=== PATIENT | female | born 1940 | race African-American/Black ===

== ENCOUNTER 2016-08-09 20:18 | Observation (INO) | payer MEDICARE ==
[~2016-08-09] VITALS: Ht 160 cm; Wt 72.1 kg
[2016-08-09 21:48] LABS: BASOPHILS 0.2 % (0-2); EOSINOPHILS 0.6 % (0-7); HEMATOCRIT 33.1 % (36.0-48.0); HEMOGLOBIN 10.5 g/dL (12-16); IMMATURE GRANULOCYTES 0.2 % (0-5); LYMPHOCYTES 20.2 % (15-50); MCHC 31.7 g/dL (31.0-37.0); MCV 91.4 fL (80.0-100.0); MEAN PLATELET VOLUME 9.9 fL (7.4-10.4); MONOCYTES 7.7 % (2-11); NEUTROPHILS 71.1 % (40-80); PLATELET COUNT 162 10x3/uL (130-400); RBC 3.62 10x6/uL (4.00-5.40); WBC 6.2 10x3/uL (4.8-10.8)
[2016-08-09 22:08] LABS: APPEARANCE CLEAR (CLEAR); BILIRUBIN NEGATIVE (NEGATIVE); COLOR YELLOW (YELLOW); GLUCOSE NEGATIVE (NEGATIVE); KETONE NEGATIVE (NEGATIVE); NITRITE NEGATIVE (NEGATIVE); PROTEIN TRACE mg/dL (NEGATIVE); UROBILINOGEN NORMAL (NORMAL)
[2016-08-09 22:11] LABS: LEUKOCYTE ESTERASE NEGATIVE (NEGATIVE)
[2016-08-09 22:14] LABS: ALBUMIN 3.6 g/dL (3.4-5.0); ANION GAP 13.8 mmol/L (8-16); BILIRUBIN - TOTAL 0.16 mg/dL (0.2-1.3); CALCIUM 8.6 mg/dL (8.5-10.1); CARBON DIOXIDE 26.4 mmol/L (21.0-32.0); CREATININE - SERUM 2.8 mg/dL (0.6-1.3); POTASSIUM - SERUM 4.2 mmol/L (3.5-5.1); PROTEIN - SERUM 7.1 g/dL (6.4-8.2)
--- NOTE | 2016-08-10 02:03 | NUR ---
RECEIVED FROM ER, PT STATES WOULD LIKE TO BE LEFT ALONE FOR A LITTLE WHILE,ER SAID BLOODSUGAR WAS 85, WILL CONTINUE TO MONITOR, BED IS LOW, SRX2, CALL LIGHT IN REACH,
[2016-08-10] MEDS ORDERED: K-TAB10 MEQ PO (02:50)
[2016-08-10] MEDS ORDERED: FUROSEMIDE20 MG PO (02:51)
[2016-08-10] MEDS ORDERED: METOPROLOL TAR100 M1 PO (02:52)
[2016-08-10] MEDS ORDERED: HYDRALAZINE HCL50 MG PO (02:53)
[2016-08-10] MEDS ORDERED: PRINIVIL20 MG PO (02:54)
[2016-08-10] MEDS ORDERED: NORVASC10 MG PO (02:54)
[2016-08-10 04:00] VITALS: BP 185/67
[2016-08-10 05:17] VITALS: Ht 160 cm; Wt 72.1 kg
--- NOTE | 2016-08-10 07:00 | NUR ---
RECEIVED REPORT. ASSUMED CARE OF PATIENT. CALL LIGHT WITHIN REACH. LYING ON RIGHT LATERAL SIDE, EYES CLOSED, EASILY AROUSED. RESP EVEN AND UNLABORED. ALERT/ORIENTED. DENIES NEEDS. NO DISTRESS.
[2016-08-10 08:00] VITALS: BP 172/62
--- NOTE | 2016-08-10 08:26 | NUR ---
SITTING UP IN BED CONSUMING AM MEAL AT THIS TIME. ALERT/ORIENTED. IV FLUIDS INFUSING ORDERED.
--- NOTE | 2016-08-10 11:00 | NUR ---
FSBS 91. NO DISTRESS.
--- NOTE | 2016-08-10 11:30 | NUR ---
22 GAUGE IV PLACED TO RIGHT HAND BY KARINA NEWELL. GOOD BLOOD RETURN, EASY FLUSH. TAPED, DATED AND SECURED. IV FLUIDS INFUSING ORDERED. 18 GAUGE IV TO RIGHT AC FOUND TO HAVE INFILTRATED DRESSING LOOSE ON TOP OF IV CATH SITE. 18 GAUGE CATHETER REMOVED, CATHETER TIP INTACT. 2X2 GAUZE APPLIED AND SECURED WITH TAPE. NO DISTRESS.
[2016-08-10 12:00] VITALS: BP 184/65
[2016-08-10 13:58] LABS: BASOPHILS 0.2 % (0-2); EOSINOPHILS 1.5 % (0-7); HEMATOCRIT 29.9 % (36.0-48.0); HEMOGLOBIN 9.7 g/dL (12-16); IMMATURE GRANULOCYTES 0.2 % (0-5); LYMPHOCYTES 34.2 % (15-50); MCH 29.7 pg (26.0-34.0); MCHC 32.4 g/dL (31.0-37.0); MCV 91.4 fL (80.0-100.0); MEAN PLATELET VOLUME 10.6 fL (7.4-10.4); MONOCYTES 6.7 % (2-11); NEUTROPHILS 57.2 % (40-80); PLATELET COUNT 176 10x3/uL (130-400); RBC 3.27 10x6/uL (4.00-5.40); RDW 15.1 % (11.5-14.5); WBC 5.2 10x3/uL (4.8-10.8)
[2016-08-10 14:10] LABS: % SATURATION 28 % (15-55); IRON 59 ug/dl (35-150); TOTAL IRON BIND CAPACITY 210 ug/dl (260-445); UNSAT IRON BIND CAPACITY 151 ug/dl (150-375)
[2016-08-10 14:26] LABS: CALCIUM 8.2 mg/dL (8.5-10.1); CARBON DIOXIDE 27.6 mmol/L (21.0-32.0); CREATININE - SERUM 2.4 mg/dL (0.6-1.3); POTASSIUM - SERUM 4.6 mmol/L (3.5-5.1)
[2016-08-10 14:32] LABS: HEMOGLOBIN A1C 5.7 % (4.8-6.0)
[2016-08-10 15:08] LABS: ERYTHROCYTE SEDIMENTATION RATE 18 mm/hr (0-30)
[2016-08-10 15:35] LABS: APPEARANCE CLEAR (CLEAR); BILIRUBIN NEGATIVE (NEGATIVE); COLOR STRAW (YELLOW); GLUCOSE NEGATIVE (NEGATIVE); KETONE NEGATIVE (NEGATIVE); LEUKOCYTE ESTERASE NEGATIVE (NEGATIVE); NITRITE NEGATIVE (NEGATIVE); PROTEIN TRACE mg/dL (NEGATIVE); SPECIFIC GRAVITY 1.005 (1.005-1.020); UROBILINOGEN NORMAL (NORMAL)
[2016-08-10 15:37] LABS: PRO/CRE RATIO URINE 1.9 mg/g; PROTEIN - URINE 51.8 mg/dL (0.0-11.9)
[2016-08-10 15:42] LABS: BACTERIA FEW /hpf (NONE SEEN); EPITHELIAL CELLS OCC /hpf (0-5); HYALINE CAST RARE /lpf (NONE SEEN); RED CELLS - URINE RARE /hpf (0-5); WHITE CELLS - URINE OCC /hpf (0-5)
[2016-08-10 16:00] VITALS: BP 169/69
--- NOTE | 2016-08-10 16:00 | NUR ---
DENIES NEEDS AT THIS TIME. CALL LIGHT WITHIN REACH. SPECIMENS COLLECTED AND TAKEN TO LAB. NO DISTRESS.
--- NOTE | 2016-08-10 18:11 | NUR ---
RESTING IN BED WITH EYES OPEN. WAITING FOR DISCHARGE PAPERWORK TO BE COMPLETED AT THIS TIME. NO DISTRESS. CALL LIGHT WITHIN REACH.
--- NOTE | 2016-08-10 19:19 | NUR ---
DISCHARGE INSTRUCTIONS PROVIDED TO PATIENT AT THIS TIME. PATIENT VERBALIZED ALL INSTRUCTIONS PROVIDED. DENIES NEEDS AT THIS TIME. PATIENT STATES HER FAMILY IS ON HER WAY TO GET HER. IV TO BE D/C'D BY NOC NURSE.
--- NOTE | 2016-08-10 19:57 | NUR ---
REMOVED IV, CATHER INTACT, PT BEING DISCHARGED HOME [facility] FAMILY, REFUSED TO BE TAKEN DOWN VIA WHEELCHAIR
[2016-08-13 07:18] LABS: FOLATE (FOLIC ACID) - SERUM 10.1 ng/mL (>3.0)
== END 2016-08-10 19:58 | disposition home or self-care (01) ==
LOC: D.ER 20:18 → D.M2 23:13 → OBSVTIME 23:13 → D.M2 23:13
PROVIDERS: Internal Medicine Nephrology; Physician Assistant; ADMIT Family Medicine
DX: E16.2 Hypoglycemia, unspecified (principal); I10 Essential (primary) hypertension; N17.9 Acute kidney failure, unspecified; D64.9 Anemia, unspecified

== ENCOUNTER 2018-05-06 10:34 | Inpatient (IN) | payer MEDICARE ==
[~2018-05-06] VITALS: Ht 160 cm; Wt 66.0 kg
--- NOTE | ~2018-05-06 | EC ---
PATIENT:JESS REYES DATE OF SERVICE: 05/09/18 SEX: F MEDICAL RECORD: [id number] DATE OF : 40 LOCATION:D.M2 D.210 AGE OF PATIENT: 78 ADMISSION DATE: 05/09/18 REFERRING PHYSICIAN: INTERPRETING PHYSICIAN: KELY GREENBERG MD ECHOCARDIOGRAM REPORT ECHO CHARGES 4 ECHO COMPLETE Date: 05/10/18 CLINICAL DIAGNOSIS: EVAL FUNCTION, WEAKNESS/SOB ECHOCARDIOGRAPHIC MEASUREMENTS (adult normal given) AC root (d.<3.7cm) 3.4 cm LV Septum d (<1.2 cm> 1.5 cm Valve Excursion 1.7 cm LV Septum (systole) 1.6 cm Left Atria (s.<4.0cm> 4.4 cm LVPW d(<1.2cm) 1.4 cm RV (d.<2.3cm) 3.9 cm LVPW (sytole) 1.8 cm LV diastole(<5.6CM) 4.2 cm MV E-F(>70mm/sec) cm LV systole 2.6 cm LVOT Diameter 1.8 cm MV exc.(>10mm) 2.2 cm Est.ejection fraction (50-75%) % DOPPLER: LVIT cm/sec A 86.0 cm/sec E 86.0 cm/sec LA cm/sec RVSP 48 mmHg LVOT 104 cm/sec AOP1/2T m/s Asc. Ao 172 cm/sec RVOT 150 cm/sec RA cm/sec PA 188 cm/sec AV Gradient Peak 11.77mmHg AV Mean 7.97 mmHg AV Area 1.6 cm MV Gradient Peak 6.28 mmHg MV Mean 3.73 mmHg MV Area cm COMMENTS: Towel Sewer: [place] [employer] Elementary Educator: 1 Dr. Greenberg TAPE# PACS Pericardial Effusion Y DATE OF SERVICE: 05/10/2018 ECHOCARDIOGRAM DATE OF SERVICE: 05/10/2018 FINDINGS: 1. Left ventricular chamber size is within normal limits. Left ventricular systolic function is normal. Overall ejection fraction estimated at 65%. 2. Left atrium is enlarged at 4.4 cm. Right atrium and right ventricular ECHOCARDIOGRAM REPORT [id number] JESS REYES chamber sizes are as well mildly dilated. 3. Valvular structures have normal structure and motion. 4. Doppler interrogation reveals trace mitral regurgitation, mild tricuspid regurgitation, no other valvular insufficiency or stenosis. Pulmonary systolic pressure is estimated at 48 mmHg. 5. No evidence of pericardial effusion or left ventricular thrombus. TRANSINT:[id number] Voice Confirmation ID: [id number] DOCUMENT ID: [id number] KELY GREENBERG MD CC: [id number] DICTATION DATE: 05/11/18 0856 PORTFOLIO SPECIALIST: 05/11/18 0939 ADM IN [facility] [address] [place] [address]
[~2018-05-06 10:34] MED LIST: FUROSEMIDE20 MG PO; HYDRALAZINE HCL50 MG PO; K-TAB10 MEQ PO; METOPROLOL TAR100 M1 PO; NORVASC10 MG PO; PRINIVIL20 MG PO
[2018-05-06] MEDS ORDERED: LISINOPRIL20 MG PO (10:38)
[2018-05-06] MEDS ORDERED: CARDURA4 MG PO (10:39)
[2018-05-06 11:17] LABS: BASOPHILS 0.1 % (0-2); EOSINOPHILS 0.3 % (0-7); HEMATOCRIT 21.9 % (36.0-48.0); IMMATURE GRANULOCYTES 0.1 % (0-5); LYMPHOCYTES 17.3 % (15-50); MCH 27.9 pg (26.0-34.0); MCV 87.3 fL (80.0-100.0); MEAN PLATELET VOLUME 9.5 fL (7.4-10.4); MONOCYTES 7.1 % (2-11); NEUTROPHILS 75.1 % (40-80); PLATELET COUNT 190 10x3/uL (130-400); RBC 2.51 10x6/uL (4.00-5.40); RDW 14.7 % (11.5-14.5); WBC 6.8 10x3/uL (4.8-10.8)
--- NOTE | 2018-05-06 11:24 | NUR ---
NOTIFIED BY LAB OF CRITICAL HEMOGLOBIN OF 7.0. TREATING PROVIDER NOTIFIED.
[2018-05-06 11:27] LABS: ALBUMIN 2.7 g/dL (3.4-5.0); ALKALINE PHOSPHATASE 59 U/L (46-116); ALT (SGPT) 12 U/L (10-68); BILIRUBIN - TOTAL 0.18 mg/dL (0.2-1.3); CALC OSMOLALITY 294 mosm/kg (275-300); CALCIUM 7.8 mg/dL (8.5-10.1); CARBON DIOXIDE 23.6 mmol/L (21.0-32.0); CHLORIDE - SERUM 106 mmol/L (98-107); CREATININE - SERUM 4.6 mg/dL (0.6-1.3); GLUCOSE 114 mg/dL (74-106); POTASSIUM - SERUM 3.9 mmol/L (3.5-5.1); PROTEIN - SERUM 6.6 g/dL (6.4-8.2); SODIUM 141 mmol/L (136-145); UREA NITROGEN 49 mg/dL (7-18); eGFR NON AFRICAN AMERICAN 10 mL/min (90-120)
[2018-05-06 11:28] LABS: INR 1.21 (0.85-1.17); PROTIME 14.8 SECONDS (11.6-15.0)
[2018-05-06 11:38] LABS: CKMB 0.5 U/L (0.0-3.6); CREATINE KINASE 51 UL (21-215); MAGNESIUM - SERUM 1.9 mg/dL (1.8-2.4); TROPONIN-I < 0.017 ng/mL (0.000-0.060)
--- NOTE | 2018-05-06 11:46 | NUR ---
OCCULT BLOOD STOOL SAMPLE NEGATIVE, TREATING PROVIDER NOTIFIED.
--- NOTE | 2018-05-06 13:30 | NUR ---
NEW ADMIT FROM ER WITH COMPLAINTS OF SUDDEN ONSET WEAKNESS AND ANEMIA. HGB IS 7.0. 20G IV TO LT HAND SL.TELEMETRY PLACED SHOWING SR 78. ORIENTED PATIENT TO ROOM AND CALL LIGHT. PATIENT DENIES ANY NEEDS OR PAIN. SR UP X 2 BED IN LOW POSITION AND CALL LIGHT IN REACH.
[2018-05-06 14:16] VITALS: BP 160/55; BMI 25.9
--- NOTE | 2018-05-06 15:30 | NUR ---
ORDER TO INFUSE ONE UNIT OF PRBC'S. PRE-INFUSION VSS. INFUSION STARTED. STAYED IN ROOM WITH PATIENT FOR 20 MINUTES. VSS. PATIENT DENEIS ANY NEEDS OR PAIN. WILL CONTINUE TO MONITOR. SR UP X 2 BED IN LOW POSITION AND CALL LIGHT IN REACH.
[2018-05-06 17:12] LABS: % SATURATION 4 % (15-55); IRON 9 ug/dl (35-150); TOTAL IRON BIND CAPACITY 197 ug/dl (260-445); UNSAT IRON BIND CAPACITY 188 ug/dl (150-375)
--- NOTE | 2018-05-06 18:05 | NUR ---
INFUSION COMPLETE. VSS. PATIENT DENIES ANY NEEDS OR PAIN. WILL CONTINUE TO MONITOR. SR UP X 2 BED IN LOW POSITION AND CALL LIGHT IN REACH.
[2018-05-06 18:31] VITALS: BP 168/78
--- NOTE | 2018-05-06 19:40 | NUR ---
SECOND INFUSION BEGUN OF ONE UNIT PRBC'S. PRE-INFUSION VSS. STAYED IN ROOM WITH PATIENT FOR 20 MINUTES. VSS. PATIENT DENIES ANY NEEDS OR PAIN. WILL CONTINUE TO MONITOR. SR UP X 2 BED IN LOW POSTION AND CALL LIGHT IN REACH.
--- NOTE | 2018-05-06 20:35 | NUR ---
RESUMING PT CARE. PT IS ALERT LAYING IN BED. NO C/O VOICED AT THIS TIME. RESPIRATIONS EVEN AND UNLABORED. NO S/S OF DISTRESS. PT HAS BLOOD TRANSFUSING. PT HAS A IV IN THE LEFT HAND. PT IS ON ROOM AIR. BED IN LOW POSITION WITH CALL LIGHT IN REACH. WILL CONTINUE TO MONITOR PT AND FOLLOW PLAN OF CARE.
--- NOTE | 2018-05-06 22:00 | NUR ---
2150 BLOOD TRANSFUSION COMPLETED. PT TOLERATED INFUSION WELL. NO S/S OF DISTRESS. RESPIRATIONS EVEN AND UNLABORED. NO ALLERGIC REACTION. WILL CONTINUE TO MONITOR PT AND FOLLOW PLAN OF CARE.
[2018-05-06 22:36] VITALS: BP 152/49
[2018-05-07] VITALS: BP 156/65
--- NOTE | 2018-05-07 04:24 | NUR ---
I have reviewed this patient and I concur with the Shift Assessment completed by the Licensed Practical Nurse today this shift.
[2018-05-07 06:01] LABS: BASOPHILS 0.2 % (0-2); EOSINOPHILS 0.5 % (0-7); IMMATURE GRANULOCYTES 0.2 % (0-5); LYMPHOCYTES 23.1 % (15-50); MCH 28.2 pg (26.0-34.0); MCHC 32.7 g/dL (31.0-37.0); MCV 86.1 fL (80.0-100.0); MEAN PLATELET VOLUME 9.6 fL (7.4-10.4); MONOCYTES 9.2 % (2-11); NEUTROPHILS 66.8 % (40-80); PLATELET COUNT 192 10x3/uL (130-400); RDW 14.7 % (11.5-14.5); WBC 6.5 10x3/uL (4.8-10.8)
[2018-05-07 06:06] VITALS: BP 153/67
[2018-05-07 06:22] LABS: ANION GAP 15.3 mmol/L (8-16); CARBON DIOXIDE 24.5 mmol/L (21.0-32.0); CREATININE - SERUM 4.3 mg/dL (0.6-1.3); HEMATOCRIT 26.6 % (36.0-48.0); HEMOGLOBIN 8.7 g/dL (12-16); POTASSIUM - SERUM 3.8 mmol/L (3.5-5.1); RBC 3.09 10x6/uL (4.00-5.40)
--- NOTE | 2018-05-07 07:10 | NUR ---
REPORT RECEIVED FROM ELECTRO MECHANICAL ENGINEER. PATIENT LAYING IN BED ON BACK WITH EYES CLOSED AND BREATHING EVENLY. VSS. WILL CONTINUE WITH PLAN OF CARE. SR UP X 2 BED IN LOW POSITION AND CALL LIGHT IN REACH.
[2018-05-07 09:06] VITALS: BP 160/62
[2018-05-07 13:02] VITALS: BP 151/63
--- NOTE | 2018-05-07 14:35 | NUR ---
PATIENT SITTING UP IN BED VISITING WITH FAMILY MEMBERS. VSS. PATIENT DENIES ANY NEEDS OR PAIN. WILL CONTINUE TO MONITOR. SR UP X 2 BED IN LOW POSITION AND CALL LIGHT IN REACH.
--- NOTE | 2018-05-07 14:50 | NUR ---
PATIENT REFUSING TO WEAR SCD'S.
[2018-05-07 18:32] VITALS: BP 149/70
[2018-05-07 20:00] VITALS: BP 152/63
--- NOTE | 2018-05-07 20:30 | NUR ---
RESUMINGPT CARE. PT IS ALERT LAYING IN BED WATCHING TV. NO C/O VOICED. NO S/S OF DISTRESS NOTED. RESPIRATIONS EVEN AND UNLABORED. BED IN LOW POSITION WITH CALL LIGHT IN REACH. WILL CONTINUE TO MONITOR PT AND FOLLOW PLAN OF CARE.
[2018-05-08] VITALS: BP 163/68
--- NOTE | 2018-05-08 03:26 | NUR ---
I have reviewed this patient and I concur with the Shift Assessment completed by the Licensed Practical Nurse today this shift.
[2018-05-08 04:00] VITALS: BP 150/61
[2018-05-08 05:04] LABS: CARBON DIOXIDE 23.5 mmol/L (21.0-32.0); CREATININE - SERUM 4.5 mg/dL (0.6-1.3); POTASSIUM - SERUM 4.5 mmol/L (3.5-5.1)
[2018-05-08 05:25] LABS: BASOPHILS 0.2 % (0-2); EOSINOPHILS 0.7 % (0-7); HEMATOCRIT 27.3 % (36.0-48.0); IMMATURE GRANULOCYTES 0.2 % (0-5); LYMPHOCYTES 29.7 % (15-50); MCH 28.6 pg (26.0-34.0); MCV 86.7 fL (80.0-100.0); MEAN PLATELET VOLUME 9.9 fL (7.4-10.4); MONOCYTES 9.4 % (2-11); NEUTROPHILS 59.8 % (40-80); PLATELET COUNT 196 10x3/uL (130-400); RBC 3.15 10x6/uL (4.00-5.40); RDW 14.8 % (11.5-14.5); WBC 5.6 10x3/uL (4.8-10.8)
--- NOTE | 2018-05-08 07:10 | NUR ---
REPORT RECIEVED FROM GENERATING PLANT SUPERINTENDENT AND PATIENT CARE ASSUMED. PATIENT LAYING IN BED ON BACK WITH EYES CLOSED AND BREATHING EVENLY. VSS. WILL CONTINUE WITH PLAN OF CARE. SR UP X 2 BED IN LOW POSITION AND CALL LIGHT IN REACH.
[2018-05-08 10:15] VITALS: BP 166/65
--- NOTE | 2018-05-08 17:10 | NUR ---
PATIENT IS STABLE AND UNCHANGED. SITTING UP IN BED WATCHING TV. PATIENT DENIES ANY NEEDS OR PAIN. WILL CONTINUE TO MONITOR. SR UP X 2 BED IN LOW POSITION AND CALL LIGHT IN REACH.
[2018-05-08 17:36] VITALS: BP 159/65
[2018-05-08 18:33] LABS: THYROID STIMULATING HORMONE 0.66 uIU/mL (0.36-3.74)
--- NOTE | 2018-05-08 19:57 | NUR ---
RESUMING PT CARE. PT IS ALERT LAYING IN BED. NO C/O VOICED. RESPIRATIONS EVEN AND UNLABORED. NO S/S OF DISTRESS NOTED. BED IN LOW POSITION WITH CALL LIGHT IN REACH. WILL CONTINUE TO MONITOR PT AND FOLLOW PLAN OF CARE.
[2018-05-08 20:00] VITALS: BP 144/62
[2018-05-09] VITALS (7 sets, daily range): BP systolic 140–173; BP diastolic 64–86
--- NOTE | 2018-05-09 02:47 | NUR ---
I have reviewed this patient and I concur with the Shift Assessment completed by the Licensed Practical Nurse today this shift.
[2018-05-09 05:34] LABS: ANION GAP 15.5 mmol/L (8-16); CALCIUM 8.1 mg/dL (8.5-10.1); CARBON DIOXIDE 22.8 mmol/L (21.0-32.0); CREATININE - SERUM 4.6 mg/dL (0.6-1.3); POTASSIUM - SERUM 4.3 mmol/L (3.5-5.1)
[2018-05-09 05:43] LABS: BASOPHILS 0.2 % (0-2); EOSINOPHILS 0.3 % (0-7); HEMATOCRIT 26.8 % (36.0-48.0); HEMOGLOBIN 8.6 g/dL (12-16); IMMATURE GRANULOCYTES 0.2 % (0-5); LYMPHOCYTES 20.6 % (15-50); MCH 28.1 pg (26.0-34.0); MCHC 32.1 g/dL (31.0-37.0); MCV 87.6 fL (80.0-100.0); MEAN PLATELET VOLUME 9.9 fL (7.4-10.4); NEUTROPHILS 71.7 % (40-80); PLATELET COUNT 208 10x3/uL (130-400); RBC 3.06 10x6/uL (4.00-5.40); RDW 14.7 % (11.5-14.5); WBC 6.1 10x3/uL (4.8-10.8)
--- NOTE | 2018-05-09 06:28 | NUR ---
PT LAYING IN BED RESTING COMFORTABLY WITH EYES CLOSED. RESPIRATIONS EVEN AND UNLABORED. NO S/S OF DISTRESS. BED IN LOW POSITION WITH CALL LIGHT IN REACH. WILL CONTINUE TO MONITOR PT AND FOLLOW PLAN OF CARE.
--- NOTE | 2018-05-09 09:02 | NUR ---
RESUMING PT CARE, PT IS LAYING IN BED ALERT AND ORIENTED X3, RESPIRATIONS EVEN AND UNLABORED. CALL LIGHT IN REACH. WILL CONTINUE TO MONITOR AND FOLLOW PLAN OF CARE.
--- NOTE | 2018-05-09 10:04 | NUR ---
I have reviewed this patient and I concur with the Shift Assessment completed by the Licensed Practical Nurse today this shift.
--- NOTE | 2018-05-09 15:39 | NUR ---
URINE COLLECTED AND SENT TO THE LAB.
[2018-05-09 15:57] LABS: CREATININE - URINE 68.4 mg/dL (30-125)
--- NOTE | 2018-05-09 15:59 | NUR ---
PT IS LAYING IN BED WITH EYES CLOSED, RESPIRATIONS EVEN AND UNLABORED. CALL LIGHT IN REACH, WILL CONTINUE TO MONITOR AND FOLLOW PLAN OF CARE.
[2018-05-09 16:32] LABS: APPEARANCE HAZY (CLEAR); BILIRUBIN NEGATIVE (NEGATIVE); COLOR YELLOW (YELLOW); GLUCOSE NEGATIVE (NEGATIVE); KETONE NEGATIVE (NEGATIVE); NITRITE NEGATIVE (NEGATIVE); PROTEIN 3+ mg/dL (NEGATIVE); UROBILINOGEN NORMAL (NORMAL)
[2018-05-09 16:33] LABS: RED CELLS - URINE NONE SEEN /hpf (0-5); WHITE CELLS - URINE 0-5 /hpf (0-5)
--- NOTE | 2018-05-09 18:27 | NUR ---
24 HOUR COLLECTION OF URINE STARTED, PT VERBALIZES INSTRUCTIONS.
--- NOTE | 2018-05-09 19:20 | NUR ---
RECEIVED REPORT, WILL ASSUME CARE OF PT, SLEEPING, NO DISTRESS NOTICE AT THIS TIME, BED IS LOW, SRX 2, CALL LIGHT IN REACH, WILL CONTINUE PLAN OF CARE
[2018-05-10] VITALS: BP 158/63
--- NOTE | 2018-05-10 01:29 | NUR ---
I have reviewed this patient and I concur with the Shift Assessment completed by the Licensed Practical Nurse today this shift.
[2018-05-10 04:46] LABS: BASOPHILS 0.2 % (0-2); EOSINOPHILS 0 % (0-7); HEMATOCRIT 28.6 % (36.0-48.0); HEMOGLOBIN 9.1 g/dL (12-16); IMMATURE GRANULOCYTES 0.2 % (0-5); LYMPHOCYTES 14.3 % (15-50); MCH 28.2 pg (26.0-34.0); MCHC 31.8 g/dL (31.0-37.0); MCV 88.5 fL (80.0-100.0); MEAN PLATELET VOLUME 9.8 fL (7.4-10.4); MONOCYTES 7.5 % (2-11); NEUTROPHILS 77.8 % (40-80); PLATELET COUNT 223 10x3/uL (130-400); RBC 3.23 10x6/uL (4.00-5.40); RDW 14.6 % (11.5-14.5)
[2018-05-10 04:51] LABS: WBC 8.8 10x3/uL (4.8-10.8)
[2018-05-10 04:53] LABS: ANION GAP 16.9 mmol/L (8-16); CALCIUM 8.3 mg/dL (8.5-10.1); CARBON DIOXIDE 22.4 mmol/L (21.0-32.0); CREATININE - SERUM 4.6 mg/dL (0.6-1.3); POTASSIUM - SERUM 4.3 mmol/L (3.5-5.1)
[2018-05-10 05:08] VITALS: BP 164/70
[2018-05-10 09:04] VITALS: BP 155/64
--- NOTE | 2018-05-10 09:37 | NUR ---
I have reviewed this patient and I concur with the Shift Assessment completed by the Licensed Practical Nurse today this shift.
[2018-05-10 11:11] VITALS: BP 111/51
--- NOTE | 2018-05-10 12:22 | NUR ---
DR FIGUEROA IN TO SEE PT , NEW ORDERS FOR A PT CONSULT FOR REHAB, CALORIE COUNT, DIETARY CONSULT AND ADD NEPRO TO DIET. ORDERS NOTED.
--- NOTE | 2018-05-10 14:29 | MORECARE ---
CASE MANAGEMENT DISCHARGE SUMMARY PATIENT: JESS REYES UNIT: [id number] ADM DATE: 05/09/18 AGE: 78 : 40 SEX: F ROOM/BED: D.2105 AUTHOR: SIGIFREDO MILLER PHYSICIAN: REFERRING PHYSICIAN: ALLIE FIGUEROA MD DATE OF SERVICE: 05/10/18 Discharge Plan Patient Name: JESS REYES Facility: [facility]:[place] : 1940 Planned Disposition: Inpatient Rehab Facility Anticipated Discharge Date: Discharge Date: Expected LOS: Initial Reviewer: [email or web address] Initial Review Date: 05/06/2018 Generated: 05/10/18 3:28 pm Comments DCP- Discharge Planning Updated by [email or web address]: Mary Weber on 05/10/18 10:[address] 1130 CM WENT TO THE PATIENT'S ROOM TO DISCUSS DISCHARGE PLANNING. CM CONSULT ORDER HAD BEEN RECEIVED 05/09/18. SHE HAD THREE VISITORS AT THE BEDSIDE. SHE REQUESTED THE CM TO RETURN LATER. PLAN- REVISIT PER PATIENT'S REQUEST. Coverage Notice Reviewer: [id number] Jovany Estefania Mcnabb Notice Issued Date-Time: 05/07/2018 15:48 Notice Type: Medicare Outpatient Observation Notice Notice Delivered To: Patient Relationship to Patient: Self Logger Driving Horses Name: Delivery Method: HAND - Hand Delivered Ashley Days: Prior Verbal Notification: Recipient Understood Notice: Yes Recipient Signature: Yes Med Rec Note Co-signed by Attending: Coverage Notice Comment: Patient Name: JESS REYES Page [phone] at 1429 All edits/amendments must be made on the electronic document DICTATION DATE: 05/10/181427 BUSINESS CHANGE MANAGER: IGNACIA 05/10/18 142 RPT#: [id number] DC DATE: STATUS: ADM IN [facility] [address] [place] [address] END OF REPORT
--- NOTE | 2018-05-10 14:38 | MORECARE ---
CASE MANAGEMENT DISCHARGE SUMMARY PATIENT: JESS REYES UNIT: [id number] ADM DATE: 05/09/18 AGE: 78 : 40 SEX: F ROOM/BED: D.2105 AUTHOR: ANGELA,DOC PHYSICIAN: REFERRING PHYSICIAN: ALLIE FIGUEROA MD DATE OF SERVICE: 05/10/18 Discharge Plan Patient Name: JESS REYES Facility: [facility]:[place] : 1940 Planned Disposition: Inpatient Rehab Facility Anticipated Discharge Date: Discharge Date: Expected LOS: Initial Reviewer: [email or web address] Initial Review Date: 05/06/2018 Generated: 05/10/18 3:38 pm Comments DCP- Discharge Planning Updated by [email or web address]: Mary Weber on 05/10/18 1:[address] REVISIT FOR DISCHARGE PLANNING. VISITOR AT THE BEDSIDE. PATIENT ASK CM TO RETURN IN A FEW MINUTES. ON RETURN PATIENT STATES SHE WANTS INPATIENT REHAB. SHE HAS DISCUSSED THIS WITH MD ON HIS ROUNDS. SHE STATES SHE IS TOO WEAK TO GO HOME. SHE LIVES ALONE. FEELS SAFE IN HER HOME BUT TO WEAK TO TAKE CARE OF HERSELF OR PREPARE MEALS. SHE IS NOT RECEIVING ANY COMMUNITY OR HOME HEALTH SERVICES. SHE WOULD LIKE MEALS ON WHEELS AND A EMERGENCY CALL SYSTEM AT DISCHARGE. YAZIDI MEMEBERS AT THE DOOR. CM TO RETURN. PHYSICAL THERAPY AND OT EVAL PENDING. REHAB PRESCREENING HAS BEEN ORDERED. DCP- Discharge Planning Updated by [email or web address]: Mary Weber on 05/10/18 10:[address] 1130 CM WENT TO THE PATIENT'S ROOM TO DISCUSS DISCHARGE PLANNING. CM CONSULT ORDER HAD BEEN RECEIVED 05/09/18. SHE HAD THREE VISITORS AT THE BEDSIDE. SHE REQUESTED THE CM TO RETURN LATER. PLAN- REVISIT PER PATIENT'S REQUEST. Coverage Notice Reviewer: [id number] Jovany Estefania [place] Notice Issued Date-Time: 05/07/2018 15:48 Notice Type: Medicare Outpatient Observation Notice Notice Delivered To: Patient Relationship to Patient: Self Track Welder Name: Delivery Method: HAND - Hand Delivered Ashley Days: Prior Verbal Notification: Recipient Understood Notice: Yes Recipient Signature: Yes Med Rec Note Co-signed by Attending: Coverage Notice Comment: Last DP export: 05/10/18 1:29 p Patient Name: JESS REYES Page [phone] at 1438 All edits/amendments must be made on the electronic document DICTATION DATE: 05/10/181437 CHART SNATCHER: IGNACIA 05/10/181437 RPT#: [id number] DC DATE: STATUS: ADM IN [facility] [address] [place] [address] END OF REPORT
--- NOTE | 2018-05-10 14:47 | NUR ---
rehab prescreen: this pt was ready to discharge and family feels he is too weak and not ready to return home. this pt has [employer] insurance and will required prior authorzation before able to accept. pt has walked 250ft with 25% assist with therapy yesterday, will fax in for authorzation and wit for their approval. thank you for this eval. reny shell lpn
[2018-05-10 16:42] VITALS: BP 182/69
--- NOTE | 2018-05-10 18:13 | NUR ---
IV INFILTRATED, REMOVED IV AND STARTED NEW ONE TO LEFT FOREARM.
--- NOTE | 2018-05-10 19:16 | NUR ---
RECEIVED REPORT, WILL ASSUME CARE OF PT, SLEEPING, NO DISTRESS NOTICED AT THIS TIME, BED IS LOW, SRX2, CALL LIGHT IN REACH, WILL CONTINUE PLAN OF CARE
[2018-05-10 20:04] VITALS: BP 141/57
--- NOTE | 2018-05-10 23:35 | NUR ---
SLEEPING, NO DISTRESS NOTICE, CALL LIGHT IN REACH, WILL CONTINUE PLAN OF CARE
[2018-05-11] VITALS (7 sets, daily range): BP systolic 122–177; BP diastolic 46–66; BMI 25.8
--- NOTE | 2018-05-11 03:59 | NUR ---
I have reviewed this patient and I concur with the Shift Assessment completed by the Licensed Practical Nurse today this shift.
[2018-05-11 05:54] LABS: BASOPHILS 0.1 % (0-2); EOSINOPHILS 0.2 % (0-7); HEMATOCRIT 27.9 % (36.0-48.0); HEMOGLOBIN 8.8 g/dL (12-16); IMMATURE GRANULOCYTES 0.2 % (0-5); LYMPHOCYTES 10.9 % (15-50); MCH 27.8 pg (26.0-34.0); MCHC 31.5 g/dL (31.0-37.0); MEAN PLATELET VOLUME 9.9 fL (7.4-10.4); MONOCYTES 9.7 % (2-11); NEUTROPHILS 78.9 % (40-80); PLATELET COUNT 232 10x3/uL (130-400); RBC 3.17 10x6/uL (4.00-5.40); RDW 14.5 % (11.5-14.5); WBC 10.6 10x3/uL (4.8-10.8)
[2018-05-11 06:19] LABS: CALCIUM 8.2 mg/dL (8.5-10.1); CARBON DIOXIDE 21.9 mmol/L (21.0-32.0); CREATININE - SERUM 4.8 mg/dL (0.6-1.3); POTASSIUM - SERUM 3.9 mmol/L (3.5-5.1)
--- NOTE | 2018-05-11 11:23 | NUR ---
Rehab Note- the patient was signed off per PT on 05/09/18, have reordered PT & OT for Pre Auth process as the patient has [employer] insurance and will require a PreAuth prior to an acute inpatient rehab stay. Will continue to follow at this time. Thank you for this referral! Zonia Murillo RN CLinical Liaison, [facility] Rehab
--- NOTE | 2018-05-11 15:10 | NUR ---
Nutrition education: visited with pt and pts sister re: low sodium renal diet Reviewed diet guidelines; however, RDN asked pt to concentrate on just eating as much as she could to increase her strength. RDN will continue to educate pt on diet during hospital stay. Following.
--- NOTE | 2018-05-11 15:32 | NUR ---
Rehab Note- The patient did well with PT, ambulating 250ft & suggests the patient go home with home health. Spoke with SENDY Novak while in patient's room. The patient is too high level for acute inpatient rehab at this time. Thank you for this referral! Zonia Murillo RN CLinical Liaison, [facility] Rehab
--- NOTE | 2018-05-11 16:40 | MORECARE ---
CASE MANAGEMENT DISCHARGE SUMMARY PATIENT: JESS REYES UNIT: [id number] ADM DATE: 05/09/18 AGE: 78 : 40 SEX: F ROOM/BED: D.6776 AUTHOR: ANGELA,DOC PHYSICIAN: REFERRING PHYSICIAN: ALLIE FIGUEROA MD DATE OF SERVICE: 05/11/18 Discharge Plan Patient Name: JESS REYES Facility: [facility]:[place] : 1940 Planned Disposition: Inpatient Rehab Facility Anticipated Discharge Date: Discharge Date: Expected LOS: Initial Reviewer: [email or web address] Initial Review Date: 05/06/2018 Generated: 05/11/18 5:40 pm DCP- Discharge Planning Updated by [email or web address]: Mary Weber on 05/10/18 1:[address] REVISIT FOR DISCHARGE PLANNING. VISITOR AT THE BEDSIDE. PATIENT ASK CM TO RETURN IN A FEW MINUTES. ON RETURN PATIENT STATES SHE WANTS INPATIENT REHAB. SHE HAS DISCUSSED THIS WITH MD ON HIS ROUNDS. SHE STATES SHE IS TOO WEAK TO GO HOME. SHE LIVES ALONE. FEELS SAFE IN HER HOME BUT TO WEAK TO TAKE CARE OF HERSELF OR PREPARE MEALS. SHE IS NOT RECEIVING ANY COMMUNITY OR HOME HEALTH SERVICES. SHE WOULD LIKE MEALS ON WHEELS AND A EMERGENCY CALL SYSTEM AT DISCHARGE. PENTECOSTAL MEMEBERS AT THE DOOR. CM TO RETURN. PHYSICAL THERAPY AND OT EVAL PENDING. REHAB PRESCREENING HAS BEEN ORDERED. DCP- Discharge Planning Updated by [email or web address]: Mary Weber on 05/10/18 10:[address] 1130 CM WENT TO THE PATIENT'S ROOM TO DISCUSS DISCHARGE PLANNING. CM CONSULT ORDER HAD BEEN RECEIVED 05/09/18. SHE HAD THREE VISITORS AT THE BEDSIDE. SHE REQUESTED THE CM TO RETURN LATER. PLAN- REVISIT PER PATIENT'S REQUEST. External Providers External Provider: [facility] Next Contact Date: 05/12/2018 Service Request Date: Service Type: Resolution: Reviewer: Comments: Coverage Notice Reviewer: [email or web address] Jovany Estefania Moreau Notice Issued Date-Time: 05/07/2018 15:48 Notice Type: Medicare Outpatient Observation Notice Notice Delivered To: Patient Relationship to Patient: Self Vmware Architect Name: Delivery Method: HAND - Hand Delivered Ashley Days: Prior Verbal Notification: Recipient Understood Notice: Yes Recipient Signature: Yes Med Rec Note Co-signed by Attending: Coverage Notice Comment: Last DP export: 05/10/18 1:38 p Patient Name: JESS REYES Page [phone] at 1640 All edits/amendments must be made on the electronic document DICTATION DATE: 05/11/18 [facility] PENCILLER: IGNACIA 05/11/18 [facility] RPT#: [id number] DC DATE: STATUS: ADM IN [facility] [address] [place] [address] END OF REPORT
--- NOTE | 2018-05-11 17:04 | MORECARE ---
CASE MANAGEMENT DISCHARGE SUMMARY PATIENT: JESS REYES UNIT: [id number] ADM DATE: 05/09/18 AGE: 78 : 40 SEX: F ROOM/BED: D.2105 AUTHOR: ANGELA,DOC PHYSICIAN: REFERRING PHYSICIAN: ALLIE FIGUERAO MD DATE OF SERVICE: 05/11/18 Discharge Plan Patient Name: JESS REYES Facility: [facility]:[place] : 1940 Planned Disposition: Home with Home Health Anticipated Discharge Date: 05/12/18 Discharge Date: Expected LOS: 3 Initial Reviewer: [email or web address] Initial Review Date: 05/06/2018 Generated: 05/11/18 6:03 pm DCP- Discharge Planning Updated by [id number]: Mary Weber on 05/10/18 1:[address] REVISIT FOR DISCHARGE PLANNING. VISITOR AT THE BEDSIDE. PATIENT ASK CM TO RETURN IN A FEW MINUTES. ON RETURN PATIENT STATES SHE WANTS INPATIENT REHAB. SHE HAS DISCUSSED THIS WITH MD ON HIS ROUNDS. SHE STATES SHE IS TOO WEAK TO GO HOME. SHE LIVES ALONE. FEELS SAFE IN HER HOME BUT TO WEAK TO TAKE CARE OF HERSELF OR PREPARE MEALS. SHE IS NOT RECEIVING ANY COMMUNITY OR HOME HEALTH SERVICES. SHE WOULD LIKE MEALS ON WHEELS AND A EMERGENCY CALL SYSTEM AT DISCHARGE. BUDDHISM MEMEBERS AT THE DOOR. CM TO RETURN. PHYSICAL THERAPY AND OT EVAL PENDING. REHAB PRESCREENING HAS BEEN ORDERED. DCP- Discharge Planning Updated by [email or web address]: Mary Weber on 05/10/18 10:[address] 1130 CM WENT TO THE PATIENT'S ROOM TO DISCUSS DISCHARGE PLANNING. CM CONSULT ORDER HAD BEEN RECEIVED 05/09/18. SHE HAD THREE VISITORS AT THE BEDSIDE. SHE REQUESTED THE CM TO RETURN LATER. PLAN- REVISIT PER PATIENT'S REQUEST. Coverage Notice Reviewer: [email or web address] Jovany Mac Minong Notice Issued Date-Time: 05/07/2018 15:48 Notice Type: Medicare Outpatient Observation Notice Notice Delivered To: Patient Relationship to Patient: Self Radioactivity Technician Name: Delivery Method: HAND - Hand Delivered Ashley Days: Prior Verbal Notification: Recipient Understood Notice: Yes Recipient Signature: Yes Med Rec Note Co-signed by Attending: Coverage Notice Comment: Reviewer: [email or web address] Quevedo Notice Issued Date-Time: 05/11/2018 15:40 Notice Type: IM Discharge Notice Notice Delivered To: Patient Relationship to Patient: Radioactivity Technician Name: Delivery Method: HAND - Hand Delivered Ashley Days: Prior Verbal Notification: Recipient Understood Notice: Yes Recipient Signature: Yes Med Rec Note Co-signed by Attending: Coverage Notice Comment: Reviewer: [email or web address] Quevedo Notice Issued Date-Time: 05/11/2018 15:40 Notice Type: Patient Choice Letter Notice Delivered To: Patient Relationship to Patient: Radioactivity Technician Name: Delivery Method: HAND - Hand Delivered Ashley Days: Prior Verbal Notification: Recipient Understood Notice: Yes Recipient Signature: Yes Med Rec Note Co-signed by Attending: Coverage Notice Comment: [facility] Last DP export: 05/11/18 3:40 pm Patient Name: JESS REYES Page [id number] at 1704 All edits/amendments must be made on the electronic document DICTATION DATE: 05/11/181702 ASSEMBLER LAY UPS: IGNACIA 05/11/181702 RPT#: [id number] DC DATE: STATUS: ADM IN [facility] [address] [place] [address] END OF REPORT
[2018-05-11 17:09] LABS: SPE - A/G RATIO 0.9 (0.7-1.7); SPE - ALBUMIN 2.7 g/dL (2.9-4.4); SPE - ALPHA-1 GLOBULIN 0.4 g/dL (0.0-0.4); SPE - ALPHA-2 GLOBULIN 0.9 g/dL (0.4-1.0); SPE - BETA GLOBULIN 0.8 g/dL (0.7-1.3); SPE - GAMMA GLOBULIN 0.9 g/dL (0.4-1.8); SPE - M-SPIKE 0.1 g/dL (Not Observed); SPE - TOTAL PROTEIN 5.6 g/dL (6.0-8.5)
--- NOTE | 2018-05-11 17:11 | MORECARE ---
CASE MANAGEMENT DISCHARGE SUMMARY PATIENT: JESS REYES UNIT: [id number] ADM DATE: 05/09/18 AGE: 78 : 40 SEX: F ROOM/BED: D.2106 AUTHOR: ANGELA,DOC PHYSICIAN: REFERRING PHYSICIAN: ALLIE FIGUEROA MD DATE OF SERVICE: 05/11/18 Discharge Plan Patient Name: JESS REYES Facility: [facility]:[place] : 1940 Planned Disposition: Home with Home Health Anticipated Discharge Date: 05/12/18 Discharge Date: Expected LOS: 3 Initial Reviewer: [id number] Initial Review Date: 05/06/2018 Generated: 05/11/18 6:10 pm Comments DCP- Discharge Planning Updated by [id number]: Abhijit Quevedo on 05/11/18 4:[address] Patient Name: JESS REYES Encounter No: [id number] : 1940 Primary Insurance: [employer] CHOICE PPO MCR ADVANT Anticipated DC Date: 05-12-2018 Planned Disposition: Home with Home Health External Planned Provider: [facility] DCP follow-up note: CM SPOKE TO PT IN ROOM TO DISCUSS DISCHARGE PLANNING AND NEEDS. CM STILL WAITING ON INSURANCE DETERMINATION FOR INPATIENT REHAB, STILL NO OCCUPATIONAL THERAPY EVAULATION. CM DISCUSSED A SECOND OPTION WITH PT IN EVENT INPATIENT REHAB IS DECLINED BY THE FACILITY OR INSURANCE COMPANY. CM DISCUSSED AVAILABILITY OF [facility] AND HOME HEALTH. PT STATES THAT IF INPATIENT DOES NOT ACCEPT, PT WILL BE GOING HOME AND WILL ACCEPT HOME HEALTH. CM PROVIDED LIST OF HOME HEALTH PROVIDERS, PT CALLED HER FRIEND TO ASSIST WITH CHOOSING HOME HEALTH AGENCY, PT'S FRIEND DIRECTED [facility] TO [facility] [address]. CM SPOKE TO BETHEL OF [facility] [address], WHO INFORMED PT THAT MOST OF THEIR CLIENTS USE [facility] BUT THEY ARE NOT RECOMMENDING ANY SPECIFIC AGENCY. PT REPORTS UNDERSTANDING. BETHEL OFFERED TO HAVE [facility] ENERGY CONSERVATION REPRESENTATIVE MEET WITH PT IN THE HOME AFTER DISCHARGE TO ASSESS FOR HOME CARE NEEDS AND POSSIBLE MEDICAID SCREENING. PT ACCEPTED OFFER. CM PROVIDED PT'S NAME AND PHONE NUMBER TO BETHEL AT PT'S REQUEST. PT SIGNED CHOICE FOR [facility]. PT DENIES FURHTER NEEDS. CM CALLED [facility] [phone], SPOKE TO [facility]AND[facility] WHO WILL ACCEPT PT AND CAN ADMIT FOR HOME HEALTH ON FRIDAY. CM FAXED HOME HEALTH REFERRAL TO [facility] AT [phone]. TO COMPLETE HOME HEALTH ARRANGEMENTS WITH [facility] AND IF PHYSICIAN AGREES, CM WILL NEED HOME HEALTH ORDER FOR OBSERVATION AND ASSESSMENT WELL PHYSICAL THERAPY. CM TO FAX DISCHARGE INFORMATION TO [facility] WITH ORDER AT [phone]. [facility] [address], , TO CONTACT PT AND PERFORM HOME ASSESSMENT FOR POSSIBLE SERVICES AFTER PT GETS HOME. Abhijit Quevedo, CASE MANAGEMENT DCP- Discharge Planning Updated by [id number]: Mary Weber on 05/10/18 1:[address] REVISIT FOR DISCHARGE PLANNING. VISITOR AT THE BEDSIDE. PATIENT ASK CM TO RETURN IN A FEW MINUTES. ON RETURN PATIENT STATES SHE WANTS INPATIENT REHAB. SHE HAS DISCUSSED THIS WITH MD ON HIS ROUNDS. SHE STATES SHE IS TOO WEAK TO GO HOME. SHE LIVES ALONE. FEELS SAFE IN HER HOME BUT TO WEAK TO TAKE CARE OF HERSELF OR PREPARE MEALS. SHE IS NOT RECEIVING ANY COMMUNITY OR HOME HEALTH SERVICES. SHE WOULD LIKE MEALS ON WHEELS AND A EMERGENCY CALL SYSTEM AT DISCHARGE. [employer]IST MEMEBERS AT THE DOOR. CM TO RETURN. PHYSICAL THERAPY AND OT EVAL PENDING. REHAB PRESCREENING HAS BEEN ORDERED. DCP- Discharge Planning Updated by [id number]: Mary Weber on 05/10/18 10:[address] 1130 CM WENT TO THE PATIENT'S ROOM TO DISCUSS DISCHARGE PLANNING. CM CONSULT ORDER HAD BEEN RECEIVED 05/09/18. SHE HAD THREE VISITORS AT THE BEDSIDE. SHE REQUESTED THE CM TO RETURN LATER. PLAN- REVISIT PER PATIENT'S REQUEST. Coverage Notice Reviewer: [id number] - Estefaniajohn Moreau Notice Issued Date-Time: 05/07/2018 15:48 Notice Type: Medicare Outpatient Observation Notice Notice Delivered To: Patient Relationship to Patient: Self Manager Dairy Name: Delivery Method: HAND - Hand Delivered Ashley Days: Prior Verbal Notification: Recipient Understood Notice: Yes Recipient Signature: Yes Med Rec Note Co-signed by Attending: Coverage Notice Comment: Reviewer: [id number] - Abhijit Quevedo Notice Issued Date-Time: 05/11/2018 15:40 Notice Type: Patient Choice Letter Notice Delivered To: Patient Relationship to Patient: Manager Dairy Name: Delivery Method: HAND - Hand Delivered Ashley Days: Prior Verbal Notification: Recipient Understood Notice: Yes Recipient Signature: Yes Med Rec Note Co-signed by Attending: Coverage Notice Comment: [facility] Reviewer: [id number] - Abhijit Quevedo Notice Issued Date-Time: 05/11/2018 15:40 Notice Type: IM Discharge Notice Notice Delivered To: Patient Relationship to Patient: Manager Dairy Name: Delivery Method: HAND - Hand Delivered Ashley Days: Prior Verbal Notification: Recipient Understood Notice: Yes Recipient Signature: Yes Med Rec Note Co-signed by Attending: Coverage Notice Comment: Last DP export: 05/11/18 4:04 pm Patient Name: JESS REYES Page [phone] at 1711 All edits/amendments must be made on the electronic document DICTATION DATE: 05/11/181709 TECHNICAL OPERATIONS VICE PRESIDENT: IGNACIA 05/11/181709 RPT#: [id number] DC DATE: STATUS: ADM IN [facility] [address] [place] [address] END OF REPORT
[2018-05-11 17:18] LABS: APPEARANCE HAZY (CLEAR); BILIRUBIN NEGATIVE (NEGATIVE); COLOR YELLOW (YELLOW); GLUCOSE NEGATIVE (NEGATIVE); KETONE NEGATIVE (NEGATIVE); NITRITE NEGATIVE (NEGATIVE); PROTEIN 1+ mg/dL (NEGATIVE); UROBILINOGEN NORMAL (NORMAL)
--- NOTE | 2018-05-11 17:19 | NUR ---
DIRECTOR OF MATH NOTIFIED ME THAT PT TEMP IS 99.9. REASSES TEMP. TEMP CURRETNLY 99.6. NO MEDS GIVEN ATB THIS TIME. PLACED COOL TOWEL ON PT FOREHEAD. FAMILY AT BEDSIDE. WILL CTM.
[2018-05-11 17:21] LABS: BACTERIA MANY /hpf (NONE SEEN); EPITHELIAL CELLS 0-5 /hpf (0-5); RED CELLS - URINE OCC /hpf (0-5); WHITE CELLS - URINE >50 /hpf (0-5)
--- NOTE | 2018-05-11 19:12 | NUR ---
URINE SAMPLE COLLECTED FROM PT PER PROVIDERS ORDER. PT CURRENTLY RESTING IN BED. FAMILY AT BEDSIDE. DEMETRIO TAVARES.
--- NOTE | 2018-05-11 19:30 | NUR ---
RECEIVED REPORT, WILL ASSUME CARE OF PT, DENIES ANY NEEDS AT THIS TIME, BED IS LOW, SRX2 CALL LIGHT IN REACH, WILL CONTINUE PLAN OF CARE
[2018-05-12 05:05] VITALS: BP 136/52
[2018-05-12 06:05] LABS: BASOPHILS 0.1 % (0-2); EOSINOPHILS 0.2 % (0-7); HEMATOCRIT 25.2 % (36.0-48.0); HEMOGLOBIN 8.2 g/dL (12-16); IMMATURE GRANULOCYTES 0.2 % (0-5); LYMPHOCYTES 16.2 % (15-50); MCH 28.4 pg (26.0-34.0); MCHC 32.5 g/dL (31.0-37.0); MCV 87.2 fL (80.0-100.0); MEAN PLATELET VOLUME 9.8 fL (7.4-10.4); MONOCYTES 8.7 % (2-11); NEUTROPHILS 74.6 % (40-80); PLATELET COUNT 250 10x3/uL (130-400); RBC 2.89 10x6/uL (4.00-5.40); RDW 14.8 % (11.5-14.5); WBC 9.7 10x3/uL (4.8-10.8)
[2018-05-12 06:19] LABS: ANION GAP 15.9 mmol/L (8-16); CALCIUM 8.2 mg/dL (8.5-10.1); CARBON DIOXIDE 22.2 mmol/L (21.0-32.0); CREATININE - SERUM 4.8 mg/dL (0.6-1.3); POTASSIUM - SERUM 4.1 mmol/L (3.5-5.1)
--- NOTE | 2018-05-12 07:00 | NUR ---
RECEIVED REPORT. ASSUMED CARE OF PATIENT. CALL LIGHT WITHIN REACH. RESTING WITH EYES CLOSED. EASILY AROUSED. BATTERIES CHANGED IN ARSON AND BOMB INVESTIGATOR AT THIS TIME. TELEMETRY PATENT, SR WITH OCCASIONAL PVC, RATE 92. PATIENT DENIES NEEDS AT THIS TIME. STATES SHE IS SLEEPY. NO DISTRESS.
[2018-05-12 09:17] VITALS: BP 130/50
--- NOTE | 2018-05-12 09:22 | NUR ---
SPEAKING WITH PATIENT ABOUT HER PLAN OF CARE AND BEING DISCHARGED HOME, TRYING TO ANSWER QUESTIONS FOR PATIENT. PATIENT KEEPS REPEATING HERSELF STATING THAT THE DOCTORS ARE NOT GIVING HER A PLAN, I REINFORCED WE DO HAVE A PLAN FOR HER AND THIS SPECIAL EDUCATION INSTRUCTOR JUST EXPLAINED THE PLAN. DISCHARGE PLAN AGAIN DISCUSSED WITH PATIENT.PATIENT IS IRRITATED AND WANTS TO GO HOME.
[2018-05-12 10:18] VITALS: Ht 160 cm; Wt 66.0 kg
--- NOTE | 2018-05-12 10:59 | NUR ---
CONSULT FOR LEVAQUIN DOSING PT IS AN ELDERLY WOMAN WITH A SCR OF 4.8 AND A CRCL <10 WILL START HER ON LEVAQUIN 250MG PO Q48H, FOR 10 DAYS.
--- NOTE | 2018-05-12 11:17 | NUR ---
RESTING WELL. EASILY AROUSED. DISCUSSED WITH PATIENT NEW INJECTIONS THAT WILL START TOMORROW AND WHY WE ARE STARTING ORAL LEVAQUIN. VERBALIZED UNDERSTANDING. NO DISTRESS. CALL LIGHT WITHIN REACH. PATIENT SLEEPY.
--- NOTE | 2018-05-12 12:24 | MORECARE ---
CASE MANAGEMENT DISCHARGE SUMMARY PATIENT: JESS REYES UNIT: [id number] ADM DATE: 05/09/18 AGE: 78 : 40 SEX: F ROOM/BED: D.2107 AUTHOR: ANGELA,DOC PHYSICIAN: REFERRING PHYSICIAN: ALLIE FIGUEROA MD DATE OF SERVICE: 05/12/18 Discharge Plan Patient Name: JESS REYES Facility: [facility]:[place] : 1940 Planned Disposition: Home with Home Health Anticipated Discharge Date: 05/12/18 Discharge Date: Expected LOS: 3 Initial Reviewer: [id number] Initial Review Date: 05/06/2018 Generated: 05/12/18 1:24 pm Comments DCP- Discharge Planning Updated by [email or web address]: Abhijit Quevedo on 05/11/18 4:[address] Patient Name: JESS REYES Encounter No: [id number] : 1940 Primary Insurance: [employer] CHOICE PPO MCR ADVANT Anticipated DC Date: 05-12-2018 Planned Disposition: Home with Home Health External Planned Provider: [facility] DCP follow-up note: CM SPOKE TO PT IN ROOM TO DISCUSS DISCHARGE PLANNING AND NEEDS. CM STILL WAITING ON INSURANCE DETERMINATION FOR INPATIENT REHAB, STILL NO OCCUPATIONAL THERAPY EVAULATION. CM DISCUSSED A SECOND OPTION WITH PT IN EVENT INPATIENT REHAB IS DECLINED BY THE FACILITY OR INSURANCE COMPANY. CM DISCUSSED AVAILABILITY OF CUSTODIAL REHAB AND HOME HEALTH. PT STATES THAT IF INPATIENT DOES NOT ACCEPT, PT WILL BE GOING HOME AND WILL ACCEPT HOME HEALTH. CM PROVIDED LIST OF HOME HEALTH PROVIDERS, PT CALLED HER FRIEND TO ASSIST WITH CHOOSING HOME HEALTH AGENCY, PT'S FRIEND DIRECTED PT TO [facility] [address]. CM SPOKE TO BETHEL OF [facility] [address], WHO INFORMED PT THAT MOST OF THEIR CLIENTS USE [facility] BUT THEY ARE NOT RECOMMENDING ANY SPECIFIC AGENCY. PT REPORTS UNDERSTANDING. BETHEL OFFERED TO HAVE AAA FUSE MAKER MEET WITH PT IN THE HOME AFTER DISCHARGE TO ASSESS FOR HOME CARE NEEDS AND POSSIBLE MEDICAID SCREENING. PT ACCEPTED OFFER. CM PROVIDED PT'S NAME AND PHONE NUMBER TO BETHEL AT PT'S REQUEST. PT SIGNED CHOICE FOR [facility]. PT DENIES FURHTER NEEDS. CM CALLED [facility] [phone], SPOKE TO [facility] WHO WILL ACCEPT PT AND CAN ADMIT FOR HOME HEALTH ON FRIDAY. CM FAXED HOME HEALTH REFERRAL TO [facility] AT [phone]. TO COMPLETE HOME HEALTH ARRANGEMENTS WITH [facility] AND IF PHYSICIAN AGREES, CM WILL NEED HOME HEALTH ORDER FOR OBSERVATION AND ASSESSMENT WELL PHYSICAL THERAPY. CM TO FAX DISCHARGE INFORMATION TO [facility] WITH ORDER AT [phone]. [facility] [address], , TO CONTACT PT AND PERFORM HOME ASSESSMENT FOR POSSIBLE SERVICES AFTER PT GETS HOME. Abhijit Quevedo, CASE MANAGEMENT DCP- Discharge Planning Updated by [id number]: Mary Weber on 05/10/18 1:[address] REVISIT FOR DISCHARGE PLANNING. VISITOR AT THE BEDSIDE. PATIENT ASK CM TO RETURN IN A FEW MINUTES. ON RETURN PATIENT STATES SHE WANTS INPATIENT REHAB. SHE HAS DISCUSSED THIS WITH MD ON HIS ROUNDS. SHE STATES SHE IS TOO WEAK TO GO HOME. SHE LIVES ALONE. FEELS SAFE IN HER HOME BUT TO WEAK TO TAKE CARE OF HERSELF OR PREPARE MEALS. SHE IS NOT RECEIVING ANY COMMUNITY OR HOME HEALTH SERVICES. SHE WOULD LIKE MEALS ON WHEELS AND A EMERGENCY CALL SYSTEM AT DISCHARGE. CONFUCIANIST MEMEBERS AT THE DOOR. CM TO RETURN. PHYSICAL THERAPY AND OT EVAL PENDING. REHAB PRESCREENING HAS BEEN ORDERED. DCP- Discharge Planning Updated by [id number]: Mary Weber on 05/10/18 10:[address] 1130 CM WENT TO THE PATIENT'S ROOM TO DISCUSS DISCHARGE PLANNING. CM CONSULT ORDER HAD BEEN RECEIVED 05/09/18. SHE HAD THREE VISITORS AT THE BEDSIDE. SHE REQUESTED THE CM TO RETURN LATER. PLAN- REVISIT PER PATIENT'S REQUEST. Coverage Notice Reviewer: [id number] - Estefania Fremont Notice Issued Date-Time: 05/07/2018 15:48 Notice Type: Medicare Outpatient Observation Notice Notice Delivered To: Patient Relationship to Patient: Self Paint Technician Name: Delivery Method: HAND - Hand Delivered Ashley Days: Prior Verbal Notification: Recipient Understood Notice: Yes Recipient Signature: Yes Med Rec Note Co-signed by Attending: Coverage Notice Comment: Reviewer: [id number] - Abhijit Quevedo Notice Issued Date-Time: 05/11/2018 15:40 Notice Type: IM Discharge Notice Notice Delivered To: Patient Relationship to Patient: Paint Technician Name: Delivery Method: HAND - Hand Delivered Ashley Days: Prior Verbal Notification: Recipient Understood Notice: Yes Recipient Signature: Yes Med Rec Note Co-signed by Attending: Coverage Notice Comment: Reviewer: [id number] - Abhijit Quevedo Notice Issued Date-Time: 05/11/2018 15:40 Notice Type: Patient Choice Letter Notice Delivered To: Patient Relationship to Patient: Paint Technician Name: Delivery Method: HAND - Hand Delivered Ashley Days: Prior Verbal Notification: Recipient Understood Notice: Yes Recipient Signature: Yes Med Rec Note Co-signed by Attending: Coverage Notice Comment: [facility] Last DP export: 05/11/18 4:10 pm Patient Name: JESS REYES Page [phone] at 1224 All edits/amendments must be made on the electronic document DICTATION DATE: 05/12/18 1223 MEAT STUFFER: IGNACIA 05/12/18 1223 RPT#: [id number] DC DATE: STATUS: ADM IN [facility] [address] [place] [address] END OF REPORT
[2018-05-12 12:27] VITALS: BP 132/50
--- NOTE | 2018-05-12 12:48 | MORECARE ---
CASE MANAGEMENT DISCHARGE SUMMARY PATIENT: JESS REYES UNIT: [id number] ADM DATE: 05/09/18 AGE: 78 : 40 SEX: F ROOM/BED: D.210 AUTHOR: ANGELA,DOC PHYSICIAN: REFERRING PHYSICIAN: ALLIE FIGUEROA MD DATE OF SERVICE: 05/12/18 Discharge Plan Patient Name: JESS REYES Facility: [facility]:[place] : 1940 Planned Disposition: Home with Home Health Anticipated Discharge Date: 05/12/18 Discharge Date: Expected LOS: 3 Initial Reviewer: [id number] Initial Review Date: 05/06/2018 Generated: 05/12/18 1:47 pm Comments DCP- Discharge Planning Updated by [id number]: Abhijit Quevedo on 05/12/18 11:[address] Patient Name: JESS REYES Encounter No: [id number] : 1940 Primary Insurance: [employer] CHOICE PPO MCR ADVANT Anticipated DC Date: 05-12-2018 Planned Disposition: Home with Home Health External Planned Provider: [facility] DCP follow-up note: CM RECEIVED HOME HEALTH ORDER, MET WITH PT IN ROOM WHO REPORTS PLAN TO GO HOME ALONE AND WITH HOME HEALTH. PT'S PRIMARY CARE DOCTOR IS DR. DOMINGO AT [facility]. CM CALLED RANDAL AT [facility], , INFORMED OF PLANNED DISCHARGE HOME TODAY. PT ON SCHEDULE FOR HOME HEALTH ADMIT ON 05-14-18. CM FAXED REFERRAL UPDATE WITH ORDER TO [facility], . FOR DISCHARGE HOME, FAX DISCHARGE INFORMATION TO [facility] AT [phone]. NOTIFY [facility] AT [phone]. Abhijit Quevedo, CASE MANAGEMENT DCP- Discharge Planning Updated by [id number]: Abhijit Quevedo on 05/11/18 4:[address] Patient Name: JESS REYES Encounter No: [id number] : 1940 Primary Insurance: [employer] CHOICE PPO MCR ADVANT Anticipated DC Date: 05-12-2018 Planned Disposition: Home with Home Health External Planned Provider: [facility] DCP follow-up note: CM SPOKE TO PT IN ROOM TO DISCUSS DISCHARGE PLANNING AND NEEDS. CM STILL WAITING ON INSURANCE DETERMINATION FOR INPATIENT REHAB, STILL NO OCCUPATIONAL THERAPY EVAULATION. CM DISCUSSED A SECOND OPTION WITH PT IN EVENT INPATIENT REHAB IS DECLINED BY THE FACILITY OR INSURANCE COMPANY. CM DISCUSSED AVAILABILITY OF LONG TERM REHAB AND HOME HEALTH. PT STATES THAT IF INPATIENT DOES NOT ACCEPT, PT WILL BE GOING HOME AND WILL ACCEPT HOME HEALTH. CM PROVIDED LIST OF HOME HEALTH PROVIDERS, PT CALLED HER FRIEND TO ASSIST WITH CHOOSING HOME HEALTH AGENCY, PT'S FRIEND DIRECTED PT TO [facility] ON [address]. CM SPOKE TO BETHEL OF [facility] [address] [facility], WHO INFORMED PT THAT MOST OF THEIR CLIENTS USE [facility] BUT THEY ARE NOT RECOMMENDING ANY SPECIFIC AGENCY. PT REPORTS UNDERSTANDING. BETHEL OFFERED TO HAVE AAA GRAVITY PROSPECTING OPERATOR HELPER MEET WITH PT IN THE HOME AFTER DISCHARGE TO ASSESS FOR HOME CARE NEEDS AND POSSIBLE MEDICAID SCREENING. PT ACCEPTED OFFER. CM PROVIDED PT'S NAME AND PHONE NUMBER TO BETHEL AT PT'S REQUEST. PT SIGNED CHOICE FOR [facility]. PT DENIES FURHTER NEEDS. CM CALLED [facility] [phone], SPOKE TO [facility] WHO WILL ACCEPT PT AND CAN ADMIT FOR HOME HEALTH ON FRIDAY. CM FAXED HOME HEALTH REFERRAL TO [facility] AT [phone]. TO COMPLETE HOME HEALTH ARRANGEMENTS WITH [facility] AND IF PHYSICIAN AGREES, CM WILL NEED HOME HEALTH ORDER FOR OBSERVATION AND ASSESSMENT WELL PHYSICAL THERAPY. CM TO FAX DISCHARGE INFORMATION TO [facility] WITH ORDER AT [phone]. [facility], , TO CONTACT PT AND PERFORM HOME ASSESSMENT FOR POSSIBLE SERVICES AFTER PT GETS HOME. Abhijit Quevedo, CASE MANAGEMENT DCP- Discharge Planning Updated by [id number]: Mary Weber on 05/10/18 1:[address] REVISIT FOR DISCHARGE PLANNING. VISITOR AT THE BEDSIDE. PATIENT ASK CM TO RETURN IN A FEW MINUTES. ON RETURN PATIENT STATES SHE WANTS INPATIENT REHAB. SHE HAS DISCUSSED THIS WITH MD ON HIS ROUNDS. SHE STATES SHE IS TOO WEAK TO GO HOME. SHE LIVES ALONE. FEELS SAFE IN HER HOME BUT TO WEAK TO TAKE CARE OF HERSELF OR PREPARE MEALS. SHE IS NOT RECEIVING ANY COMMUNITY OR HOME HEALTH SERVICES. SHE WOULD LIKE MEALS ON WHEELS AND A EMERGENCY CALL SYSTEM AT DISCHARGE. EPISCOPAL MEMEBERS AT THE DOOR. CM TO RETURN. PHYSICAL THERAPY AND OT EVAL PENDING. REHAB PRESCREENING HAS BEEN ORDERED. DCP- Discharge Planning Updated by [id number]: Mary Weber on 05/10/18 10:[address] 1130 CM WENT TO THE PATIENT'S ROOM TO DISCUSS DISCHARGE PLANNING. CM CONSULT ORDER HAD BEEN RECEIVED 05/09/18. SHE HAD THREE VISITORS AT THE BEDSIDE. SHE REQUESTED THE CM TO RETURN LATER. PLAN- REVISIT PER PATIENT'S REQUEST. Coverage Notice Reviewer: [id number] Jovany Moreau Notice Issued Date-Time: 05/07/2018 15:48 Notice Type: Medicare Outpatient Observation Notice Notice Delivered To: Patient Relationship to Patient: Self [facility] Name: Delivery Method: HAND - Hand Delivered Ashley Days: Prior Verbal Notification: Recipient Understood Notice: Yes Recipient Signature: Yes Med Rec Note Co-signed by Attending: Coverage Notice Comment: Reviewer: [id number] Quevedo Notice Issued Date-Time: 05/11/2018 15:40 Notice Type: Patient Choice Letter Notice Delivered To: Patient Relationship to Patient: [facility] Name: Delivery Method: HAND - Hand Delivered Ashley Days: Prior Verbal Notification: Recipient Understood Notice: Yes Recipient Signature: Yes Med Rec Note Co-signed by Attending: Coverage Notice Comment: [facility] Reviewer: [id number] Jovany Quevedo Notice Issued Date-Time: 05/11/2018 15:40 Notice Type: IM Discharge Notice Notice Delivered To: Patient Relationship to Patient: [facility] Name: Delivery Method: HAND - Hand Delivered Ashley Days: Prior Verbal Notification: Recipient Understood Notice: Yes Recipient Signature: Yes Med Rec Note Co-signed by Attending: Coverage Notice Comment: Last DP export: 05/12/18 11:24 am Patient Name: JESS REYES Page [phone] at 1248 All edits/amendments must be made on the electronic document DICTATION DATE: 05/12/181246 DRY PAN FEEDER: IGNACIA 05/12/181246 RPT#: [id number] DC DATE: STATUS: ADM IN [facility] [address] [place] [address] END OF REPORT
--- NOTE | 2018-05-12 13:57 | NUR ---
PER GRANDDAUGHTER UMBERTO'S REQUEST, FORESTER AIDE GIVEN TO PATIENT TO KEEP HER CELL PHONE IN, TIED AROUND HER NECK SO SHE WILL ALWAYS HAVE HER CELL PHONE WITH HER UNTIL SHE CAN GET THE PATIENT LIFEALERT SET UP AT HOME.
--- NOTE | 2018-05-12 15:36 | NUR ---
PATIENT OOB AMBULATING IN ROOM. PATIENT TAKING A SPONGE BATH. PATIENT NOTED TO AMBULATE WITHOUT ASSISTANCE. NO DISTRESS. OFF TELEMETRY AT THIS TIME.
--- NOTE | 2018-05-12 18:15 | NUR ---
PATIENT IN SHOWER AT THIS TIME WITH ASSISTANCE FROM TECH. NO DISTRESS. COMPLETE LINEN CHANGE PROVIDED TO BED.
--- NOTE | 2018-05-12 19:46 | NUR ---
PATIENT SITTING IN CHAIR BESIDE BED. PATIENT IS ALERT. NO DISTRESS NOTED. PATIENT DENIES NEEDS.
[2018-05-12 20:00] VITALS: BP 103/75
--- NOTE | 2018-05-12 23:00 | NUR ---
PATIENT SITTING IN CHAIR, EYES CLOSED, CHEST RISING AND FALLING. NO DISTRESS NOTED AT THIS TIME.
[2018-05-13] VITALS: BP 118/60
--- NOTE | 2018-05-13 00:56 | NUR ---
PATIENT LAYING IN BED, NO COMPLAINTS AT THIS TIME. NO DISTRESS NOTED.
--- NOTE | 2018-05-13 02:24 | NUR ---
I have reviewed this patient and I concur with the Shift Assessment completed by the Licensed Practical Nurse today this shift. SR 73
--- NOTE | 2018-05-13 02:31 | NUR ---
PATIENT LAYING IN BED, EYES CLOSED, CHEST RISING AND FALLING. NO DISTRESS NOTED.
[2018-05-13 04:00] VITALS: BP 144/67
[2018-05-13 05:42] LABS: BASOPHILS 0.1 % (0-2); EOSINOPHILS 0.2 % (0-7); HEMATOCRIT 24.1 % (36.0-48.0); HEMOGLOBIN 7.9 g/dL (12-16); IMMATURE GRANULOCYTES 0.5 % (0-5); LYMPHOCYTES 16.3 % (15-50); MCH 28.3 pg (26.0-34.0); MCHC 32.8 g/dL (31.0-37.0); MCV 86.4 fL (80.0-100.0); MEAN PLATELET VOLUME 9.5 fL (7.4-10.4); MONOCYTES 9.2 % (2-11); NEUTROPHILS 73.7 % (40-80); PLATELET COUNT 257 10x3/uL (130-400); RBC 2.79 10x6/uL (4.00-5.40); RDW 14.6 % (11.5-14.5); WBC 8.3 10x3/uL (4.8-10.8)
[2018-05-13 06:02] LABS: ANION GAP 15.7 mmol/L (8-16); CALCIUM 8.1 mg/dL (8.5-10.1); CARBON DIOXIDE 22.2 mmol/L (21.0-32.0); CREATININE - SERUM 4.9 mg/dL (0.6-1.3); POTASSIUM - SERUM 3.9 mmol/L (3.5-5.1)
--- NOTE | 2018-05-13 08:23 | NUR ---
PT STATES SHE IS ALLERGIC TO MILK AND KEEPS TELLING HER NURSES HOWEVER NO ALLERGY HAS BEEN PLACED FOR IT AND I WASNT TOLD IN REPORT. WILL PLACE ALLERGY AND CALL DIETARY NOW.
[2018-05-13] MEDS ORDERED: LEVOFLOXACIN500 MG PO (12:14)
[2018-05-13 13:01] VITALS: BP 132/58
--- NOTE | 2018-05-13 13:25 | NUR ---
PT IS TO RECIEVE 1 UNIT OF BLOOD PRIOR TO DISCHARGE. BLOOD IS NOW READY AND PICKED UP. DOUBLE WITNESSED AND VERIFIED. VSS AND BEING MONITER PER POLICY. WILL REMAIN AT BEDSIDE FOR FIRST 15MINS OF TRANSFUSION TO MONITER FOR ANY REACTION. CURRENTLY INFUSING VIA L.FA PIV WITH NO S/S OF IRRITATION OR ISSUES NOTED. PT RESTING QUIETLY IN BED. DENIES ANY CURRENT PAIN OR NEEDS AT THIS TIME. WILL CTM.
[2018-05-13 13:26] VITALS: BP 125/61
--- NOTE | 2018-05-13 13:58 | NUR ---
NO REACTION OR ISSUES NOTED AFTER FIRST 15MINS OF TRANSFUSION. PT RESTING QUIETLY IN BED VISITING WITH FAMILY AT BEDSIDE. VSS. WILL CTM.
--- NOTE | 2018-05-13 15:10 | NUR ---
BLOOD STILL INFUSING AND NO ISSUES NOTED. VSS. PT DENIES ANY CURRENT PAIN OR NEEDS AT THIS TIME. PT SITTING UP IN BED TALKING ON THE PHONE. WILL CTM.
[2018-05-13 15:14] LABS: UPE RAND - ALBUMIN 54.3 % (()); UPE RAND - ALPHA 1 GLOBULIN 8.2 % (()); UPE RAND - ALPHA 2 GLOBULIN 11.1 % (()); UPE RAND - BETA GLOBULIN 12.5 % (())
--- NOTE | 2018-05-13 15:40 | NUR ---
PTS BLOOD NOW COMPLETED FROM TRANSFUSING AND PIV ALSO INFILTRATED. D/C L.FA PIV WITH CATHETER TIP FULLY INTACT. PT VISITING WITH A FRIEND AT BEDSIDE AND DENIES ANY CURRENT PAIN OR NEEDS. POST VITAL SIGNS STABLE. WILL GO OVER DISCHARGE TEACHING AND CPOC.
--- NOTE | 2018-05-13 17:49 | NUR ---
PT FINALLY READY FOR ME TO GO OVER DISCHARGE PLANNING. DISCHARGE TEACHING PROVIDED AND PAPERS SIGNED. PT VERBALIZED UNDERSTANDING AND ALL QUESTIONS ANSWERED. PT HAS VISITOR AT BEDSIDE ASSISTING HER WITH COLLECTING HER BELONGINGS AND GETTING DRESSED. D/C TELEMETRY AND RETURNED TO [facility] [place]. NO FURTHER NEEDS. WILL ESCORT PT DOWN WHEN SHE IS COMPLETELY READY.
--- NOTE | 2018-05-13 19:53 | NUR ---
PTS FRIEND HERE TO PICK HER UP. ALL BELONGINGS COLLECTED. ESCORTED PT OUT VIA W/C. NO FURTHER NEEDS.
--- NOTE | 2018-05-14 17:59 | MORECARE ---
CASE MANAGEMENT DISCHARGE SUMMARY PATIENT: JESS REYES UNIT: [id number] ADM DATE: 05/09/18 AGE: 78 : 40 SEX: F ROOM/BED: D.210 AUTHOR: ANGELA,DOC PHYSICIAN: REFERRING PHYSICIAN: ALLIE FIGUEROA MD DATE OF SERVICE: 05/14/18 Discharge Plan Patient Name: JESS REYES Facility: [facility]:[place] : 1940 Planned Disposition: Home with Home Health Anticipated Discharge Date: 05/12/18 Discharge Date: 05/13/2018 Expected LOS: 3 Initial Reviewer: [email or web address] Initial Review Date: 05/06/2018 Generated: 05/14/18 6:58 pm DCP- Discharge Planning Updated by [id number]: Abhijit Quevedo on 05/12/18 11:[address] Patient Name: JESS REYES Encounter No: [id number] : 1940 Primary Insurance: [employer] PPO MCR ADVANT Anticipated DC Date: 05-12-2018 Planned Disposition: Home with Home Health External Planned Provider: [facility] DCP follow-up note: CM RECEIVED HOME HEALTH ORDER, MET WITH PT IN ROOM WHO REPORTS PLAN TO GO HOME ALONE AND WITH HOME HEALTH. PT'S PRIMARY CARE DOCTOR IS DR. DOMINGO AT [facility]. CM CALLED RANDAL AT [facility], , INFORMED OF PLANNED DISCHARGE HOME TODAY. PT ON SCHEDULE FOR HOME HEALTH ADMIT ON 05-14-18. CM FAXED REFERRAL UPDATE WITH ORDER TO [facility], . FOR DISCHARGE HOME, FAX DISCHARGE INFORMATION TO [facility] AT [phone]. NOTIFY [facility] AT [phone]. Abhijit Quevedo, CASE SHAHIDA DCP- Discharge Planning Updated by [id number]: Abhijit Quevedo on 05/11/18 4:[address] Patient Name: JESS REYES Encounter No: [id number] : 1940 Primary Insurance: [employer] CHOICE PPO MCR ADVANT Anticipated DC Date: 05-12-2018 Planned Disposition: Home with Home Health External Planned Provider: [facility] DCP follow-up note: CM SPOKE TO PT IN ROOM TO DISCUSS DISCHARGE PLANNING AND NEEDS. CM STILL WAITING ON INSURANCE DETERMINATION FOR INPATIENT REHAB, STILL NO OCCUPATIONAL THERAPY EVAULATION. CM DISCUSSED A SECOND OPTION WITH PT IN EVENT INPATIENT REHAB IS DECLINED BY THE FACILITY OR INSURANCE COMPANY. CM DISCUSSED AVAILABILITY OF DETENTION REHAB AND HOME HEALTH. PT STATES THAT IF INPATIENT DOES NOT ACCEPT, PT WILL BE GOING HOME AND WILL ACCEPT HOME HEALTH. CM PROVIDED LIST OF HOME HEALTH PROVIDERS, PT CALLED HER FRIEND TO ASSIST WITH CHOOSING HOME HEALTH AGENCY, PT'S FRIEND DIRECTED PT TO [facility] [address]. CM SPOKE TO BETHEL OF [facility], WHO INFORMED PT THAT MOST OF THEIR CLIENTS USE [facility] BUT THEY ARE NOT RECOMMENDING ANY SPECIFIC AGENCY. PT REPORTS UNDERSTANDING. BETHEL OFFERED TO HAVE AAA INTERMEDIATE PROJECT MANAGER MEET WITH PT IN THE HOME AFTER DISCHARGE TO ASSESS FOR HOME CARE NEEDS AND POSSIBLE MEDICAID SCREENING. PT ACCEPTED OFFER. CM PROVIDED PT'S NAME AND PHONE NUMBER TO BETHEL AT PT'S REQUEST. PT SIGNED CHOICE FOR [facility]. PT DENIES FURHTER NEEDS. CM CALLED [facility] [phone], SPOKE TO RANDAL WHO WILL ACCEPT PT AND CAN ADMIT FOR HOME HEALTH ON FRIDAY. CM FAXED HOME HEALTH REFERRAL TO [facility] AT [phone]. TO COMPLETE HOME HEALTH ARRANGEMENTS WITH [facility] AND IF PHYSICIAN AGREES, CM WILL NEED HOME HEALTH ORDER FOR OBSERVATION AND ASSESSMENT WELL PHYSICAL THERAPY. CM TO FAX DISCHARGE INFORMATION TO [facility] WITH ORDER AT [phone]. [facility], , TO CONTACT PT AND PERFORM HOME ASSESSMENT FOR POSSIBLE SERVICES AFTER PT GETS HOME. Abhijit Quevedo, CASE MANAGEMENT DCP- Discharge Planning Updated by [id number]: Mary Weber on 05/10/18 1:[address] REVISIT FOR DISCHARGE PLANNING. VISITOR AT THE BEDSIDE. PATIENT ASK CM TO RETURN IN A FEW MINUTES. ON RETURN PATIENT STATES SHE WANTS INPATIENT REHAB. SHE HAS DISCUSSED THIS WITH MD ON HIS ROUNDS. SHE STATES SHE IS TOO WEAK TO GO HOME. SHE LIVES ALONE. FEELS SAFE IN HER HOME BUT TO WEAK TO TAKE CARE OF HERSELF OR PREPARE MEALS. SHE IS NOT RECEIVING ANY COMMUNITY OR HOME HEALTH SERVICES. SHE WOULD LIKE MEALS ON WHEELS AND A EMERGENCY CALL SYSTEM AT DISCHARGE. [employer] AT THE DOOR. CM TO RETURN. PHYSICAL THERAPY AND OT EVAL PENDING. REHAB PRESCREENING HAS BEEN ORDERED. DCP- Discharge Planning Updated by [id number]: Mary Weber on 05/10/18 10:[address] 1130 CM WENT TO THE PATIENT'S ROOM TO DISCUSS DISCHARGE PLANNING. CM CONSULT ORDER HAD BEEN RECEIVED 05/09/18. SHE HAD THREE VISITORS AT THE BEDSIDE. SHE REQUESTED THE CM TO RETURN LATER. PLAN- REVISIT PER PATIENT'S REQUEST. Coverage Notice Reviewer: [email or web address] Jovany Moreau Notice Issued Date-Time: 05/07/2018 15:48 Notice Type: Medicare Outpatient Observation Notice Notice Delivered To: Patient Relationship to Patient: Self Heel Scourer Name: Delivery Method: HAND - Hand Delivered Ashley Days: Prior Verbal Notification: Recipient Understood Notice: Yes Recipient Signature: Yes Med Rec Note Co-signed by Attending: Coverage Notice Comment: Reviewer: [email or web address] Quevedo Notice Issued Date-Time: 05/11/2018 15:40 Notice Type: IM Discharge Notice Notice Delivered To: Patient Relationship to Patient: Heel Scourer Name: Delivery Method: HAND - Hand Delivered Ashley Days: Prior Verbal Notification: Recipient Understood Notice: Yes Recipient Signature: Yes Med Rec Note Co-signed by Attending: Coverage Notice Comment: Reviewer: [id number] Quevedo Notice Issued Date-Time: 05/11/2018 15:40 Notice Type: Patient Choice Letter Notice Delivered To: Patient Relationship to Patient: Heel Scourer Name: Delivery Method: HAND - Hand Delivered Ashley Days: Prior Verbal Notification: Recipient Understood Notice: Yes Recipient Signature: Yes Med Rec Note Co-signed by Attending: Coverage Notice Comment: [facility] Last DP export: 05/12/18 11:47 am Patient Name: JESS REYES Page [id number] at 1759 All edits/amendments must be made on the electronic document DICTATION DATE: 05/14/181757 ACCURACY EXPERT: IGNACIA 05/14/181757 RPT#: [id number] DC DATE:05/13/18 STATUS: DIS IN [facility] [address] [place] [address] END OF REPORT
== END 2018-05-13 19:56 | disposition home health service (06) | DRG 683 ==
LOC: D.ER 10:34 → EDBD 10:34 → D.ER 12:21 → OBSVTIME 12:26 → D.M2 12:26
PROVIDERS: Emergency Medicine; Family Medicine; Internal Medicine Nephrology; ADMIT Internal Medicine Nephrology; ATTEND Internal Medicine Nephrology
DX: I12.9 Hypertensive chronic kidney disease with stage 1 through stage 4 chronic kidney disease, or unspecified chronic kidney disease (principal); N18.4 Chronic kidney disease, stage 4 (severe); N17.9 Acute kidney failure, unspecified; N25.81 Secondary hyperparathyroidism of renal origin; D50.9 Iron deficiency anemia, unspecified

== ENCOUNTER 2019-08-13 08:54 | Inpatient (IN) | payer MEDICARE ==
[~2019-08-13] VITALS: Ht 160 cm; Wt 60.6 kg
--- NOTE | ~2019-08-13 | HEMODYNAMI ---
PATIENT:JESS REYES MEDICAL RECORD: [id number] : 40 LOCATION:[facility] D.2110 ADMISSION DATE: 08/13/19 Generatedon:08/18/20199:46 Patient name: JESS REYES Patient #: [id number] SSN: : 1940 Date of study: 08/17/2019 Page: Of Hemodynamic Procedure Report Patient Data Patient Demographics Procedure consent was obtained First Name: JESS Gender: Female Last Name: ERIC : 1940 Patient #: [id number] Age: 79 year(s) Race: Black Additional ID: [id number] Contact details Address: [address] [place] [address] State: [place] City: [place] Zip code: [address] Past Medical History History of disease Date Diagnosis Comments 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 Allergies Allergen Reaction Date Comments Reported Iodine 08/17/2019 Other allergy 08/17/2019 MILK Admission Admission Data Admission Date: 08/13/2019 Admission Time: 11:45 Room #: D.2110 Insurance Payor: Medicare Height (in.): 62.99 BSA: 1.7 (m2) Height (cm.): 160 BMI: 26.17 (kg/m2) Weight (lbs.): 147.71 Weight (kg.): 67 Medications upon Admission Medications Dosage Times Administered Last Remarks per Delivery Day Date and Time Beta Gwendolyn (any) JAMES Inhibitor (any) Lab Results Lab Result Date: 08/17/2019 Lab Result Time: 0:00 Biochemistry Name Units Result Min Max Creatinine mg/dl 5.7 --(----)-* 0.6 1.3 eGFR ml/min 9 *-(----)-- 90 120 AM eGFR ml/min 7.175877 *-(----)-- 90 120 NONAFRICAN CBC Name Units Result Min Max Hematocrit % 28.9 *-(----)-- 42 54 Hemoglobin g/dl 9.2 *-(----)-- 13.5 17.5 Procedure Procedure Types Cath Procedure Diagnostic Procedure [facility] w/Coronaries Sedation Charges Moderate Sedation up to 45 minutes PCI Procedure Coronary Stent Coronary Stent Initial Coronary Stent Initial x2 Hemochron ACT Test Procedure Description Procedure Date Procedure Date: 08/17/2019 Procedure Start Time: 15:54 Procedure End Time: 16:47 Procedure Staff Name Function Jeannette Velez RN Nurse Jarek Baez MD Performing Physician Emperatriz Kelly RT Scrub Veronica Salcedo RN Nurse Laron Paniagua RT Monitor Procedure Data Cath Procedure Fluoroscopy Diagnostic fluoroscopy Total fluoroscopy Time: time: 11.3 min 11.3 min Diagnostic fluoroscopy Total fluoroscopy dose: dose: 1574 mGy 1574 mGy Contrast Material Contrast Material Type Amount (ml) Isovue 370 197 Entry Location Entry Primary Successful Side Size Upsize Upsize Entry Closure Succes sful Closure Location (Fr) 1 (Fr) 2 (Fr) Remarks Device Remarks Femoral Right 5 Fr 6 Fr 6 Fr Exoseal artery Short Long Estimated blood loss: 10 ml Diagnostic catheters Device Type Used For End Catheter Placement MULTIPACK JL 4.0 5Fr Procedure catheter MULTIPACK 3DRC 5Fr Procedure catheter MULTIPACK Pigtail 5 Fr Procedure catheter Procedure Complications No complications Procedure Medications Medication Administration Route Dosage 0.9% NaCl I.V. Oxygen etCO2 Nasal cannula 2 l/min Lidocaine 2% added to field 20 Heparin Flush Bag added to field 2 bags (1000units/500ml NS) Versed I.V. 1 mg Fentanyl I.V. 50 mcg Heparin Bolus I.V. 4000 units Versed I.V. 1 mg Fentanyl I.V. 50 mcg Integrilin (Bolus I.V. 6.2 ml 2mg/ml) Heparin Bolus I.V. 2000 units Plavix P.O. 600 mg Hemodynamics Rest BSA: 1.7 (m2) HGB: 9.2 (g/dl) O2 Consumption: Estimated: 156.69 (ml/min) O2 Cons umption indexed: Estimated:92.17 (ml/min/m) Heart Rate: 75 (bpm) Pressure Samples Time Site Value (mmHg) Purpose Heart Use Rate(bpm) 16:01 LV 86/-2,4 Snapshot 75 Snapshots Pre Cath Intra NCS Post Cath Vital Signs Time Heart Resp SPO2 etCO2 NIBP (mmHg) Rhythm Pain Sedation Rate (ipm) (%) (mmHg) Status Level (bpm) 15:44:20 77 19 97 38 155/68(120) NSR 0 (11) 10(A) , No pain 15:48:44 75 11 97 40.4 157/73(128) NSR 0 (11) 10(A) , No pain 15:53:06 69 15 99 38.9 158/77(133) NSR 0 (11) 10(A) , No pain 15:57:30 75 15 96 41.1 141/71(111) NSR 0 (11) 10(A) , No pain 16:01:48 75 14 96 44.8 145/64(108) NSR 0 (11) 10(A) , No pain 16:06:11 76 13 98 43.3 146/65(102) NSR 0 (11) 9(A) , No pain 16:10:31 74 12 99 6.7 150/68(117) NSR 0 (11) 9(A) , No pain 16:14:47 76 11 98 46.4 123/65(101) NSR 0 (11) 9(A) , No pain 16:19:01 74 12 98 32.2 141/64(109) NSR 0 (11) 9(A) , No pain 16:23:23 77 13 99 38.9 141/62(107) NSR 0 (11) 9(A) , No pain 16:27:39 76 12 100 23.1 138/67(105) NSR 0 (11) 9(A) , No pain 16:31:57 75 12 100 14.2 145/68(112) NSR 0 (11) 9(A) , No pain 16:36:17 71 13 100 42.6 140/67(115) NSR 0 (11) 9(A) , No pain 16:40:39 77 13 100 44.1 149/64(105) NSR 0 (11) 9(A) , No pain 16:44:59 72 13 100 41.1 140/66(115) NSR 0 (11) 10(A) , No pain 16:49:17 75 15 100 24.6 138/69(104) NSR 0 (11) 10(A) , No pain 16:53:31 84 6 99 38.9 144/72(101) NSR 0 (11) 10(A) , No pain Medications Time Medication Route Dose Verified Delivered Reason Notes Effectiveness by by 15:45:48 0.9% NaCl I.V. kvo Jarek Machado used for ml/hr St Jabier Velez RN procedure 15:45:56 Oxygen etCO2 2 Jarek Veronica used for Nasal l/min Ngozi Matias procedure cannula MD GRIGGS 15:46:01 Lidocaine 2% added 20ml Jarek Tilley for local to vial [facility] anesthetic field MD JONES 15:46:07 Heparin Flush added 2 Jarek Jarek used for Bag to bags [facility] procedure (1000units/500ml field MD JONES NS) 15:54:49 Versed I.V. 1 mg Jarek Machado for sedation St Jabier Velez RN, MD 15:54:54 Fentanyl I.V. 50 Jarek Jeanie for sedation mcg St Jabier Velez RN, MD 16:00:16 Versed I.V. 1 mg Jarek Machado for sedation St Jabier Velez RN, MD 16:00:19 Fentanyl I.V. 50 Jarek Machado for sedation mcg St Jabier Velez RN, MD 16:04:11 Heparin Bolus I.V. 4000 Jarek Machado for verif ied units St Jabier Velez RN anticoagulation with dr MD wells 16:09:33 Integrilin I.V. 6.2 Jarek Machado for waste d (Bolus 2mg/ml) ml St Jabier Velez RN antiplatelet 3.8 ml MD therapy of vial 16:36:55 Heparin Bolus I.V. 2000 Jarek Machado for verif ied units St Jabier Velez RN anticoagulation with dr MD wells 16:48:31 Plavix P.O. 600 Jarek Machado for mg St Jabier Velez RN antiplatelet therapy Procedure Log Time Note 15::37 Informed consent obtained and on chart 15:28:20 Patient allergic to Iodine 15:28:33 Patient allergic to Other allergyMILK 15:28:43 Patient Height : 62.99 inches 15:28:48 Patient Weight : 147.71 lbs 15:29:38 Insurance Payor : Medicare 15:30:36 Lab Result : Hemoglobin 9.2 g/dl 15:30:36 Lab Result : Hematocrit 28.9 % 15:30:36 Lab Result : eGFR NONAFRICAN 7.290677 ml/min 15:30:36 Lab Result : Creatinine 5.7 mg/dl 15:30:36 Lab Result : eGFR AM 9 ml/min 15:30:41 Diagnostic Cath Status : Urgent 15:31:13 Laron Paniagua RT(R) sent for patient. Start room use. 15:31:17 Time tracking: Regular hours (M-F 7:00 - 5:00) 15:31:21 Plan of Care:Hemodynamics will remain stable., Cardiac rhythm will evelina in stable., Comfort level will be maintained., Respiratory function will remain adequate., Patient/ family verbilizes understanding of procedure., Procedure tolerated without complication., Recovers from procedure without complications.. 15:31:26 Full Disclosure recording started 15:31:32 H&P Date Dictated: 08/17/2019 Within 30 days and on chart.. 15:31:37 Is the patient allergic to Iodine/contrast media? Yes. 15:31:38 Was the patient premedicated? Yes 15:35:01 Is patient on blood thinner?No 15:35:04 Patient diabetic? No. 15:35:24 Patient received from Med II to [facility] 2 Alert and oriented. Tansferred to table in Supine position. 15:35:27 Correct patient and procedure confirmed by team. 15:35:27 Warm blankets applied, and hyacinth hugger turned on for patient comfort. 15:35:28 ECG and BP/O2 sat monitors applied to patient. 15:35:31 Pre-op teaching completed and patient verbalized understanding. 15:35:31 Pre-procedure instructions explained to patient. 15:35:36 Family in waiting room. 15:35:37 Patient NPO since Midnight. 15:35:41 If diabetic: On Metformin? N/A 15:35:52 ACC The patient was administered the following blood thiners within the last 24 hours: None 15:36:07 Risk of Mortality: 3.3 15:36:09 Risk of blood transfusion: 18.8 15:36:12 Risk of TALHA: 16.7 15:36:18 Stress Test: no; N/A ? 15:36:20 Lab results completed and on chart. 15:36:40 ACC Patient presents with Non-STEMI CCS Anginal Class 1--Ordinary p hysical activity does not cause angina, angina occurs with strenuos, rapid, or prolonged activity.. 15:36:44 ACCPatient has been prescribed/administered the following anti-sonali nal medication within the last 2 weeks: None 15:41:29 Snore? Unknown 15:41:31 Sleep apnea? No 15:41:36 Dentures? No ? 15:41:39 Patient pain scale 0/10 .. 15:41:45 IV patent on arrival in left forearm with 0.9% NaCl at KVO. 15:41:51 Right groin area was prepped with chlora-prep and draped in sterile fas hion 15:41:52 Sharps counted by scrub and verified by R.N. 15:41:54 Physician paged 15:42:28 Use device set Femoral Dx 15:42:30 ACIST Syringe (75033) opened to sterile field. 15:42:31 Medline Cath Pack ([id number]) opened to sterile field. 15:42:31 Bag Decanter (2002S) opened to sterile field. 15:42:33 ACIST Manifold (86851) opened to sterile field. 15:42:33 ACIST Hand Control (53976) opened to sterile field. 15:42:34 DIAGNOSTIC Multipack 5Fr catheter set (GN7471) opened to sterile field. 15:42:36 SHEATH 5FR Hyden (CLQ134) opened to sterile field. 15:42:37 EMERALD Guide Wire (116-187) opened to sterile field. 15:43:10 Vital chart was started 15:45:48 0.9% NaCl kvo ml/hr I.V. was administered by Jeannette Velez RN; used for procedure; Verbal order read back and verified. 15:45:56 Oxygen 2 l/min etCO2 Nasal cannula was administered by Veronica Salcedo RN ; used for procedure; Verbal order read back and verified. 15:46:01 Lidocaine 2% 20ml vial added to field was administered by Jarek Maxwell MD; for local anesthetic; Verbal order read back and verified. 15:46:07 Heparin Flush Bag (1000units/500ml NS) 2 bags added to field was admini stered by Jarek Baez MD; used for procedure; Verbal order read back and verified. 15:52:38 --------ALL STOP TIME OUT------ 15:52:39 Final Timeout: patient, procedure, and site verified with staff and mayte cisse. All members of the team are in agreement. 15:52:45 Right groin site verified by team. 15:52:48 Fire Safety Assessment: A--An alcohol-based skin anteseptic being used preoperatively., C--Open oxygen or nitrous oxide is being used., D--An ESU, laser, or fiber-optic light is being used. 15:52:55 Physical assessment completed. ASA score P 2 - A patient with mild syst emic disease as per Jarek Baez MD. 15:53:00 5) <15 or on dialysis Very severe, or end stage kidney failure. 15:53:03 Maximum allowable contrast dose (3.7 X eGFR X 0.75)25 ml. 15:53:08 Sedation plan: IV Moderate Sedation Medication:Versed, Fentanyl 15:53:12 Procedure started. 15:54:49 Versed 1 mg I.V. was administered by Jeannette Velez RN; for sedation; Verb al order read back and verified. 15:54:50 Local anesthetic to right femoral artery with Lidocaine 2% by Jarek Eugene MD.INITIAL ACCESS ONLY 15:54:54 Fentanyl 50 mcg I.V. was administered by Jeannette Velez RN; for sedation; Verbal order read back and verified. 15:55:04 A 5 Fr sheath was inserted into the Right Femoral artery 15:55:38 A MULTIPACK JL 4.0 5Fr catheter was advanced over the wire and used for Procedure. 15:56:47 LCA angiography performed. 15:56:50 Injector settings: Ml/sec: 3, Volume: 6, 15:57:50 Catheter removed. 15:57:56 A MULTIPACK 3DRC 5Fr catheter was advanced over the wire and used for Procedure. 15:58:31 RCA angiography performed. 15:58:35 Injector settings: Ml/sec: 3, Volume: 6, 16:00:04 ACCDominant side:Right 16:00:11 Catheter removed. 16:00:16 Versed 1 mg I.V. was administered by Jeannette Velez RN; for sedation; Verb al order read back and verified. 16:00:19 Fentanyl 50 mcg I.V. was administered by Jeannette Velez RN; for sedation; Verbal order read back and verified. 16:01:16 A MULTIPACK Pigtail 5 Fr catheter was advanced over the wire and used f or Procedure. 16:01:19 LV gram done using BASURTO 16::40 Injector settings: Ml/sec: 10, Volume: 20, 16:01:41 LV hemodynamics recorded. 16:02:03 EF : 55 % 16:02:06 Catheter removed. 16:02:07 Proceeding to intervention. 16:02:14 Use device set NGOZI PCI 16:02:18 SHEATH 6FR Hyden (IQJ137) opened to sterile field. 16:02:20 INFLATOR Merit BasixCompak (RY3885) opened to sterile field. 16:02:23 WHISPER 300cm guide wire ([id number]) opened to sterile field. 16::33 GUIDE 6FR HS I catheter (LA6HSI) opened to sterile field. 16:03:07 Sheath upsized to a 6 Fr Short. 16:03:07 -ADVANC ED 16:04:11 Heparin Bolus 4000 units I.V. was administered by Jeannette Velez RN; for anticoagulation; verified with dr wells Verbal order read back and verified. 16:05:24 Guide catheter removed. 16:06:10 SHEATH 6FR Destination (RSR01) opened to sterile field. 16:06:18 SHORT SHEATH EXCHANGED FOR LONG SHEATH. 16:09:15 Sheath upsized to a 6 Fr Long. 16::29 GUIDE 6FR HS I catheter (LA6HSI) opened to sterile field. 16::33 Integrilin (Bolus 2mg/ml) 6.2 ml I.V. was administered by Jeannette Sanon N; for antiplatelet therapy; wasted 3.8 ml of vial Verbal order read back and verified. 16:09:33 NEW HS 1 OPENED TO STERILE FIELD. 16:09:41 6 Fr HS 1 guide catheter was inserted over the wire 16:10:19 Pre PCI Site: [place] RCA has 90% stenosis. 16:11:34 WHISPER 300 wire advanced. 16:12:55 Inflate balloon Inflation number: 1 A EMERGE OTW 3.0 x 15 balloon ([id number]) was prepped and advanced across the Dist RCA , then inflated to 10 JAI for 0:17 (min:sec) . 16:14:04 Inflation number: 1 The EMERGE OTW 3.0 x 15 balloon ([id number]) was reinflated across the Mid RCA , to 10 JAI for 0:20 (min:sec) . 16:14:46 Inflation number: 1 The EMERGE OTW 3.0 x 15 balloon ([id number]) was reinflated across the Prox RCA , to 10 JAI for 0:15 (min:sec) . 16:15:39 Balloon removed over the wire. 16:18:46 Place stent Inflation Number: 1 A INTEGRITY RX 3.0 x 15 stent ([id number]) was prepped and advanced across the Dist RCA1 . The stent was deployed at 14 JAI for 0:00 (min:sec) . 16:19:38 Stent catheter was removed intact over wire. 16:23:11 Place stent Inflation Number: 1 A INTEGRITY RX 3.0 x 26 stent ([id number]) was prepped and advanced across the Mid RCA1 . The stent was deployed at 14 JAI for 0:00 (min:sec) . 16:23:53 Stent catheter was removed intact over wire. 16:26:57 Place stent Inflation Number: 2 A INTEGRITY RX 3.0 x 15 stent ([id number]) was prepped and advanced across the Prox RCA . The stent was deployed at 14 JAI for 0:00 (min:sec) . 16:27:58 Inflation number: 3 The stent balloon was then re-inflated across the P shal[place] RCA to 18 JAI for 0:00 (min:sec) . 16:29:20 GUIDE 6FR XBLAD 3.5 catheter ([id number]) opened to sterile field. 16:29:45 WHISPER 300cm guide wire ([id number]) opened to sterile field. 16:30:45 6 Fr XBLAD 3.5 guide catheter was inserted over the wire 16:32:56 Pre PCI Site: [place] pLAD has 90% stenosis. 16:33:15 WHISPER 300 wire advanced. 16:35:10 Wire advanced across lesion. 16:36:55 Heparin Bolus 2000 units I.V. was administered by Jeannette Velez RN; for anticoagulation; verified with dr wells Verbal order read back and verified. 16:37:04 Place stent Inflation Number: 1 A INTEGRITY RX 3.5 x 26 stent ([id number]) was prepped and advanced across the Prox LAD 90. The stent was deployed at 14 JAI for 0:00 (min:sec) . 16:39:14 Stent catheter was removed intact over wire. 16:40:26 Place stent Inflation Number: 4 A INTEGRITY OTW 3.5 X 12 stent ([id number]) was prepped and advanced across the Prox RCA . The stent was deployed at 16 JAI for 0:00 (min:sec) . 16:41:07 Stent catheter was removed intact over wire. 16:41:08 Wire removed. 16:41:09 Guide catheter removed. 16:41:14 EXOSEAL 6Fr (EX600) opened to sterile field. 16:41:36 Fluoroscopy time 11.30 minutes. 16:41:43 Fluoroscopy dose: 1574 mGy 16:41:43 Flurop Dose total: 1574 16:42:13 Dose Area Product 26420 mGy/cm. 16:42:36 LONG 6FR SHEATH EXCHANGED FOR 6FR SHORT SHEATH. 16:43:23 Sheath removed intact; hemostasis achieved with Exoseal to the Right Fe moral artery. 16:43:27 Procedure ended.(Physican Out) 16:43:49 Contrast amount:Isovue 370 197ml. 16:43:51 Maximum allowable dose exceeded? Yes. 16:43:53 Sharps counted by scrub and verified by R.N. 16:43:58 Post-op/insertion site Right Femoral artery dressed using a 4 x 4 and Tegaderm. 16:44:04 Post right femoral artery:stable, soft, clean and dry 16:44:05 Post Procedure Pulses reassessed and unchanged 16:44:09 Post procedure: right dorsailis pedis pulse 2+ Normal; easily identifia ble; not easily obliterated. 16:44:11 Post-procedure physical assessment completed. ASA score P 2 - A patient with mild systemic disease as per Jraek Baez MD. 16:44:14 Post procedure rhythm: unchanged. 16:44:18 Estimated blood loss: 10 ml 16:44:43 Post procedure instruction explained to patient.Patient verbalizes understanding. 16:44:45 Patient needs reinforcement of post procedure teaching. 16:45:06 Procedure type changed to Cath procedure, Diagnostic procedure, LHC, C w/Coronaries, Sedation Charges, Moderate Sedation up to 45 minutes, PCI procedure, Coronary Stent, Coronary Stent Initial, Coronary Stent Initial x2, Hemochron ACT Test 16:46:28 Procedure and supply charges have been captured, reviewed, submitted an d are correct. 16:46:31 Procedure Complication : No complications 16:46:34 [facility] Findings: MVD- PCI performed (see procedure note) 16:46:37 Operative report dictated upon procedure completion. 16:46:38 See physician's report for complete and final results. 16:46:40 Report given to [facility]. 16:46:43 Patient transfered to [facility] with Bed. 16:47:20 ACC-PCI Only Patient was given prescriptions, or instructed by Kelton Baez MD to start/continue the following medications upon discharge: Plavix 16:47:27 Full Disclosure recording stopped 16:47:27 Procedure ended. 16:48:31 Plavix 600 mg P.O. was administered by Jeannette Velez RN; for antiplatelet therapy; Verbal order read back and verified. 16:49:58 ACT drawn and resulted at 309 seconds. (normal therapeutic range 180-24 0 seconds). 16:55:24 Femstop placed over the right femoral artery at 155 mmHg. Hemostasis ac hieved. 16:56:32 Vital chart was stopped 16:56:39 End room use (Document Last) 16:56:55 End room use (Document Last) 16:57:17 End room use (Document Last) 9:45:18 LATE ENTRY. NOTE @16:40 DOCUMENTED-STENT WAS PLACED IN THE LAD. NOT RCA -LARON PANIAGUA Intervention Summary Intervention Notes Time ActionType Lesion and Equipment Action# Pressure Duration Attributes Used 16:12:55 Inflate Dist RCA EMERGE OTW 1 10 00:17 balloon 3.0 x 15 balloon ([id number]) 16:14:04 Reinflate Mid RCA EMERGE OTW 1 10 00:20 balloon 3.0 x 15 balloon ([id number]) 16:14:46 Reinflate Prox RCA EMERGE OTW 1 10 00:15 balloon 3.0 x 15 balloon ([id number]) 16:18:46 Place stent Dist RCA1 INTEGRITY RX 1 14 00:00 3.0 x 15 stent ([id number]) 16:23:11 Place stent Mid RCA1 INTEGRITY RX 1 14 00:00 3.0 x 26 stent ([id number]) 16:26:57 Place stent Prox RCA INTEGRITY RX 2 14 00:00 3.0 x 15 stent ([id number]) 16:27:58 Reinflate Prox RCA INTEGRITY RX 3 18 00:00 stent 3.0 x 15 balloon stent ([id number]) 16:37:04 Place stent Prox LAD INTEGRITY RX 1 14 00:00 3.5 x 26 stent ([id number]) 16:40:26 Place stent Prox RCA INTEGRITY 4 16 00:00 OTW 3.5 X 12 stent ([id number]) Device Usage Item Name Manufacture Quantity Catalog Number Hospital Part Current Min imal Lot# / Charge Number Stock Stock Serial# Code ACIST Acist 1 81512 992846 076587 009720 20 Syringe Medical (96226) Systems Inc Bag Decanter Microtek 1 2001S 842390 56774 468634 5 (2001S) Medical Inc. Medline Cath Medline 1 [id number] 981810 14290 623374 5 Pack ([id number]) ACIST Hand Acist 1 88780 211385 397394 964875 5 Control Medical (71042) Systems Inc ACIST Acist 1 19936 400335 918388 907512 5 Manifold Medical (32630) Systems Inc DIAGNOSTIC Cardinal 1 VV7561 564774 41164 744650 30 Multipack Dream home renovations 5Fr catheter set (UE5842) SHEATH 5FR Terumo 1 DQZ619 206687 591207 147125 5 Hyden (VND833) EMERALD Cardinal 1 502-455 891295 116418 697926 5 Guide Wire Health (502455) MULTIPACK JL Cardinal 1 650382 5 4.0 5Fr Health catheter MULTIPACK Cardinal 1 365633 5 3DRC 5Fr Health catheter MULTIPACK Cardinal 1 231527 5 Pigtail 5 Fr Health catheter SHEATH 6FR Terumo 1 EZO908 031429 008583 796499 40 Hyden (PTI678) INFLATOR Merit 1 FF0155 541065 258699 696615 15 [facility] Medical BasixCompak (OQ1046) WHISPER Friedman 2 [id number] 825977 590529 453062 5 300cm guide Vascular wire (5869477UE) GUIDE 6FR HS Medtronic 2 LA6HSI 426380 39987 847111 1 I catheter (LA6HSI) SHEATH 6FR Terumo 1 RSR01 628044 57021 319338 5 Destination (RSR01) EMERGE OTW [place] 1 [id number] 373961 902245 511404 5 [id number] 3.0 x 15 Scientific balloon ([id number]) INTEGRITY RX Medtronic 2 [id number] 364352 576482 457105 5 [id number] 3.0 x 15 [id number] stent ([id number]) INTEGRITY RX Medtronic 1 [id number] 979206 982485 898621 5 [id number] 3.0 x 26 stent ([id number]) GUIDE 6FR Cardinal 1 [id number] 627381 732014 433763 10 XBLAD 3.5 Health catheter (62271895) INTEGRITY RX Medtronic 1 [id number] 824033 655394 962524 5 [id number] 3.5 x 26 stent ([id number]) INTEGRITY Medtronic 1 [id number] 895586 599085 683400 8 [id number] OTW 3.5 X 12 stent ([id number]) EXOSEAL 6Fr Cardinal 1 EX600 468160 319930 008254 10 (EX600) Health Signature Audit [place] Stage Time Signature Unsigned Intra-Procedure 08/17/2019 Laron Paniagua 4:56:55 PM RT(R) Intra-Procedure 08/17/2019 Jeannette Velez RN 4:57:17 PM Intra-Procedure 08/17/2019 Jarek Baez MD 4:57:37 PM Jabier JONES 08/18/2019 9:43:19 AM Intra-Procedure 08/18/2019 Laron Paniagua 9:46:02 AM RT(R) Intra-Procedure 08/18/2019 Jarek Mckeon 9:46:34 AM Jabier JONES Signatures Nurse : Jeannette Velez RN Signature : Date : Time : Performing Physician : Jarek Signature : Ngozi MD Date : Time : Nurse : Veronica Matias RN Signature : Date : Time : Monitor : Laron Young RT Signature : Date : Time : [facility] [address] [place], [place] [address] [address]
[~2019-08-13 08:54] MED LIST changes: +CARDURA4 MG PO; +LEVOFLOXACIN500 MG PO; +LISINOPRIL20 MG PO
--- NOTE | 2019-08-13 09:27 | NUR ---
AMBULATORY TO THE RESTROOM AND BACK INDEPENDENTLY.
[2019-08-13 09:28] VITALS: BP 174/73
[2019-08-13 10:08] LABS: BASOPHILS 0.3 % (0-2); EOSINOPHILS 1.6 % (0-7); HEMATOCRIT 19.9 % (36.0-48.0); HEMOGLOBIN 6.3 g/dL (12-16); IMMATURE GRANULOCYTES 0.2 % (0-5); LYMPHOCYTES 27.1 % (15-50); MCH 29.7 pg (26.0-34.0); MCHC 31.7 g/dL (31.0-37.0); MCV 93.9 fL (80.0-100.0); MEAN PLATELET VOLUME 8.6 fL (7.4-10.4); MONOCYTES 3.3 % (2-11); NEUTROPHILS 67.5 % (40-80); PLATELET COUNT 268 10x3/uL (130-400); RBC 2.12 10x6/uL (4.00-5.40); RDW 14.6 % (11.5-14.5); WBC 6.5 10x3/uL (4.8-10.8)
[2019-08-13 10:10] VITALS: BP 188/83
--- NOTE | 2019-08-13 10:10 | NUR ---
CRITICAL LABS REPORTED TO ABHI GRIGGS AND DR HENRIQUEZ
[2019-08-13 10:20] LABS: CALC OSMOLALITY 305 mosm/kg (275-300); CALCIUM 7.9 mg/dL (8.5-10.1); CARBON DIOXIDE 20.1 mmol/L (21.0-32.0); CHLORIDE - SERUM 109 mmol/L (98-107); CREATININE - SERUM 6.4 mg/dL (0.6-1.3); GLUCOSE 101 mg/dL (74-106); POTASSIUM - SERUM 4.7 mmol/L (3.5-5.1); SODIUM 142 mmol/L (136-145); UREA NITROGEN 77 mg/dL (7-18); eGFR NON AFRICAN AMERICAN 7 mL/min (90-120)
[2019-08-13 10:31] LABS: APTT 26.4 SECONDS (22.8-39.4); INR 1.14 (0.85-1.17); PROTIME 14.5 SECONDS (11.6-15.0)
[2019-08-13 10:36] LABS: ALBUMIN 3.3 g/dL (3.4-5.0); ALKALINE PHOSPHATASE 61 U/L (30-120); ALT (SGPT) 11 U/L (10-68); CKMB 1.1 U/L (0.0-3.6); CREATINE KINASE 103 UL (21-215); MAGNESIUM - SERUM 1.6 mg/dL (1.8-2.4); PROTEIN - SERUM 6.7 g/dL (6.4-8.2); TROPONIN-I 0.028 ng/mL (0.000-0.060)
--- NOTE | 2019-08-13 10:45 | NUR ---
PT AMBULATORY TO THE RESTROOM AGAIN AT THIS TIME, ON RETURN TO ROOM THE PATIENT REPORTS CHEST PRESSURE THAT WAS RELIEVED WITH REST.
[2019-08-13 11:13] LABS: BACTERIA FEW /hpf (NEGATIVE); BILIRUBIN NEGATIVE (NEGATIVE); EPITHELIAL CELLS OCC /hpf (0-5); GLUCOSE NEGATIVE (NEGATIVE); KETONE NEGATIVE (NEGATIVE); NITRITE NEGATIVE (NEGATIVE); RED CELLS - URINE OCC /hpf (0-5); UROBILINOGEN NORMAL (NORMAL)
--- NOTE | 2019-08-13 12:00 | NUR ---
BLOOD TRANSFUSION STARTED, PLEASE SEE PAPER FLOWSHEET.
--- NOTE | 2019-08-13 12:05 | NUR ---
PT TO BEDSIDE COMMODE AND BACK INDEPENDENTLY, ON RETURN TO BED THE PATIENT C/O CHEST PRESSURE, OFFERED PRN MEDS, WILL ADMINISTER PRIOR TO TRANSPORT TO FLOOR.
--- NOTE | 2019-08-13 12:39 | NUR ---
PT TO ROOM FROM ER ON CART, ASSIST TO TRANSFER TO BED. PT WITH NAUSEA, DRY HEAVING. BLOOD INFUSING ON ARRIVAL. PT WEAK AND EXERTED EASILY.
[2019-08-13] MEDS ORDERED: LASIX40 MG PO (12:44)
[2019-08-13] MEDS ORDERED: COREG6.25 MG PO (12:46)
[2019-08-13] MEDS ORDERED: FERROUS SULFAT325 MG PO (12:47)
[2019-08-13] MEDS ORDERED: PROTONIX40 MG PO (12:48)
[2019-08-13] MEDS ORDERED: ADALAT CC90 MG PO (12:50)
[2019-08-13] MEDS ORDERED: ACETAMINOPHEN500 M1 PO (12:52)
[2019-08-13 14:35] LABS: % SATURATION 25 % (15-55); IRON 43 ug/dl (35-150); TOTAL IRON BIND CAPACITY 169 ug/dl (260-445); UNSAT IRON BIND CAPACITY 126 ug/dl (150-375)
[2019-08-13 14:49] LABS: FERRITIN 585 ng/mL (3-244); LDH 216 U/L (81-234)
[2019-08-13 16:05] LABS: ERYTHROCYTE SEDIMENTATION RATE 53 mm/hr (0-30)
[2019-08-13 16:42] LABS: CKMB 2.4 U/L (0.0-3.6); CREATINE KINASE 89 UL (21-215)
[2019-08-13 16:44] LABS: TROPONIN-I 0.166 ng/mL (0.000-0.060)
--- NOTE | 2019-08-13 19:00 | NUR ---
RECEIVED BEDSIDE REPORT. PATIENT IS ALERT AND ORIENTED, RESTING COMFORTABLY IN BED. SECOND UNIT OF PRBC CONTINUE TO INFUSE. RESPIRATIONS ARE EVEN AND UNLABORED. NO S/S OF DISTRESS. NO S/S OF DSITRESS. NO C/OPAIN. CALL LIGHT WITHIN REACH. WILL CPOC.
[2019-08-13 19:45] VITALS: BP 198/91; BMI 25.3
[2019-08-13 20:00] VITALS: BP 169/81
--- NOTE | 2019-08-13 21:00 | NUR ---
SECOND UNIT OF PRBC COMPLETE. PATIENT IS ALERT AND ORIENTED, RESTING COMFORTABLY IN BED. CALL LIGHT WITHIN REACH. WILL CPOC.
[2019-08-13 22:15] LABS: CREATININE - URINE 70.5 mg/dL (30-125); PRO/CRE RATIO URINE 2.9 mg/g; PROTEIN - URINE 207.7 mg/dL (0.0-11.9)
[2019-08-13 22:45] LABS: CKMB 5.5 U/L (0.0-3.6); CREATINE KINASE 114 UL (21-215)
[2019-08-13 22:46] LABS: TROPONIN-I 1.328 ng/mL (0.000-0.060)
[2019-08-14 04:00] VITALS: BP 184/88
[2019-08-14 05:26] LABS: BASOPHILS 0.4 % (0-2); EOSINOPHILS 1.1 % (0-7); IMMATURE GRANULOCYTES 0.1 % (0-5); LYMPHOCYTES 24.2 % (15-50); MCH 27.9 pg (26.0-34.0); MCHC 30.9 g/dL (31.0-37.0); MEAN PLATELET VOLUME 8.9 fL (7.4-10.4); MONOCYTES 5.9 % (2-11); NEUTROPHILS 68.3 % (40-80); PLATELET COUNT 297 10x3/uL (130-400); RDW 17.9 % (11.5-14.5); WBC 8.5 10x3/uL (4.8-10.8)
[2019-08-14 05:27] LABS: HEMATOCRIT 26.2 % (36.0-48.0); HEMOGLOBIN 8.1 g/dL (12-16); MCV 90.3 fL (80.0-100.0)
[2019-08-14 05:59] LABS: ALBUMIN 2.9 g/dL (3.4-5.0); ANION GAP 16.5 mmol/L (8-16); BILIRUBIN - TOTAL 0.35 mg/dL (0.2-1.3); CALCIUM 7.9 mg/dL (8.5-10.1); CARBON DIOXIDE 20.5 mmol/L (21.0-32.0); CREATININE - SERUM 6.2 mg/dL (0.6-1.3); MAGNESIUM - SERUM 1.6 mg/dL (1.8-2.4); PHOSPHOROUS 4.8 mg/dL (2.5-4.9); PROTEIN - SERUM 6.6 g/dL (6.4-8.2); URIC ACID 8.5 mg/dL (2.6-7.2)
[2019-08-14 06:00] LABS: COMPLEMENT C4 22.1 mg/dL (17.4-52.2)
[2019-08-14 09:00] VITALS: BP 173/82
--- NOTE | 2019-08-14 09:00 | NUR ---
ALERT AND ORIENTED X3. IVF INFUSING TO RIGHT A/C WITH NO S/S OF INFECTION/INFILTRATION. PURWICK INTACT. MAGNESIUM REPLACED PER PROTOCOL. TELEMETRY INTACT. DENIES ANY PAIN OR DOSCOMFORT AT THIS TIME. ENCURAGED TO USE CALL LIGHT FOR ASSSIT.
[2019-08-14 15:00] VITALS: BP 169/84
--- NOTE | 2019-08-14 17:22 | NUR ---
PATIENT REFUSES WEARING SCD'S. STATES IT WOULD KEEP HER FROM GETTING HESELF UP AND GOING TO BATHROOM.ENCOURAGED TO USE CALL LIGHT FOR ASSSIT.
--- NOTE | 2019-08-14 19:30 | NUR ---
PT IN BED, AAO X 3, RESP EVEN AND UNLABORED. NO DISTRESS NOTED. CL IN REACH, SR UP X 2.
[2019-08-14 20:00] VITALS: BP 159/67
[2019-08-15 04:00] VITALS: BP 151/55
[2019-08-15 05:17] LABS: BASOPHILS 0.3 % (0-2); IMMATURE GRANULOCYTES 0.3 % (0-5); LYMPHOCYTES 25.1 % (15-50); MCH 28.2 pg (26.0-34.0); MCHC 30.8 g/dL (31.0-37.0); MCV 91.6 fL (80.0-100.0); MEAN PLATELET VOLUME 8.9 fL (7.4-10.4); MONOCYTES 5.8 % (2-11); NEUTROPHILS 66.5 % (40-80); PLATELET COUNT 249 10x3/uL (130-400); RBC 2.62 10x6/uL (4.00-5.40); RDW 17.7 % (11.5-14.5)
[2019-08-15 05:20] LABS: HEMOGLOBIN 7.4 g/dL (12-16)
[2019-08-15 05:53] LABS: ALBUMIN 2.5 g/dL (3.4-5.0); ANION GAP 15.5 mmol/L (8-16); BILIRUBIN - TOTAL 0.15 mg/dL (0.2-1.3); CALCIUM 7.3 mg/dL (8.5-10.1); CARBON DIOXIDE 18.6 mmol/L (21.0-32.0); MAGNESIUM - SERUM 1.6 mg/dL (1.8-2.4); POTASSIUM - SERUM 5.1 mmol/L (3.5-5.1); PROTEIN - SERUM 5.8 g/dL (6.4-8.2)
--- NOTE | 2019-08-15 06:13 | NUR ---
I have reviewed this patient and I concur with the Shift Assessment completed by the Licensed Practical Nurse today this shift.
--- NOTE | 2019-08-15 07:40 | NUR ---
PT LAYING SUPINE, RR EVEN AND UNLABORED. NO DISTRESS NOTED. CALL LIGHT WITHIN REACH. BED IN LOWEST POSITION. WILL CONTINUE TO MONITOR.
[2019-08-15 08:31] VITALS: BP 131/62
--- NOTE | 2019-08-15 11:26 | NUR ---
PRBCs INITIATED BY INDU CARVER. PRE TRANSFUSION VITALS STABLE (SEE TRANSFUSION SHEET). PT TOLERATING WELL SO FAR. WILL CONTINUE TO MONITOR.
--- NOTE | 2019-08-15 12:40 | MORECARE ---
CASE MANAGEMENT DISCHARGE SUMMARY PATIENT: JESS REYES UNIT: [id number] ADM DATE: 08/13/19 AGE: 79 : 40 SEX: F ROOM/BED: D.211 AUTHOR: SIGIFREDO MILLER PHYSICIAN: REFERRING PHYSICIAN: CAROL DENNIS MD DATE OF SERVICE: 08/15/19 Discharge Plan Patient Name: JESS REYES Facility: [facility]:[place] : 1940 Planned Disposition: Anticipated Discharge Date: Discharge Date: Expected LOS: Initial Reviewer: [email or web address] Initial Review Date: 08/13/2019 Generated: 08/15/19 1:39 pm Patient Name: JESS REYES Page [phone] at 1240 All edits/amendments must be made on the electronic document DICTATION DATE: 08/15/19 1240 LOOK OUT TOWER FIRE WATCHER: IGNACIA 08/15/19 1240 RPT#: [id number] DC DATE: STATUS: ADM IN [facility] [address] [place] [address] END OF REPORT
[2019-08-15 13:20] VITALS: BP 146/68
[2019-08-15 18:29] VITALS: BP 146/61
--- NOTE | 2019-08-15 20:40 | NUR ---
2ND UNIT PRBC COMPLETED WITH NO DISTESS NOTED. SL TO RFA INTACT WITHOUT REDNESS OR EDEMA NOTED. NO COMPLAITNS VOICED.CL IN REACH
[2019-08-16] VITALS (9 sets, daily range): BP systolic 110–204; BP diastolic 62–94; Ht 160 cm; Wt 60.6 kg
[2019-08-16 05:24] LABS: BASOPHILS 0.3 % (0-2); IMMATURE GRANULOCYTES 0.2 % (0-5); LYMPHOCYTES 23.8 % (15-50); MCH 28.9 pg (26.0-34.0); MCHC 31.8 g/dL (31.0-37.0); MCV 90.9 fL (80.0-100.0); MEAN PLATELET VOLUME 8.4 fL (7.4-10.4); MONOCYTES 6.3 % (2-11); NEUTROPHILS 67.4 % (40-80); PLATELET COUNT 202 10x3/uL (130-400); RDW 16.5 % (11.5-14.5); WBC 6.5 10x3/uL (4.8-10.8)
[2019-08-16 05:29] LABS: HEMATOCRIT 28.9 % (36.0-48.0); HEMOGLOBIN 9.2 g/dL (12-16); RBC 3.18 10x6/uL (4.00-5.40)
[2019-08-16 05:45] LABS: ALBUMIN 2.7 g/dL (3.4-5.0); ANION GAP 13.9 mmol/L (8-16); BILIRUBIN - TOTAL 0.29 mg/dL (0.2-1.3); CALCIUM 7.5 mg/dL (8.5-10.1); CARBON DIOXIDE 21.5 mmol/L (21.0-32.0); CREATININE - SERUM 5.7 mg/dL (0.6-1.3); MAGNESIUM - SERUM 1.4 mg/dL (1.8-2.4); POTASSIUM - SERUM 4.4 mmol/L (3.5-5.1)
--- NOTE | 2019-08-16 06:07 | NUR ---
I have reviewed this patient and I concur with the Shift Assessment completed by the Licensed Practical Nurse today this shift.
--- NOTE | 2019-08-16 07:50 | NUR ---
REPORT RECIEVED. PT SITTING SEMI FOWLERS IN BED. RR EVEN AND UNLABORED ON RA. SHE HAS A L FA PIV INFUSING SODIUMBICARB @ 125. BED LOCKED AND IN LOWEST POSITION, CALL LIGHT WITHIN REACH. WILL CTM
[2019-08-16 09:45] LABS: CHOL - HDL RATIO 3.1 ratio (2.3-4.1); LDL-HDL RATIO 1.8 ratio (1.5-3.5)
[2019-08-16 09:48] LABS: INR 1.06 (0.85-1.17); PROTIME 13.8 SECONDS (11.6-15.0)
[2019-08-16 09:49] LABS: APTT 38.3 SECONDS (22.8-39.4)
--- NOTE | 2019-08-16 11:22 | EC ---
PATIENT:JESS REYES DATE OF SERVICE: 08/13/19 SEX: F MEDICAL RECORD: [id number] DATE OF : 40 LOCATION:D.M2 D.211 AGE OF PATIENT: 79 ADMISSION DATE: 08/13/19 REFERRING PHYSICIAN: INTERPRETING PHYSICIAN: KENNETH MELVIN MD ECHOCARDIOGRAM REPORT ECHO CHARGES 4 ECHO COMPLETE Date: 08/14/19 CLINICAL DIAGNOSIS: NONSTEMI ECHOCARDIOGRAPHIC MEASUREMENTS (adult normal given) AC root (d.<3.7cm) 2.9 cm LV Septum d (<1.2 cm> 1.4 cm Valve Excursion 1.4 cm LV Septum (systole) 1.8 cm Left Atria (s.<4.0cm> 4.7 cm LVPW d(<1.2cm) 1.6 cm RV (d.<2.3cm) 4.6 cm LVPW (sytole) 2.0 cm LV diastole(<5.6CM) 6.5 cm MV E-F(>70mm/sec) cm LV systole 4.7 cm LVOT Diameter 1.5 cm MV exc.(>10mm) 1.7 cm Est.ejection fraction (50-75%) % DOPPLER: LVIT cm/sec A 96.0 cm/sec E 77.0 cm/sec LA cm/sec RVSP 37 mmHg LVOT 115 cm/sec AOP1/2T m/s Asc. Ao 164 cm/sec RVOT cm/sec RA cm/sec PA 122 cm/sec AV Gradient Peak 10.77mmHg AV Mean 5.78 mmHg AV Area 1.2 cm MV Gradient Peak 7.30 mmHg MV Mean 3.10 mmHg MV Area cm COMMENTS: Roofing Tile Sorter: 2 BLAIR UP Radio Electrician: 3 Dr. Murillo TAPE# PACS Pericardial Effusion N DATE OF SERVICE: Adequate 2D, color flow imaging, spectral Doppler, and M-Mode. LVH is present. LV internal dimension is normal. Wall motion is normal. EF is greater than or equal to 55%. Aortic valve is sclerosed without stenosis by Doppler interrogation. Left atrium dilated at 4.7 cm. Mitral valve shows no prolapse. Ynmv-es-dedfnrrc MR. Right-sided chambers are grossly normal. Mild TR. ECHOCARDIOGRAM REPORT [id number] JESS REYES TRANSINT:[id number] Voice Confirmation ID: [id number] DOCUMENT ID: [id number] KENNETH MELVIN MD at 1122 CC: [id number] DICTATION DATE: 08/15/19 1003 CSR TECHNICIAN: 08/15/19 1455 ADM IN [facility] [address] [place] [address]
--- NOTE | 2019-08-16 11:22 | CN ---
PATIENT NAME:JESS REYES MEDICAL RECORD: [id number] : 40 LOCATION:DRuth D.2109 ADMIT DATE: 08/13/19 ACCOUNT: [id number] CONSULTING PHYSICIAN: KENNETH MELVIN MD REFERRING PHYSICIAN: CAROL DENNIS MD DATE OF CONSULTATION: 08/14/2019 HISTORY OF PRESENT ILLNESS: A 79-year-old female with a history of chronic renal insufficiency, approaching dialysis, history of hypertension, chronic anemia, intermittent blood transfusion and being evaluated for erythropoietin admitted with chest pain, pressure, tightness consistent with acute coronary syndrome. At that point in time, she was found to have elevated cardiac enzymes as well as marked anemia with a hemoglobin below 7, symptomology covered nicely with a blood transfusion. We are asked to see her concerning her cardiovascular status. PAST MEDICAL HISTORY: 1. History of chronic renal insufficiency. 2. Anemia. 3. Hypertension. 4. Dyslipidemia. 5. Osteoarthritis. MEDICATIONS: Typically include Lasix 40 mg p.o. b.i.d., hydralazine 50 p.o. t.i.d., nifedipine 90 every day, carvedilol 6.25 every day, Cardura 4 mg b.i.d., and iron supplementation. ALLERGIES: IODINE. SOCIAL HISTORY: Nonsmoker, nondrinker. Easily takes care of all his ADLs. She does try to exercise on a routine basis. REVIEW OF SYSTEMS: The patient reports easy bruising but reports no swollen glands. The patient reports no fever, no night sweats, no significant weight gain, no significant weight loss. No significant exercise tolerance. The patient reports no dry eyes, no irritation, no vision change. Patient reports no difficulty hearing and no ear pain. Patient reports no frequent nose bleeds or nose and sinus problems. Patient reports on arm pain on exertion. No shortness of breath while lying down. No history of heart murmur. Patient reports no cough, no wheezing or coughing up blood. Patient reports no abdominal pain, no vomiting. Normal appetite. No diarrhea and not vomiting blood. No nausea and no constipation. Patient reports no incontinence. No difficulty urinating. No hematuria. No increased frequency. Patient reports no muscle aches. No weakness, no arthralgias, no back pain. No swelling of the extremities. Patient reports no abnormal mole, no jaundice, no rashes. Reports no loss of consciousness. No weakness and no numbness. No seizures, dizziness, or headaches. The patient reports no depression, no sleep disturbance, feeling safe in a relationship and no alcohol abuse. Patient reports on fatigue. Reports no runny nose or sinus pressure. No itching, no hives, and no frequent sneezing. PHYSICAL EXAMINATION: GENERAL: Pleasant gentleman in no acute dissection, appears stated age. VITAL SIGNS: Blood pressure 172/82 and pulse 77 and regular. HEENT: Normocephalic, atraumatic. CONSULT REPORT [id number] JESS REYES NECK: No bruits are noted. HEART: Regular, II/ systolic ejection murmur. LUNGS: Good air excursion. ABDOMEN: Soft, nontender. EXTREMITIES: Pulses 2+. No edema. IMPRESSION: Suspect a type 2 NSTEMI with a supply demand mismatch with hemoglobin below 7. We will check echocardiographic study. If symptoms recur despite improvement in anemia, we would need to consider diagnostic angiography, although obviously this would carry significant risks of progressing renal insufficiency to dialysis level with the contrast load additionally, we would need premedication given IODINE ALLERGY. TRANSINT:[id number] Voice Confirmation ID: [id number] DOCUMENT ID: [id number] KENNETH MELVIN MD at 1122 CC: [id number] DICTATION DATE: 08/14/19 1140 MAGAZINE KEEPER: 08/14/19 220 ADM IN [facility] [id number] [place] [address]
--- NOTE | 2019-08-16 12:10 | NUR ---
RECIEVED PT FROM PACU. BP 177/77. HOB AT 30 DEGRESS AND ICE PACK TO RIGHT CHEST. WILL CTM
--- NOTE | 2019-08-16 17:59 | NUR ---
I have reviewed this patient and I concur with the Shift Assessment completed by the Licensed Practical Nurse today this shift.
--- NOTE | 2019-08-16 18:14 | NUR ---
PT TAKIN TO DIALYSIS AT THIS TIME.
--- NOTE | 2019-08-16 22:09 | NUR ---
ASSIST WITH TRANSFER FROM [facility]. PT TOLERATED TRANSFER VIA HOSPITAL BED WELL. PT IS LARTHARGIC. DOES ANSWER QUESTIONS WITH YES OR NO BUT FALLS RIGHT BACK TO SLEEP. NO SIGNS OR SYMPTOMS OF DISTRESS NOTED. RESPIRATIONS EVEN AND UNLABORED. B/P 141/62 HR 71. PT HAS NO COMPLAINTS AT THIS TIME. DRESSING TO HEMOSPLIT AREA IS CLEAN DRY AND INTACT. ICE PACK PLACE ON HEMOSPLIT SITE. CALL LIGHT AND OTHER PERSONAL ITEMS WITH IN REACH. BED ALARM ON AND ACTIVE. BED IS LOCKED AND IN ITS LOWEST POSITION. SIDERAILS x2. WILL CONTINUE TO MONITOR
[2019-08-17] VITALS (13 sets, daily range): BP systolic 121–171; BP diastolic 57–89
--- NOTE | 2019-08-17 02:09 | NUR ---
PT WOKE UP WANTING TO GO TO THE RESTROOM. BED GEORGE PROVIDED. PT WAS UNAWARE OF WHERE SHE IS. EXPLAINED TO PT THAT SHE IS AT [facility]. PT STATES THAT SHE WAS SLEEPING GOOD. NO SIGNS OF DISTRESS NOTED. CALL LIGHT AND OTHEER PERSONAL ITEMS WITH IN REACH. WILL CONTINUE TO MONITOR
[2019-08-17 04:08] LABS: HEPATITIS C ANTIBODY 0.2 S/CO RAT (0.0-0.9)
[2019-08-17 05:37] LABS: BASOPHILS 0.3 % (0-2); HEMATOCRIT 30.1 % (36.0-48.0); HEMOGLOBIN 9.5 g/dL (12-16); IMMATURE GRANULOCYTES 0.3 % (0-5); LYMPHOCYTES 18.4 % (15-50); MCH 28.8 pg (26.0-34.0); MCHC 31.6 g/dL (31.0-37.0); MCV 91.2 fL (80.0-100.0); MEAN PLATELET VOLUME 9.2 fL (7.4-10.4); MONOCYTES 5.2 % (2-11); NEUTROPHILS 74.8 % (40-80); PLATELET COUNT 211 10x3/uL (130-400); RDW 16.3 % (11.5-14.5); WBC 7.7 10x3/uL (4.8-10.8)
--- NOTE | 2019-08-17 06:21 | NUR ---
I have reviewed this patient and I concur with the Shift Assessment completed by the Licensed Practical Nurse today this shift.
[2019-08-17 06:24] LABS: ALBUMIN 2.7 g/dL (3.4-5.0); BILIRUBIN - TOTAL 0.33 mg/dL (0.2-1.3); CALCIUM 7.7 mg/dL (8.5-10.1); MAGNESIUM - SERUM 1.6 mg/dL (1.8-2.4); PROTEIN - SERUM 6.2 g/dL (6.4-8.2)
--- NOTE | 2019-08-17 06:38 | NUR ---
CONSENTS SIGNED AND PLACED ON CHART. ICE PLACED TO HEMOSPLIT TO RIGHT CHEST, DRESSING CLEAN DRY AND INTACT. PT HAS NO COMPLAINTS AT THIS TIME. WILL CONTINUE TO MONITOR
--- NOTE | 2019-08-17 06:40 | NUR ---
HEAD OF BED ELEVATED TO 35 DEGREES. WILL CONTINUE TO MONITOR
[2019-08-17 06:42] LABS: ANION GAP 11.5 mmol/L (8-16); CARBON DIOXIDE 27.2 mmol/L (21.0-32.0); CREATININE - SERUM 3.7 mg/dL (0.6-1.3); POTASSIUM - SERUM 3.7 mmol/L (3.5-5.1); TROPONIN-I 1.374 ng/mL (0.000-0.060)
--- NOTE | 2019-08-17 07:47 | NUR ---
ALERT AND ORIENTED. LUNGS CLEAR BILATERALLY. HEART SOUNDS S1 AND S2 HEARD IN ALL VALLE. BOWEL SOUNDS ACTIVE X 4. IV TO LFA SL PATENT WITHOUT REDNESS. DENIES NEEDS. BED LOW. BED ALARM ON. CALL PARSONS AND PERSONAL ITEMS IN REACH. WILL CONTINUE TO MONITOR.
--- NOTE | 2019-08-17 10:08 | NUR ---
PURE WICK PLACED ON PATIENT PER REQUEST. DENIES NEEDS. WILL CONTINUE TO MONITOR.
--- NOTE | 2019-08-17 11:42 | MORECARE ---
CASE MANAGEMENT DISCHARGE SUMMARY PATIENT: JESS REYES UNIT: [id number] ADM DATE: 08/13/19 AGE: 79 : 40 SEX: F ROOM/BED: D.2109 AUTHOR: SIGIFREDO MILLER PHYSICIAN: REFERRING PHYSICIAN: CAROL DENNIS MD DATE OF SERVICE: 08/17/19 Discharge Plan Patient Name: JESS REYES Facility: [facility]:[place] : 1940 Planned Disposition: Anticipated Discharge Date: Discharge Date: Expected LOS: Initial Reviewer: [email or web address] Initial Review Date: 08/13/2019 Generated: 08/17/19 12:41 pm Last DP export: 08/15/19 11:40 am Patient Name: JESS REYES Page [id number] at 1142 All edits/amendments must be made on the electronic document DICTATION DATE: 08/17/19 1142 NURSE ANESTHETIST: IGNACIA 08/17/19 1142 RPT#: [id number] DC DATE: STATUS: ADM IN [facility] [address] [place] [address] END OF REPORT
--- NOTE | 2019-08-17 11:57 | MORECARE ---
CASE MANAGEMENT DISCHARGE SUMMARY PATIENT: JESS REYES UNIT: [id number] ADM DATE: 08/13/19 AGE: 79 : 40 SEX: F ROOM/BED: D.2109 AUTHOR: SIGIFREDO MILLER PHYSICIAN: REFERRING PHYSICIAN: CAROL DENNIS MD DATE OF SERVICE: 08/17/19 Discharge Plan Patient Name: JESS REYES Facility: [facility]:[place] : 1940 Planned Disposition: Anticipated Discharge Date: Discharge Date: Expected LOS: Initial Reviewer: [email or web address] Initial Review Date: 08/13/2019 Generated: 08/17/19 12:56 pm Last DP export: 08/17/19 10:42 am Patient Name: JESS REYES Page [id number] at 1157 All edits/amendments must be made on the electronic document DICTATION DATE: 08/17/19 1156 DOUBLE HEAD MACHINE OPERATOR: IGNACIA 08/17/19 1156 RPT#: [id number] DC DATE: STATUS: ADM IN [facility] [address] [place] [address] END OF REPORT
[2019-08-17 12:10] LABS: ANTI-GLOMERULAR BASMENT MEMBRN 3 units (0-20)
--- NOTE | 2019-08-17 12:27 | NUR ---
PATIENT REQUESTING FOOD AND DRINK. MADE AWARE AGAIN THAT UNABLE TO EAT UNTIL AFTER HEART CATH. OIL BURNER INSTALLER CALLED AND STATES PATIENT TO BE SEEN AROUND 1430 OR 1500. PATIENT MADE AWARE. VERBALIZED UNDERSTANDING.
--- NOTE | 2019-08-17 14:56 | NUR ---
PREOP MEDS GIVEN PER ORDER.
[2019-08-17 17:08] LABS: ERYTHROPOIETIN 4.3 mIU/mL (2.6-18.5)
[2019-08-17 17:08] LABS: ANA REFLEX - DIRECT Negative (Negative)
--- NOTE | 2019-08-17 17:18 | NUR ---
PATIENT RETURNED FROM PROCEDURE. VITALS STABLE. FEM STOP IN PLACE. INCISION SITE C/D/I. FAMILY AT BEDSIDE AND PATIENT BOTH EDUCATED ON NEED TO LIE FLAT FOR FIVE HOURS. WILL CONTINUE TO MONITOR.
--- NOTE | 2019-08-17 17:24 | MORECARE ---
CASE MANAGEMENT DISCHARGE SUMMARY PATIENT: JESS REYES UNIT: [id number] ADM DATE: 08/13/19 AGE: 79 : 40 SEX: F ROOM/BED: D.385 AUTHOR: SIGIFREDO MILLER PHYSICIAN: REFERRING PHYSICIAN: CAROL DENNIS MD DATE OF SERVICE: 08/17/19 Discharge Plan Patient Name: JESS REYES Facility: [facility]:[place] : 1940 Planned Disposition: Anticipated Discharge Date: Discharge Date: Expected LOS: Initial Reviewer: [email or web address] Initial Review Date: 08/13/2019 Generated: 08/17/19 6:23 pm Comments DCP- Discharge Planning Updated by [email or web address]: Carli Parikh on 08/17/19 4:[address] Pending completed testing for HD chair, time, place. CM met with patient to discuss initial discharge planning. Patient is in agreement to proceed with the assessment. Patient reports that she lives at home independently with. Patient is alert/oriented. PCP: Dr. Pillai ([facility]) Pharmacy: Mail-off, only with 100% paid meds. Patient states she has been able to obtain all of her prescribed medications. HHS: No, declines. DME: Cane, Shower chair. Emergency contact: Kay Tomlinson (family) [phone]. 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 CM discussed the availability of HH, Rehab, SNF, OP Therapy, DME services. Patient states that she will consider a SNF bed. List given to patient for choice. Await patient's decision. Patient denies hospitalization within the past 30 days. 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 Transportation at time of discharge: family member or facility. CM will follow and assist with further DC needs MO> Last DP export: 08/17/19 10:57 am Patient Name: JESS REYES Page [id number] at 9124 All edits/amendments must be made on the electronic document DICTATION DATE: 08/17/191722 STEEL GRINDER: IGNACIA 08/17/191722 RPT#: [id number] DC DATE: STATUS: ADM IN [facility] [address] [place] [address] END OF REPORT
--- NOTE | 2019-08-17 18:02 | NUR ---
PATIENT SLEEPING. VITALS REMAIN STABLE. INCISION SITE C/D/I. FEMSTOP IN PLACE.
--- NOTE | 2019-08-17 18:18 | NUR ---
REDUCED FEM STOP FROM 112 TO 84. WILL REASSESS IN THIRTY MINUTES.
--- NOTE | 2019-08-17 18:47 | NUR ---
ATTEMPTED TO RELEASE MORE PRESSURE FROM FEMSTOP. PATIENT STILL BLEEDING. PRESSURE ADDED. CHARGE NURSE REASSESSING SITE.
--- NOTE | 2019-08-17 20:17 | NUR ---
PT LYING INBED IN ROSE POSITION RESTING WITH EYES CLOSED. EASILY AWAKEN WITH VOICE STIMULATION. NO SIGNS OF DISTRESS NOTED. RESPIRATIONS EVEN AND UNLABORED. FILM STOP TO RIGHT GROIN AREA. RIGHT PEDAL PULSE PALPATABLE +1. SCANT AMOUNT OF BLOOD NOTED TO SITE. PRESSURE APPLIED. CALL LIGHT AND OTHER PERSONAL ITEMS WITH IN REACH. ASSIST WITH TRANSFER TO DIALYSIS VIA HOSPITAL BED. WILL CONTINUE TO MONITOR.
--- NOTE | 2019-08-17 23:08 | NUR ---
HEMODIALYSIS TREATMENT COMPLETED, NET FLUID REMOVAL OF 1L, TOLERATED WELL.
--- NOTE | 2019-08-17 23:48 | NUR ---
RECEIVED PT BACK TO FLOOR FROM DIALYSIS. PT AWAKE AND ALERT. PT COMPLAINS OF WANTING SOMETHING TO EAT. NO SIGNS OF DISTRESS NOTED. RESPIRATIONS EVEN AND UNLABORED. CALL LIGHT AND OTHER PERSONAL ITEMS WITH IN REACH. WILL CONTINUE TO MONITOR
[2019-08-18] VITALS (7 sets, daily range): BP systolic 137–175; BP diastolic 54–80
--- NOTE | 2019-08-18 00:36 | NUR ---
FILM STOP OFF. PT TOLERATING WELL. PEDAL PULSE TO RIGHT AND LEFT FOOT PALPATABLE. NO SIGNS OF DISTRESS NOTED. RESPIRATIONS EVEN AND UNLABORED. PT RESTING IN BED WITH EYES CLOSED. EASILY AWAKEN WITH VOICE STIMULATION. CALL LIGHT AND OTHER PERSONAL ITEMS WITH IN REACH. WILL CONTINUE TO MONITOR
--- NOTE | 2019-08-18 00:38 | NUR ---
INCESION SITE CLEAN AND DRY. NO BLOOD NOTED AT THIS TIME. PT IS IN ROSE POSITON. NO HEMOTOMA NOTED. WILL CONTINUE TO MONITOR
--- NOTE | 2019-08-18 06:43 | NUR ---
INCENSION SITE TO RIGHT GROIN CLEAN AND DRY. PEDAL PULSES PALPATABLE. NO DISCOLORATION OR HEMATOMA NOTED. PT IS RESTING WITH EYES CLOSED. EASILY AWAKEN WITH VOICE STIMUALTION. PT HAS NO COMPLAINTS AT THIS TIME. CALL LIGHT WITH IN REACH. BED ALARM ON AND ACTIVE. WILL CONTINUE TO MONITOR
[2019-08-18 06:53] LABS: ALBUMIN 2.6 g/dL (3.4-5.0); ANION GAP 11.5 mmol/L (8-16); BASOPHILS 0.1 % (0-2); BILIRUBIN - TOTAL 0.33 mg/dL (0.2-1.3); CALCIUM 7.5 mg/dL (8.5-10.1); CARBON DIOXIDE 28.2 mmol/L (21.0-32.0); CREATININE - SERUM 3.3 mg/dL (0.6-1.3); EOSINOPHILS 0 % (0-7); HEMATOCRIT 30.8 % (36.0-48.0); IMMATURE GRANULOCYTES 0.1 % (0-5); MAGNESIUM - SERUM 1.8 mg/dL (1.8-2.4); MCH 29.1 pg (26.0-34.0); MCHC 32.5 g/dL (31.0-37.0); MCV 89.5 fL (80.0-100.0); MEAN PLATELET VOLUME 9.7 fL (7.4-10.4); MONOCYTES 7.5 % (2-11); NEUTROPHILS 77.3 % (40-80); PLATELET COUNT 214 10x3/uL (130-400); POTASSIUM - SERUM 3.7 mmol/L (3.5-5.1); PROTEIN - SERUM 6.3 g/dL (6.4-8.2); RBC 3.44 10x6/uL (4.00-5.40); RDW 15.7 % (11.5-14.5); WBC 8.1 10x3/uL (4.8-10.8)
--- NOTE | 2019-08-18 08:00 | NUR ---
PT SITTING UP IN BED, RR EVEN AND UNLABORED ON RA. DENIES NEEDS OR PAIN AT THIS TIME. CATH TO RIGHT GROIN X1 DAY AGO. SITE CDI. NO SIGN OF BLEEDING OR SWELLING. CALL LIGHT WITHIN REACH. BED IN LOWEST POSITION. WILL CONTINUE TO MONITOR.
--- NOTE | 2019-08-18 11:30 | MORECARE ---
CASE MANAGEMENT DISCHARGE SUMMARY PATIENT: JESS REYES UNIT: [id number] ADM DATE: 08/13/19 AGE: 79 : 40 SEX: F ROOM/BED: D.7691 AUTHOR: SIGIFREDO MILLER PHYSICIAN: REFERRING PHYSICIAN: CAROL DENNIS MD DATE OF SERVICE: 08/18/19 Discharge Plan Patient Name: JESS REYES Facility: [facility]:[place] : 1940 Planned Disposition: Anticipated Discharge Date: Discharge Date: Expected LOS: Initial Reviewer: [email or web address] Initial Review Date: 08/13/2019 Generated: 08/18/19 12:29 pm Comments DCP- Discharge Planning Updated by [email or web address]: Carli Parikh on 08/18/19 10:[address] Faxed Hepatitis antibody to [facility] to [phone]. DCP- Discharge Planning Updated by [email or web address]: Carli Parikh on 08/17/19 4:[address] Pending completed testing for HD chair, time, place. CM met with patient to discuss initial discharge planning. Patient is in agreement to proceed with the assessment. Patient reports that she lives at home independently with. Patient is alert/oriented. PCP: Dr. Pillai ([facility]) Pharmacy: Mail-off, only with 100% paid meds. Patient states she has been able to obtain all of her prescribed medications. HHS: No, declines. DME: Cane, Shower chair. Emergency contact: Kay Tomlinson (family) [phone]. 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 CM discussed the availability of HH, Rehab, SNF, OP Therapy, DME services. Patient states that she will consider a SNF bed. List given to patient for choice. Await patient's decision. Patient denies hospitalization within the past 30 days. Patient denies the use of community resources ASSISTANT HOUSEKEEPING MANAGER. Transportation at time of discharge: family member or facility. CM will follow and assist with further DC needs IN> Last DP export: 08/17/19 4:24 pm Patient Name: JESS REYES Page [phone] at 1130 All edits/amendments must be made on the electronic document DICTATION DATE: 08/18/19 1129 ZIGZAG STITCHER: IGNACIA 08/18/19 1129 RPT#: [id number] DC DATE: STATUS: ADM IN [facility] [address] [place] [address] END OF REPORT
[2019-08-18 16:09] LABS: ANCA - ANTIMYELOPEROXIDASE <9.0 U/mL (0.0-9.0); ANCA - ANTIPROTEINASE 3 <3.5 U/mL (0.0-3.5); ANCA - ATYPICAL <1:20 titer (Neg:<1:20); ANCA - CYTOPLASMIC <1:20 titer (Neg:<1:20); ANCA - PERINUCLEAR <1:20 titer (Neg:<1:20)
--- NOTE | 2019-08-18 17:01 | NUR ---
Dialysis Coordinator: Pt accepted at [facility] on Fri/Fri/Fri Arrive: 11:00am for On-time:11:30am. Pt can start in-center on August 19 @ 11:00am. Welcome Letter faxed to SENDY Boyce. SON ZULETA.
--- NOTE | 2019-08-18 18:21 | MORECARE ---
CASE MANAGEMENT DISCHARGE SUMMARY PATIENT: ASA BERGER UNIT: [id number] ADM DATE: 08/13/19 AGE: 79 : 40 SEX: F ROOM/BED: D.132 AUTHOR: ANGELA,DOC PHYSICIAN: REFERRING PHYSICIAN: CAROL DENNIS MD DATE OF SERVICE: 08/18/19 Discharge Plan Patient Name: ASA BERGER Facility: [facility]:[place] : 1940 Planned Disposition: Anticipated Discharge Date: Discharge Date: Expected LOS: Initial Reviewer: [email or web address] Initial Review Date: 08/13/2019 Generated: 08/18/19 7:20 pm Comments DCP- Discharge Planning Updated by [id number]: Carli Parikh on 08/18/19 5:[address] Patient has a HD chair at [facility] M/W[facility], to be there at 1100 for paperwork and regular shift at 1130. She is expected to be at [facility] on Friday for her first HD. Patient was notified of this. Patient has decided that she will go into [facility]ING [facility]ACH[facility]PER[facility] Rehab, vs Skilled bed, if accepted, otherwise she will go home. She has not been in agreement with HHS. Faxed Hepatitis antibody to [facility] to [phone]. DCP- Discharge Planning Updated by [email or web address]: Carli Jamesonlroy on 08/17/19 4:[address] Pending completed testing for HD chair, time, place. CM met with patient to discuss initial discharge planning. Patient is in agreement to proceed with the assessment. Patient reports that she lives at home independently with. Patient is alert/oriented. PCP: Dr. Pillai ([facility]) Pharmacy: Mail-off, only with 100% paid meds. Patient states she has been able to obtain all of her prescribed medications. HHS: No, declines. DME: Cane, Shower chair. Emergency contact: Kay Tomlinson (family) [phone]. 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 CM discussed the availability of HH, Rehab, SNF, OP Therapy, DME services. Patient states that she will consider a SNF bed. List given to patient for choice. Await patient's decision. Patient denies hospitalization within the past 30 days. Patient denies the use of community resources EMAIL CAMPAIGN MANAGER. Transportation at time of discharge: family member or facility. CM will follow and assist with further DC needs [place]> Coverage Notice Reviewer: [email or web address] Jovany Parikh Notice Issued Date-Time: 08/18/2019 18:16 Notice Type: Patient Choice Letter Notice Delivered To: Patient Relationship to Patient: Self Air Pollution Compliance Inspector Name: Asa Berger Delivery Method: HAND - Hand Delivered Ashley Days: Prior Verbal Notification: Recipient Understood Notice: Yes Recipient Signature: Yes Med Rec Note Co-signed by Attending: Coverage Notice Comment: Patient choice for [facility] Rehab. Last DP export: 08/18/19 10:30 am Patient Name: ASA BERGER Page [phone] at 1821 All edits/amendments must be made on the electronic document DICTATION DATE: 08/18/191819 WIRE STRIPPING MACHINE OPERATOR: IGNACIA 08/18/191819 RPT#: [id number] DC DATE: STATUS: ADM IN [facility] [address] [place] [address] END OF REPORT
--- NOTE | 2019-08-18 18:58 | NUR ---
I have reviewed this patient and I concur with the Shift Assessment completed by the Licensed Practical Nurse today this shift.
--- NOTE | 2019-08-18 19:51 | NUR ---
PT IS IN DIALYSIS.
--- NOTE | 2019-08-18 19:52 | NUR ---
I HAVE RECEIVED REPORT. PT IS OFF FLOOR IN DIALYSIS.
[2019-08-19] VITALS: BP 171/75
[2019-08-19 04:00] VITALS: BP 181/83
[2019-08-19 06:30] LABS: BASOPHILS 0.1 % (0-2); EOSINOPHILS 0.8 % (0-7); HEMATOCRIT 28.6 % (36.0-48.0); HEMOGLOBIN 9.2 g/dL (12-16); IMMATURE GRANULOCYTES 0.1 % (0-5); LYMPHOCYTES 25.6 % (15-50); MCH 28.8 pg (26.0-34.0); MCHC 32.2 g/dL (31.0-37.0); MCV 89.4 fL (80.0-100.0); MEAN PLATELET VOLUME 9.5 fL (7.4-10.4); MONOCYTES 9.3 % (2-11); NEUTROPHILS 64.1 % (40-80); PLATELET COUNT 197 10x3/uL (130-400); RDW 15.3 % (11.5-14.5); WBC 7.1 10x3/uL (4.8-10.8)
[2019-08-19 06:39] LABS: ANION GAP 7.4 mmol/L (8-16); CALCIUM 8.2 mg/dL (8.5-10.1); CREATININE - SERUM 2.7 mg/dL (0.6-1.3); MAGNESIUM - SERUM 1.8 mg/dL (1.8-2.4); POTASSIUM - SERUM 3.4 mmol/L (3.5-5.1)
--- NOTE | 2019-08-19 08:00 | NUR ---
PT SITTING UP IN BED. RR EVEN AND UNLABORED. PT STATES HER IV IS COMING OUT. IV CATHETER OUT WITH CATHETER TIP INTACT. KENNEDY RODRIGUEZ IS AWARE AND OKAY WITH IV BEING OUT. RR EVEN AND UNLABORED. CALL LIGHT WITHIN REACH. BED IN LOWEST POSITION. WILL CONTINUE TO MONITOR.
[2019-08-19 09:00] VITALS: BP 183/93
--- NOTE | 2019-08-19 10:16 | NUR ---
Rehab Note- Acute Inpatient Rehab prescreen order received. The patient has [employer] insurance and will require a PreAuth prior to an acute inpatient rehab stay. She has a pending OT Eval that will be needed for PreAuth. Will follow at this time. Thank you for this referral! Zonia Murillo RN Clinical Liaison, [facility] Rehab
[2019-08-19 11:00] VITALS: BP 174/85
--- NOTE | 2019-08-19 11:19 | NUR ---
Nutrition Follow-up: Pt c/o headache this AM and had not eaten breakfast at time of visit. Reports overall appetite is ok and has been eating at least 50% of meals. Denies N/V. BM today but c/o constipation. Had HD yesterday. Awaiting rehab placement. Diet: Renal Wt: 132# (08/18); 144.4# (08/17); 147# (08/16) Labs noted: K+ 3.4, Ca 8.2 Meds noted: Pepcid, electrolyte protocol -Encourage PO intake and honor food preferences within diet restrictions. -Monitor wt; noted daily wts ordered. -RD following.
--- NOTE | 2019-08-19 13:06 | MORECARE ---
CASE MANAGEMENT DISCHARGE SUMMARY PATIENT: ASA BERGER UNIT: [id number] ADM DATE: 08/13/19 AGE: 79 : 40 SEX: F ROOM/BED: D.2109 AUTHOR: ANGELA,DOC PHYSICIAN: REFERRING PHYSICIAN: CAROL DENNIS MD DATE OF SERVICE: 08/19/19 Discharge Plan Patient Name: ASA BERGER Facility: [facility]:[place] : 1940 Planned Disposition: Anticipated Discharge Date: Discharge Date: Expected LOS: Initial Reviewer: [email or web address] Initial Review Date: 08/13/2019 Generated: 08/19/19 2:06 pm Comments DCP- Discharge Planning Updated by [email or web address]: Carli Jl on 08/19/19 12:[address] Patient has a chair with [facility] @1130 M/W/F, with the first OP treatment Friday. Patient is to be there by 1100 for paperwork. DCP- Discharge Planning Updated by [email or web address]: Carli Parikh on 08/18/19 5:[address] Patient has a HD chair at [facility] M/W/F, to be there at 1100 for paperwork and regular shift at 1130. She is expected to be at [facility] on Friday for her first HD. Patient was notified of this. Patient has decided that she will go into [facility], vs Skilled bed, if accepted, otherwise she will go home. She has not been in agreement with HHS. Faxed Hepatitis antibody to Melissa Bond to [phone]. DCP- Discharge Planning Updated by [id number]: Carli Parikh on 08/17/19 4:[address] Pending completed testing for HD chair, time, place. CM met with patient to discuss initial discharge planning. Patient is in agreement to proceed with the assessment. Patient reports that she lives at home independently with. Patient is alert/oriented. PCP: Dr. Pillai ([facility]) Pharmacy: Mail-off, only with 100% paid meds. Patient states she has been able to obtain all of her prescribed medications. HHS: No, declines. DME: Cane, Shower chair. Emergency contact: Kay Tomlinson (family) [phone]. 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 CM discussed the availability of HH, Rehab, SNF, OP Therapy, DME services. Patient states that she will consider a SNF bed. List given to patient for choice. Await patient's decision. Patient denies hospitalization within the past 30 days. 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 Transportation at time of discharge: family member or facility. CM will follow and assist with further DC needs [place]> Coverage Notice Reviewer: [id number] Jovany Parikh Notice Issued Date-Time: 08/18/2019 18:16 Notice Type: Patient Choice Letter Notice Delivered To: Patient Relationship to Patient: Self Java Web Developer Name: Asa Berger Delivery Method: HAND - Hand Delivered Ashley Days: Prior Verbal Notification: Recipient Understood Notice: Yes Recipient Signature: Yes Med Rec Note Co-signed by Attending: Coverage Notice Comment: Patient choice for [facility]. Last DP export: 08/18/19 5:21 pm Patient Name: ASA BERGER Page [phone] at 1306 All edits/amendments must be made on the electronic document DICTATION DATE: 08/19/19 1306 DROPHAMMER OPERATOR: IGNACIA 08/19/19 1306 RPT#: [id number] DC DATE: STATUS: ADM IN [facility] [address] [place] [address] END OF REPORT
--- NOTE | 2019-08-19 14:34 | NUR ---
CALLED TO ROOM TO LISTEN TO PATIENT COMPLAINT. PATIENTIS CONCERNED THAT HER BLOOD PRESSURE IS NOT BEING TREATED CORRECTLY EVEN THOUGH SHE IS ON MULTIPLE MEDS. STATES THAT SHE WANTS TO GET STRONGER BEFORE SHE GOES HOME. SHE IS HAPPY WITH THE CARE BUT CONCERNED WITH BLOOD PRESSURE. THIS INFORMATION IS PASSED TO SUDHAKAR NORTON PRIMARY NURSE WHO IS SPEAKING TO THE RENAL DOCTOR (CALLI) AT THIS TIME.
[2019-08-19 15:00] VITALS: BP 173/77
--- NOTE | 2019-08-19 15:51 | NUR ---
Rehab Note- Have initiated PreAUth and faxed in clinicals to [facility] on behalf of [facility], still no OT Eval- will fax when avaliable. THank you for this referral! Zonia Murillo RN Clinical Liaison, [facility] Rehab
--- NOTE | 2019-08-19 17:50 | NUR ---
I have reviewed this patient and I concur with the Shift Assessment completed by the Licensed Practical Nurse today this shift.
--- NOTE | 2019-08-19 20:18 | NUR ---
PATIENT IS RESTING COMFORTABLY IN BED. SHE IS ALERT AND ORIENTATED. SHE IS CONCERNED ABOUT HER BLOOD PRESSURE BEING HIGH. SHE HAS SOME BLOOD PRESSURE MEDICINE DUE NOW. THAT REASSURED HER. WE WILL CONTINE TO MONITOR HER BLOOD PRESSURE.
[2019-08-19 21:11] VITALS: BP 155/71
[2019-08-20 00:32] VITALS: BP 138/69
--- NOTE | 2019-08-20 04:23 | NUR ---
PATIENT IS SLEEPING IN BED. NO COMPLAINTS AT THIS TIME. SHE IS FORGETFUL. SHE WAS CONCERNED ABOUT HER BLOOD PRESSURE. SHE WANTED ME TO TAKE IT, THE VISION SPECIALIST HAD JUST TAKEN HER BP. I TOOK IT AGAIN TO APEASE HER. SHE IS NORMAL SINUS ON TELE. HER LUNGS SOUND CLEAR. TESSIO SITE IS CLEAN, DRY AND INTACT. WE WILL CANTINUE TO MONITOR HER HEART RATE AND RHYTHM.
[2019-08-20 04:43] LABS: BASOPHILS 0.3 % (0-2); EOSINOPHILS 1.5 % (0-7); HEMATOCRIT 30.8 % (36.0-48.0); HEMOGLOBIN 9.7 g/dL (12-16); IMMATURE GRANULOCYTES 0.1 % (0-5); LYMPHOCYTES 25.5 % (15-50); MCH 28.6 pg (26.0-34.0); MCHC 31.5 g/dL (31.0-37.0); MCV 90.9 fL (80.0-100.0); MEAN PLATELET VOLUME 9.3 fL (7.4-10.4); MONOCYTES 7.3 % (2-11); NEUTROPHILS 65.3 % (40-80); PLATELET COUNT 177 10x3/uL (130-400); RBC 3.39 10x6/uL (4.00-5.40); RDW 15.5 % (11.5-14.5); WBC 6.7 10x3/uL (4.8-10.8)
[2019-08-20 04:51] VITALS: BP 141/67
[2019-08-20 05:00] LABS: ANION GAP 9.5 mmol/L (8-16); CALCIUM 7.6 mg/dL (8.5-10.1); CARBON DIOXIDE 30.9 mmol/L (21.0-32.0); POTASSIUM - SERUM 3.4 mmol/L (3.5-5.1)
[2019-08-20 05:01] LABS: CREATININE - SERUM 3.8 mg/dL (0.6-1.3)
--- NOTE | 2019-08-20 07:38 | NUR ---
ROUNDING DONE WITH PATIENT HAVING NO NEEDS VOICED. ON ROOM AT THIS TIME. ON HEART MONITOR SHOWING SR, HR 71. RIGHT CHEST HEMISPLIT SEEN WITH DRY INTACT DRESSING. NO IV ACCESS IS SEEN. GLASSES ON. STATES TO NO NEEDS AT THIS TIME.
[2019-08-20] MEDS ORDERED: PLAVIX75 MG PO (07:46)
[2019-08-20] MEDS ORDERED: PRAVACHOL20 MG PO (07:46)
[2019-08-20] MEDS ORDERED: FUROSEMIDE20 MG PO (07:47)
[2019-08-20] MEDS ORDERED: BAYER CHEWABLE81 MG PO (08:17)
[2019-08-20 09:00] VITALS: BP 137/71
--- NOTE | 2019-08-20 14:21 | NUR ---
Rehab Note- Spoke with Alexander at [facility] on behalf of [facility] and stated case still pending with clinical reviewer, stated she would esculate the case at this time. Spoke with Evelia Arceo CM about still awaiting pending auth. Will contnue to await determination at this time. Thank you for this referral! Zonia Murillo RN Clinical Liaison, [facility] Rehab
--- NOTE | 2019-08-20 15:01 | NUR ---
PATIENT HAS BEEN TO DIALYSIS AND BACK. FINISHED LUNCH. VERBAL AND WRITTEN DISCHARGE INSTRUCIONS GIVEN TO PATIENT. DISCHARGED HOME VIA WHEELCHAIR.
--- NOTE | 2019-08-20 17:55 | MORECARE ---
CASE MANAGEMENT DISCHARGE SUMMARY PATIENT: ASA BERGER UNIT: [id number] ADM DATE: 08/13/19 AGE: 79 : 40 SEX: F ROOM/BED: D.2109 AUTHOR: ANGELA,DOC PHYSICIAN: REFERRING PHYSICIAN: CAROL DENNIS MD DATE OF SERVICE: 08/20/19 Discharge Plan Patient Name: ASA BERGER Facility: [facility]:[place] : 1940 Planned Disposition: Home Anticipated Discharge Date: 08/20/19 Discharge Date: 08/20/2019 Expected LOS: 7 Initial Reviewer: [email or web address] Initial Review Date: 08/13/2019 Generated: 08/20/19 6:55 pm Comments DCP- Discharge Planning Updated by [email or web address]: Carli Parikh on 08/19/19 12:[address] Patient has a chair with [facility] @1130 M/W/F, with the first OP treatment Friday. Patient is to be there by 1100 for paperwork. DCP- Discharge Planning Updated by [email or web address]: Carli Parikh on 08/18/19 5:[address] Patient has a HD chair at [facility] M/W/F, to be there at 1100 for paperwork and regular shift at 1130. She is expected to be at [facility] on Friday for her first HD. Patient was notified of this. Patient has decided that she will go into [facility], vs Skilled bed, if accepted, otherwise she will go home. She has not been in agreement with [facility]. Faxed Hepatitis antibody to Melissa Bond to [phone]. DCP- Discharge Planning Updated by [id number]: Carli Parikh on 08/17/19 4:[address] Pending completed testing for HD chair, time, place. CM met with patient to discuss initial discharge planning. Patient is in agreement to proceed with the assessment. Patient reports that she lives at home independently with. Patient is alert/oriented. PCP: Dr. Pillai ([facility]) Pharmacy: Mail-off, only with 100% paid meds. Patient states she has been able to obtain all of her prescribed medications. HHS: No, declines. DME: Cane, Shower chair. Emergency contact: Kay Tomlinson (family) [phone]. Patient is Independent with all ADL's, medication management MANAGER BAKERY. CM discussed the availability of HH, Rehab, SNF, OP Therapy, DME services. Patient states that she will consider a SNF bed. List given to patient for choice. Await patient's decision. Patient denies hospitalization within the past 30 days. Patient denies the use of community resources MANAGER BAKERY. Transportation at time of discharge: family member or facility. CM will follow and assist with further DC needs [place]> DCPIA - Discharge Planning Initial Assessment Updated by [id number]: Carli Parikh on 08/20/19 5:52 pm * Is the patient Alert and Oriented? Yes * PCP Dr. Rosas VELASQUEZ * Pharmacy Mail-off * Preadmission Environment Home Alone * ADLs Independent * Equipment Cane Shower Chair * Other Equipment Cane, Shower chair * List name and contact numbers for known caregivers / representatives who currently or will assist patient after discharge: Kay Tomlinson (Family) [phone] * Community resources currently utilized None * Please name any agencies selected above. ORD M/W/FR @4360 * Additional services required to return to the preadmission environment? No * Can the patient safely return to the preadmission environment? Yes * Has this patient been hospitalized within the prior 30 days at any hospital? No Coverage Notice Reviewer: [email or web address] Jovany Parikh Notice Issued Date-Time: 08/18/2019 18:16 Notice Type: Patient Choice Letter Notice Delivered To: Patient Relationship to Patient: Self Medical Instrument Technician Name: Asa Berger Delivery Method: HAND - Hand Delivered Ashley Days: Prior Verbal Notification: Recipient Understood Notice: Yes Recipient Signature: Yes Med Rec Note Co-signed by Attending: Coverage Notice Comment: Patient choice for [facility]. Reviewer: [email or web address] Jovany Parikh Notice Issued Date-Time: 08/20/2019 17:23 Notice Type: Patient Choice Letter Notice Delivered To: Patient Relationship to Patient: Self Medical Instrument Technician Name: Asa Berger Delivery Method: HAND - Hand Delivered Ashley Days: Prior Verbal Notification: Recipient Understood Notice: Yes Recipient Signature: Yes Med Rec Note Co-signed by Attending: Coverage Notice Comment: Patient signed the patient choice declining HHS, OP therapy. Original to chart. Last DP export: 08/19/19 12:07 pm Patient Name: ASA BERGER Page [phone] at 1755 All edits/amendments must be made on the electronic document DICTATION DATE: 08/20/191754 WATER QUALITY ANALYST: IGNACIA 08/20/191754 RPT#: [id number] DC DATE:08/20/19 STATUS: DIS IN [facility] [address] [place] [address] END OF REPORT
--- NOTE | 2019-08-23 08:06 | OP ---
PATIENT NAME: JESS REYES MEDICAL RECORD: [id number] :40 LOCATION:D.M2 D.0 ADMISSION DATE:08/13/19 SURGEON: KENNETH MELVIN MD DATE OF OPERATION: 08/17/2019 Cath and PTCA stent report PROCEDURE: 1. Left ventriculography and catheterization. 2. PTCA stent of the right. 3. Stent to the LAD. PROCEDURE: Left heart catheter, selective coronary angiography, right femoral artery approach. CATHETERS: A 5-Senegalese sheath, 5/4 left and right Augustina, 5/4 pig. The procedure was well tolerated. We proceeded to the right LAD. FINDINGS: Left ventriculography in 30-degree BASURTO view: Normal wall motion. Normal systolic function. CORONARY ANATOMY: LEFT MAIN: Left main is free of disease. LAD: Has a large vessel, has a proximal diffuse complex stenosis of 80%. This began as a right at the ostium of the LAD down the mid portion of vessel. It is a large vessel, distal vasculature and apex. CIRCUMFLEX: Circumflex is a smallest vessel, free of disease. RIGHT CORONARY ARTERY: The right coronary artery was a dominant artery and again has severe diffuse disease from the mid portion down to the bifurcation of PD and PL branches. PLAN: Intervention of the right coronary after using a long 6-Senegalese sheath. Hockey stick guide catheter provided excellent guide catheter support followed by 300 cm Whisper placed across the 80% stenosis right down to the mid portion of the vessel. Pre-deployment balloon was a 3.0 x 15 mm Burke up and down the right coronary. Next, stents were placed in the following fashion distally, a 3.0 x 18 mm, 3.0 x 26 mm, and finally another 3.0 x 15 mm all Integrity nondrug-eluting stents, all inflated up to 14 atmospheres for 45 seconds showed excellent resolution of a long diffuse 80% stenosis, no significant residual. CHEL flow was 3 throughout the procedure. Next PTCA stenting to the LAD: Using an indwelling sheath, XB LAD guiding catheter provided excellent guiding catheterization report followed by 300 cm Whispers, wires were placed across the 90%stenosed LAD, down the mid portion of the vessel. Stents used were a 3.5 x 26 and a 3.5 x 15 both Integrity nondrug eluting stent up to 14 atmospheres. Final angiography shows excellent resolution of a diffuse 90% stenosis, no significant residual, minimal snowplowing to the diagonal itself. CHEL flow was 3 throughout the procedure. IMPRESSION: Sucessful stenting to both the right and LAD. Complications none. Sheath closed with ExoSeal device. Plavix was loaded in the lab. Heparin and Integrilin was used during the case and the patient was rebolused during the case as well. OPERATIVE REPORT [id number] JESS REYES TRANSINT:[id number] Voice Confirmation ID: [id number] DOCUMENT ID: [id number] KENNETH MELVIN MD at 0806 CC: [id number] DICTATION DATE: 08/17/19 1659 SHEET HEATER: 08/18/19 0251 DIS IN 08/20/19 [id number] [place] [address]
== END 2019-08-20 15:04 | disposition home or self-care (01) | DRG 248 ==
LOC: D.ER 08:54 → D.M2 11:45
PROVIDERS: Family Medicine; General Practice; Internal Medicine Hematology & Oncology; Internal Medicine Interventional Cardiology; Internal Medicine Nephrology; Surgery; ADMIT Family Medicine; ATTEND Family Medicine
PROC: B5131ZA Fluoroscopy of Right Jugular Veins using Low Osmolar Contrast, Guidance (ICD-10-PCS; 2019-08-16)
PROC: 05HM33Z Insertion of Infusion Device into Right Internal Jugular Vein, Percutaneous Approach (ICD-10-PCS; principal; 2019-08-16 11:00)
PROC: 4A023N7 Measurement of Cardiac Sampling and Pressure, Left Heart, Percutaneous Approach (ICD-10-PCS; 2019-08-17)
PROC: 02713GZ Dilation of Coronary Artery, Two Arteries with Four or More Intraluminal Devices, Percutaneous Approach (ICD-10-PCS; 2019-08-17 14:00)
DX: I13.2 Hypertensive heart and chronic kidney disease with heart failure and with stage 5 chronic kidney disease, or end stage renal disease (principal); N18.6 End stage renal disease; I21.A1 Myocardial infarction type 2; N39.0 Urinary tract infection, site not specified; N17.9 Acute kidney failure, unspecified; I24.8 Other forms of acute ischemic heart disease; I25.10 Atherosclerotic heart disease of native coronary artery without angina pectoris; D63.1 Anemia in chronic kidney disease; I50.9 Heart failure, unspecified; D50.9 Iron deficiency anemia, unspecified; Z91.19 Patient's noncompliance with other medical treatment and regimen

== ENCOUNTER 2020-04-25 05:47 | Day surgery (SDC) | payer MEDICARE, OTHER ==
[~2020-04-25] VITALS: Ht 160 cm; Wt 58.1 kg
[~2020-04-25 05:47] MED LIST changes: +ACETAMINOPHEN500 M1 PO; +ADALAT CC90 MG PO; +BAYER CHEWABLE81 MG PO; +COREG6.25 MG PO; +FERROUS SULFAT325 MG PO; +LASIX40 MG PO; +PLAVIX75 MG PO; +PRAVACHOL20 MG PO; +PROTONIX40 MG PO
[2020-04-25 06:29] LABS: BASOPHILS 0.4 % (0-2); EOSINOPHILS 1.7 % (0-7); HEMATOCRIT 31.9 % (36.0-48.0); IMMATURE GRANULOCYTES 0.4 % (0-5); LYMPHOCYTE ABS# 2.52 10x3/uL (1.18-3.74); LYMPHOCYTES 35.6 % (15-50); MCH 29.1 pg (26.0-34.0); MCHC 31.3 g/dL (31.0-37.0); MCV 92.7 fL (80.0-100.0); MEAN PLATELET VOLUME 9.5 fL (7.4-10.4); MONOCYTES 7.6 % (2-11); NEUTROPHIL ABS# 3.84 10x3/uL (1.56-6.13); NEUTROPHILS 54.3 % (40-80); PLATELET COUNT 149 10x3/uL (130-400); RBC 3.44 10x6/uL (4.00-5.40); RDW 15.5 % (11.5-14.5); WBC 7.1 10x3/uL (4.8-10.8)
[2020-04-25 06:47] LABS: ANION GAP 12.4 mmol/L (8-16); CALCIUM 7.8 mg/dL (8.5-10.1); CARBON DIOXIDE 28.5 mmol/L (21.0-32.0); CREATININE - SERUM 5.7 mg/dL (0.6-1.3); POTASSIUM - SERUM 3.9 mmol/L (3.5-5.1)
[2020-04-25 07:11] LABS: INR 1.12 (0.85-1.17); PROTIME 13.3 SECONDS (11.6-15.0)
[2020-04-25 08:26] VITALS: BP 114/66; Ht 160 cm; Wt 58.1 kg
[2020-04-25] MEDS ORDERED: ULTRAM50 MG PO (10:57)
--- NOTE | 2020-04-25 11:02 | NUR ---
SHORT STAY OK IF APPROPRIATE, PER ANESTHESIA
--- NOTE | 2020-04-25 11:08 | NUR ---
DR RICE AT BEDSIDE TO VERIFY FISTULA SOUNDS VIA DOPPLER. FLOW VERIFIED BY HIM.
--- NOTE | 2020-04-25 12:16 | NUR ---
PT DENIES PAIN/NEEDS AT THIS TIME. IS RESTING QUIETLY IN BED W/ FAMILY AT BEDSIDE. IS EATING CRACKERS AND PEANUT BUTTER AT THIS TIME. WILL CONTINUE TO MONITOR.
--- NOTE | 2020-04-27 17:23 | OP ---
PATIENT NAME: JESS REYES MEDICAL RECORD: [id number] :40 LOCATION:[facility]JELICA ADMISSION DATE: SURGEON: WALI RICE MD DATE OF OPERATION: 04/25/2020 REFERRED BY: Lula Grey MD PREOPERATIVE DIAGNOSES: End-stage renal disease and dependence on hemodialysis. POSTOPERATIVE DIAGNOSES: End-stage renal disease and dependence on hemodialysis. OPERATION PERFORMED: Creation of right brachiocephalic arteriovenous fistula. SURGEON: Wali Rice MD ANESTHESIA: Regional nerve block and MAC per COMMUNITY CENTER WORKER. PREOPERATIVE NOTE: This 80-year-old -Tuvaluan female is on chronic hemodialysis as an outpatient at [facility], needs a long-term access. She has been dialyzing now for a long time with a catheter. Vein mapping has revealed a satisfactory right cephalic vein and despite the fact that she is right handed, we are going to the operating room today and we are going to create a right brachiocephalic AV fistula. DESCRIPTION OF PROCEDURE: Under anesthesia, the patient was placed in supine position, prepped and draped in a sterile manner. Nitroglycerin was applied to the intact skin of the arm and forearm and the Dank drain was used as a proximal venous tourniquet. I examined her with the ultrasound, and found indeed the cephalic vein was satisfactory as was the median cubital cephalic vein and the brachial artery in the antecubital space. I then made a transverse incision just below the crease at the elbow and exposed to the median cubital vein coursing to the cephalic in the upper arm and dissected it from surrounding structures. The deep branch was ligated and divided and the forearm tributary also was multiply ligated and divided. The vein was thus fully mobilized, it was ligated distally and then transected and bevelled. It was flushed with heparinized saline and clamped with an atraumatic vascular clamp. The brachial artery was then exposed and controlled with Silastic loops. Hemostasis was obtained with minimal use of electrocautery. The artery was occluded and then opened for about 5-6 mm. The arteriotomy was flushed proximally and distally with heparinized saline and a vein to the artery, end of vein to side of artery anastomosis was then completed with a running 7-0 Prolene. When the occluding loops and clamps were released, the suture line was hemostatic and there was an excellent thrill and excellent continuous pulsatile Doppler flow in the new fistula and there was preservation of the pulsatile high resistance flow in the distal brachial artery and then the radial and ulnar arteries at the wrist. The wound was closed with interrupted inverted 3-0 Vicryl and running intracuticular 4-0 Stratafix and Dermabond glue. It was dressed with Maxorb AG, Tegaderm, and Cavilon skin prep. She was awakened and taken to the recovery room. Blood loss from the operation was trivial and unreplaced. Sponges, instruments and needles were accounted for. No drain was used and no surgical specimen submitted for histopathology. PLAN: Plan for the patient to be discharged to home today. She will resume all OPERATIVE REPORT [id number] JESS REYES of her home medications including Plavix starting in the morning. I will see her back in my office in the next 1-2 weeks. She is given a prescription for tramadol 50 mg, she can take one as often as every 4 hours p.r.n. for pain, 10 tablets, no refills. TRANSINT:[id number] Voice Confirmation ID: [id number] DOCUMENT ID: [id number] WALI RICE MD at 1723 CC: [id number] DICTATION DATE: 04/25/20 1117 LOCATOR SPECIALIST: 04/25/20 1628 [facility] 04/25/20 [id number] [place] [address]
== END 2020-04-25 12:40 | disposition home or self-care (01) ==
LOC: D.OPS 05:47
PROVIDERS: ATTEND Surgery
DX: N18.6 End stage renal disease (principal); Z99.2 Dependence on renal dialysis; I10 Essential (primary) hypertension

== ENCOUNTER → 2020-06-20 07:47 | Outpatient (CLI) | payer MEDICARE, OTHER ==
[2020-04-25 08:26] VITALS: BMI 22.7
[~2020-06-20 07:47] MED LIST changes: +ULTRAM50 MG PO
--- NOTE | 2020-06-21 12:15 | ST ---
PATIENT:JESS REYES MEDICAL RECORD: [id number] SEX: F LOCATION:[facility] ORDER #: ADMISSION DATE: 06/20/20 AGE OF PATIENT: 80 REFERRING PHYSICIAN: INTERPRETING PHYSICIAN: KENNETH MELVIN MD DATE OF SERVICE: 06/20/2020 NUCLEAR STRESS TEST GATED: Gated is normal with normal wall motion. Normal EF. Calculated EF 57%. SPECT IMAGING: Short axis view: Short axis view shows reversible defect along the inferior wall. Horizontal axis: This is confirmed in the horizontal axis with a reversible inferior defect. Vertical axis: Vertical axis shows good uptake along the lateral wall and septum. FINAL IMPRESSION: 1. Normal gated, normal wall motion, EF of 57%. 2. Abnormal SPECT imaging. Reversible defect seen at 2 views. FINAL IMPRESSION: This patient with ongoing symptomatology and known history of coronary artery disease. This scan is worrisome for recurrence of disease with ongoing ischemia. We will consider diagnostic angiography if clinically indicated. TRANSINT:[id number] Voice Confirmation ID: [id number] DOCUMENT ID: [id number] KENNETH MELVIN MD at 1215 CC: [id number] DICTATION DATE: 06/20/20 1529 APPRENTICE ELECTRICIAN: 06/21/20 0400 DEP CLI 06/20/20 [id number] [place] [address]
== END | disposition home or self-care (01) ==
LOC: D.HCCARDIO 07:47
PROVIDERS: ATTEND Internal Medicine Interventional Cardiology
DX: R06.00 Dyspnea, unspecified (principal)

== ENCOUNTER 2020-07-11 07:49 | Day surgery (SDC) | payer MEDICARE, OTHER ==
[~2020-07-11] VITALS: Ht 160 cm; Wt 64.0 kg
--- NOTE | ~2020-07-11 | HEMODYNAMI ---
PATIENT:JESS REYES MEDICAL RECORD: [id number] : 40 LOCATION:[facility] ADMISSION DATE: 07/11/20 Generatedon:111:05 Patient name: JESS REYES Patient #: [id number] SSN: [id number] : 1940 Date of study: 07/11/2020 Page: Of Hemodynamic Procedure Report Patient Data Patient Demographics Procedure consent was obtained First Name: JESS Gender: Female Last Name: ERIC : 1940 Middle Initial: F Age: 80 year(s) Patient #: [id number] Race: Black SSN: [id number] Additional ID: [id number] Contact details Address: [address] [place] [address] State: [place] City: [place] Zip code: [address] Past Medical History Performed procedures and imaging results Date Procedure Procedure Results Comments 06/20/2020 Stress testing Positive->Intermediate with SPECT MPI risk History of disease Date Diagnosis Comments 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 Allergies Allergen Reaction Date Comments Reported Iodine 08/17/2019 Other allergy 08/17/2019 MILK Admission Admission Data Admission Date: 07/11/2020 Admission Time: 7:49 Arrival Date: 07/11/2020 Arrival Time: 0:00 Admit Source: Other Insurance Payor: Medicare [facility] #: [id number] Lab Results Lab Result Date: 07/11/2020 Lab Result Time: 0:00 Biochemistry Name Units Result Min Max BUN mg/dl 48 --(----)-* 7 18 Creatinine mg/dl 7.4 --(----)-* 0.6 1.3 eGFR ml/min 7.211811 *-(----)-- 90 120 AM CBC Name Units Result Min Max Hematocrit % 36 *-(----)-- 42 54 Hemoglobin g/dl 11.6 *-(----)-- 13.5 17.5 Procedure Procedure Types Cath Procedure Diagnostic Procedure LHC LHC w/Coronaries FFR/IVUS FFR Initial FFR Additional Sedation Charges Moderate Sedation 55-69 minutes PCI Procedure Hemochron ACT Test PTCA PTCA Initial x2 Procedure Description Procedure Date Procedure Date: 07/11/2020 Procedure Start Time: 10:03 Procedure End Time: 10:55 Procedure Staff Name Function Jarek Baez MD Performing Physician Clementina Garrido RT Monitor Heidi Paniagua RT Scrub Delfin Gold RN Nurse Brennon Raymond RN Nurse Procedure Data Cath Procedure Fluoroscopy Diagnostic fluoroscopy Total fluoroscopy Time: time: 10.6 min 10.6 min Diagnostic fluoroscopy Total fluoroscopy dose: dose: 1170 mGy 1170 mGy Contrast Material Contrast Material Type Amount (ml) Isovue 300 163 Entry Location Entry Primary Successful Side Size Upsize Upsize Entry Closure Succes sful Closure Location (Fr) 1 (Fr) 2 (Fr) Remarks Device Remarks Femoral Right 5 Fr 6 Fr Exoseal artery Short Estimated blood loss: 5 ml Diagnostic catheters Device Type Used For End Catheter Placement MULTIPACK JL 4.0 5Fr Left Coronary catheter Angiography MULTIPACK 3DRC 5Fr Right Coronary catheter Angiography MULTIPACK Pigtail 5 Fr LV Angiography catheter Procedure Complications No complications Procedure Medications Medication Administration Route Dosage 0.9% NaCl I.V. 100 ml/hr Oxygen etCO2 Nasal cannula 2 l/min Heparin Flush Bag added to field 2 bags (1000units/500ml NS) Lidocaine 2% added to field 20 Versed I.V. 1 mg Fentanyl I.V. 50 mcg Versed I.V. 0.5 mg Fentanyl I.V. 25 mcg Heparin Bolus I.V. 5000 units Heparin Bolus I.V. 3000 units Hemodynamics Rest HGB: 11.6 (g/dl) Heart Rate: 66 (bpm) Pressure Samples Time Site Value (mmHg) Purpose Heart Use Rate(bpm) 10:10 LV 105/1,8 Snapshot 63 10:10 AO 150/60(97) Pullback 64 Gradients Valve Time Site Site 2 Mean SEP/DFP Peak To Heart Use 1 (mmHg) (sec/min) Peak Rate (mmHg) (bpm) Aortic 10:10 LV AO 64 150/60(97) Snapshots Pre Cath Intra NCS Post Cath Vital Signs Time Heart Resp SPO2 etCO2 NIBP (mmHg) Rhythm Pain Sedation Rate (ipm) (%) (mmHg) Status Level (bpm) 9:52:20 66 15 100 38.3 205/87(152) NSR 0 (11) 10(A) , No pain 9:57:01 64 14 100 32.2 194/81(142) NSR 0 (11) 9(A) , No pain 10:01:29 60 11 100 0 155/71(126) NSR 0 (11) 9(A) , No pain 10:05:56 61 24 100 38.3 148/66(118) NSR 0 (11) 9(A) , No pain 10:10:16 64 14 100 33.7 165/73(118) NSR 0 (11) 9(A) , No pain 10:14:44 67 20 100 33.8 162/67(126) NSR 0 (11) 9(A) , No pain 10:19:12 63 14 100 41.3 161/66(126) NSR 0 (11) 9(A) , No pain 10:23:39 64 12 100 41.3 156/67(118) NSR 0 (11) 9(A) , No pain 10:28:01 63 13 100 36.7 174/77(141) NSR 0 (11) 9(A) , No pain 10:32:31 62 14 100 34.5 170/72(130) NSR 0 (11) 9(A) , No pain 10:36:59 63 17 100 33.8 168/72(130) NSR 0 (11) 9(A) , No pain 10:41:30 65 14 100 34.5 166/67(123) NSR 0 (11) 9(A) , No pain 10:45:56 66 14 100 33.8 178/77(140) NSR 0 (11) 9(A) , No pain 10:50:27 67 17 100 31.5 165/74(134) NSR 0 (11) 10(A) , No pain 10:54:55 70 17 100 35.3 175/72(132) NSR 0 (11) 10(A) , No pain Medications Time Medication Route Dose Verified Delivered Reason Notes Effectiveness by by 9:51:18 Versed I.V. 1 mg Jarek Willett for sedation St Jabier Raymond RN, MD 9:51:25 Fentanyl I.V. 50 Jarek Willett for sedation mcg St Jabier Raymond RN, MD 9:55:50 0.9% NaCl I.V. 100 Jarek Brennon used for ml/hr St Jabier Raymond RN procedure MD 9:55:58 Oxygen etCO2 2 Jarek Brennon used for Nasal l/min St Jabier Raymond RN procedure cannula 9:56:07 Heparin Flush added 2 Jarek Jarek used for Bag to bags [facility] procedure (1000units/500ml field MD JONES NS) 9:56:15 Lidocaine 2% added 20ml Jarek Tilley for local to vial [facility] anesthetic field MD JONES 10:01:55 Versed I.V. 0.5 Jarek Bully for sedation mg St Jabier Raymond RN, MD 10:01:58 Fentanyl I.V. 25 Jarek Bully for sedation mcg St Jabier Raymond RN, MD 10:16:26 Heparin Bolus I.V. 5000 Jarek Brennon for units St Jabier Raymond RN anticoagulation 10:39:57 Heparin Bolus I.V. 3000 Jarek Brennon for units St Jabier Raymond RN anticoagulation Procedure Log Time Note 9:08:03 Informed consent obtained and on chart 9:08:28 Diagnostic Cath Status : Elective 9:08:50 Arrival Date: 07/11/2020 12:00:00 AM 9:08:51 Admit Source: Other 9:08:58 Insurance Payor : Medicare 9:09:55 ACC Patient presents with Stable Angina CCS Anginal Class 2--Slight limitation of ordinary activity. 9:09:57 Procedure Status Elective Heart Cath (OP). 9:09:59 Time tracking: Regular hours (M-F 7:00 - 5:00) 9:10:05 Plan of Care:Hemodynamics will remain stable., Cardiac rhythm will remain stable., Comfort level will be maintained., Respiratory function will remain adequate., Patient/ family verbilizes understanding of procedure., Procedure tolerated without complication., Recovers from procedure without complications.. 9:10:09 Family in waiting room. 9:10:11 Patient NPO since Midnight. 9:10:20 Lab results pending. 9:10:22 Alarms reviewed by R. N. 9:10:22 Sharps counted by scrub and verified by R.N. 9:21:47 Lab Result : Creatinine 7.4 mg/dl 9:21:47 Lab Result : BUN 48 mg/dl 9:21:47 Lab Result : eGFR AM 7.193724 ml/min 9::47 Lab Result : Hemoglobin 11.6 g/dl 9::47 Lab Result : Hematocrit 36 % 9:22:05 Lab results completed and on chart. 9:22:31 Stress Test: yes; normal ? 9:34:10 Brennon Raymond RN sent for patient. Start room use. 9:44:23 Patient received from Pre/Post Procedure Room to CCL 2 Alert and oriented. Tansferred to table in Supine position. 9:44:25 Warm blankets applied, and hyacinth hugger turned on for patient comfort. 9:44:25 Correct patient and procedure confirmed by team. 9:44:26 ECG and BP/O2 sat monitors applied to patient. 9:49:54 Vital chart was started 9:49:56 Baseline sample Acquired. 9:50:01 Rhythm: sinus rhythm 9:50:02 Full Disclosure recording started 9:50:07 H&P Date Dictated: 07/11/2020 Within 30 days and on chart., H&P Addendum completed by physician on day of procedure. (MUST COMPLETE FOR ALL OUTPATIENTS). 9:50:09 Pre-procedure instructions explained to patient. 9:50:09 Pre-op teaching completed and patient verbalized understanding. 9:50:13 Is the patient allergic to Iodine/contrast media? No. 9:50:13 Was the patient premedicated? Yes 9:50:18 Is patient on blood thinner?Yes 9:50:21 ACC The patient was administered the following blood thiners within the last 24 hours: ACCPlavix 9:50:23 Patient diabetic? No. 9:50:26 Previous problem with sedation/anesthesia? No ? 9:50:28 Snore? Yes 9:50:30 Sleep apnea? No 9:50:35 Deviated septum? No 9:50:36 Opens mouth fully? Yes 9:50:38 Sticks out tongue? Yes 9:50:40 Airway obstruction? No ? 9:50:46 Dentures? Yes in tight 9:50:50 Pre procedure: right dorsailis pedis pulse 1+ Palpable, but thready & weak; easily obliterated 9:50:52 Pre procedure: left dorsailis pedis pulse 1+ Palpable, but thready & weak; easily obliterated 9:50:55 Patient pain scale 0/10 ?. 9:51:00 IV patent on arrival in left forearm with 0.9% NaCl at [facility]. 9:51:07 Right groin area was prepped with chlora-prep and draped in sterile fashion 9:51:08 Physician arrived 9::08 --------ALL STOP TIME OUT------ 9:51:08 Final Timeout: patient, procedure, and site verified with staff and physician. All members of the team are in agreement. 9:51:10 Right groin site verified by team. 9:51:14 Fire Safety Assessment: A--An alcohol-based skin anteseptic being used preoperatively., C--Open oxygen or nitrous oxide is being used., D--An ESU, laser, or fiber-optic light is being used. 9:51:17 Physical assessment completed. ASA score P 2 - A patient with mild systemic disease as per Jarek Baez MD. 9:51:18 Versed 1 mg I.V. was administered by Brennon Raymond RN; for sedation; Verbal order read back and verified. 9:51:25 Fentanyl 50 mcg I.V. was administered by Brennon Raymond RN; for sedation; Verbal order read back and verified. 9:51:28 5) <15 or on dialysis Very severe, or end stage kidney failure. 9:52:16 Maximum allowable contrast dose (3.7 X eGFR X 0.75)20 ml. 9:52:22 Sedation plan: IV Moderate Sedation Medication:Versed, Fentanyl 9:52:27 Use device set Femoral Dx 9:52:28 ACIST Syringe (38468) opened to sterile field. 9:52:28 Bag Decanter () opened to sterile field. 9:52:29 Medline Cath Pack ([id number]) opened to sterile field. 9:52:30 ACIST Hand Control (07621) opened to sterile field. 9:52:30 ACIST Manifold (73519) opened to sterile field. 9:52:31 DIAGNOSTIC Multipack 5Fr catheter set ([id number]) opened to sterile field. 9:52:31 Tegaderm 4 x 4 (1626W) opened to sterile field. 9:52:32 SHEATH 5FR Eldred (KNY471) opened to sterile field. 9:52:33 EMERALD Guide Wire (148-730) opened to sterile field. 9:55:50 0.9% NaCl 100 ml/hr I.V. was administered by Brennon Raymond RN; used for procedure; Verbal order read back and verified. 9:55:58 Oxygen 2 l/min etCO2 Nasal cannula was administered by Brennon Raymond RN; used for procedure; Verbal order read back and verified. 9:56:07 Heparin Flush Bag (1000units/500ml NS) 2 bags added to field was administered by Jarek Baez MD; used for procedure; Verbal order read back and verified. 9:56:11 Risk of Mortality: 1.4 9:56:14 Risk of blood transfusion: 3.0 9:56:15 Lidocaine 2% 20ml vial added to field was administered by Jarek Baez MD; for local anesthetic; Verbal order read back and verified. 9:56:19 Risk of TALHA: 8.9 10:01:55 Versed 0.5 mg I.V. was administered by Brennon Raymond RN; for sedation; Verbal order read back and verified. 10:01:58 Fentanyl 25 mcg I.V. was administered by Brennon Raymond RN; for sedation; Verbal order read back and verified. 10:03:45 Procedure started. 10:03:52 Local anesthetic to right femoral artery with Lidocaine 2% by Jarek Baez MD.INITIAL ACCESS ONLY 10:04:02 A 5 Fr sheath was inserted into the Right Femoral artery 10:04:31 A MULTIPACK JL 4.0 5Fr catheter was advanced over the wire and used for Left Coronary Angiography. 10:05:10 LCA angiography performed. 10:05:23 Injector settings: Ml/sec: 3, Volume: 6, 10:07:13 Catheter removed. 10:07:29 A MULTIPACK 3DRC 5Fr catheter was advanced over the wire and used for Right Coronary Angiography. 10:07:47 RCA angiography performed. 10:07:50 Injector settings: Ml/sec: 3, Volume: 6, 10:08:25 Catheter removed. 10:08:32 A MULTIPACK Pigtail 5 Fr catheter was advanced over the wire and used for LV Angiography. 10:10:07 LV hemodynamics recorded. 10:10:08 LV gram done using BASURTO 10:10:11 Injector settings: Ml/sec: 5, Volume: 15, 10:10:31 EF : 55 % 10:10:38 Catheter removed. 10:12:55 Proceeding to intervention. 10:13:09 [place] OmniWire (66447) opened to sterile field. 10:13:10 INFLATOR Merit BasixCompak (JF3414) opened to sterile field. 10:13:26 GUIDE 6FR XBLAD 3.5 catheter ([id number]) opened to sterile field. 10:14:32 Sheath upsized to a 6 Fr Short. 10:14:40 6 Fr xblad 3.5 guide catheter was inserted over the wire 10:15:33 SHEATH 6FR Eldred (UWL342) opened to sterile field. 10:16:06 Pressure wire advanced. 10:16:07 Wire advanced across lesion. 10:16:26 Heparin Bolus 5000 units I.V. was administered by Brennon Raymond RN; for anticoagulation; Verbal order read back and verified. 10:24:38 LMCA lesion measured at 0.93 with IFR 10:25:23 Inflate balloon Inflation number: 1 A EUPHORA 4.0 x 15 Balloon ([id number]) was prepped and advanced across the LMCA 90, then inflated to 14 JAI for 0:30 (min:sec) 0. 10:26:41 Balloon removed over the wire. 10:28:45 Wire removed. 10:28:50 Guide catheter removed. 10:29:27 GUIDE 6FR JR 4.0 catheter (SJ4QA27) opened to sterile field. 10:30:09 6 Fr jr 4 guide catheter was inserted over the wire 10:30:55 Pressure wire advanced. 10:38:43 Wire advanced across lesion. 10:38:53 mRCA lesion measured at 0.83 with IFR 10:39:57 Heparin Bolus 3000 units I.V. was administered by Brennon Raymond RN; for anticoagulation; Verbal order read back and verified. 10:41:28 Inflate balloon Inflation number: 1 A EUPHORA 3.0 x 15 Balloon ([id number]) was prepped and advanced across the Mid RCA 90, then inflated to 10 JAI for 0:30 (min:sec) 0. 10:43:21 Inflation number: 1 The EUPHORA 3.0 x 15 Balloon ([id number]) was reinflated across the Dist RCA 90, to 12 JAI for 0:30 (min:sec) 0. 10:44:14 Inflation number: 2 The EUPHORA 3.0 x 15 Balloon ([id number]) was reinflated across the Dist RCA 90, to 10 JAI for 0:30 (min:sec) 0. 10:46:07 Balloon removed over the wire. 10:46:09 Wire removed. 10:46:10 Guide catheter removed. 10:46:18 EXOSEAL 6Fr (EX600) opened to sterile field. 10:46:28 Sheath removed intact; hemostasis achieved with Exoseal to the Right Femoral artery. 10:47:11 Procedure ended.(Physican Out) 10:47:21 Fluoroscopy time 10.60 minutes. 10:47:25 Flurop Dose total: 1170 10:47:25 Fluoroscopy dose: 1170 mGy 10:47:33 Dose Area Product 05550 mGy/cm. 10:48:24 Contrast amount:Isovue 300 163ml. 10:48:30 Maximum allowable dose exceeded? No. 10:48:31 Sharps counted by scrub and verified by R.N. 10:48:32 Insertion/operative site no bleeding no hematoma. 10:48:34 Post-op/insertion site Right Femoral artery dressed using a 4 x 4 and Tegaderm. 10:48:36 Post right femoral artery:stable 10:48:38 Post Procedure Pulses reassessed and unchanged 10:48:40 Post procedure rhythm: unchanged. 10:48:43 Estimated blood loss: 5 ml 10:48:44 Post procedure instruction explained to patient.Patient verbalizes understanding. 10:48:44 Patient needs reinforcement of post procedure teaching. 10:50:36 Procedure type changed to Cath procedure, Diagnostic procedure, LHC, [facility] w/Coronaries, FFR/IVUS, FFR Initial, FFR Additional, Sedation Charges, Moderate Sedation 55-69 minutes, PCI procedure, Hemochron ACT Test, PTCA, PTCA Initial x2 10:54:39 ACT drawn and resulted at hi seconds. (normal therapeutic range 180-240 seconds). 10:54:55 Procedure and supply charges have been captured, reviewed, submitted and are correct. 10:55:00 Procedure Complication : No complications 10:55:02 Vital chart was stopped 10:55:16 [facility] Findings: MVD- PCI performed (see procedure note) 10:55:23 Operative report dictated upon procedure completion. 10:55:23 See physician's report for complete and final results. 10:55:25 Report given to Pre/Post Procedure Room. 10:55:28 Patient transfered to Pre/Post Procedure Room with Stretcher. 10:55:30 Procedure ended. 10:55:30 Full Disclosure recording stopped 10:55:38 ACC-PCI Only Patient was given prescriptions, or instructed by Jarek Baez MD to start/continue the following medications upon discharge: Plavix 10:55:41 End room use (Document Last) 11:04:30 End room use (Document Last) 11:05:09 End room use (Document Last) Intervention Summary Intervention Notes Time ActionType Lesion and Equipment Action# Pressure Duration Attributes Used 10:25:23 Inflate LMCA EUPHORA 1 14 00:30 balloon 4.0 x 15 Balloon ([id number]) 10:41:28 Inflate Mid RCA EUPHORA 1 10 00:30 balloon 3.0 x 15 Balloon (QUO2338B) 10:43:21 Reinflate Dist RCA EUPHORA 1 12 00:30 balloon 3.0 x 15 Balloon ([id number]) 10:44:14 Reinflate Dist RCA EUPHORA 2 10 00:30 balloon 3.0 x 15 Balloon ([id number]) Device Usage Item Name Manufacture Quantity Catalog Hospital Part Current Minimal L ot# / Number Charge Number Stock Stock Serial# Code ACIST Acist 1 22322 473338 207491 063639 20 Syringe Medical (25756) Systems Inc Bag Microtek 1 933150 83373 024661 5 Decanter Medical Inc. () Medline Medline 1 [id number] 857323 04218 146359 5 Cath Pack ([id number]) ACIST Hand Acist 1 77879 776437 436981 956263 5 Control Medical (18286) Systems Inc ACIST Acist 1 10563 067137 539084 790478 5 Manifold Medical (64367) Systems Inc DIAGNOSTIC Cardinal 1 VS5969 446753 45898 416647 30 Kindful 5Fr catheter set (CO6302) Tegaderm 4 3M 1 1626W 696827 862597 492231 5 x 4 (1626W) SHEATH 5FR Terumo 1 OCJ571 174424 614542 641653 5 Eldred (ZID404) EMERALD Cardinal 1 502-455 106333 868737 855604 5 Guide Wire Health (502455) MULTIPACK Cardinal 1 711141 5 JL 4.0 5Fr Health catheter MULTIPACK Cardinal 1 168372 5 3DRC 5Fr Health catheter MULTIPACK Cardinal 1 502513 5 Pigtail 5 Health Fr catheter [place] 1 0064723 688518 22414 9924 5 OmniWire (51800) INFLATOR Merit 1 EK4202 730627 063357 911938 15 Merit Medical BasixCompak (WH7553) GUIDE 6FR Cardinal 1 [id number] 579705 737725 845964 10 XBLAD 3.5 Health catheter (88523840) SHEATH 6FR Terumo 1 FIQ874 991270 541364 238652 40 Eldred (FAU774) EUPHORA 4.0 Medtronic 1 [id number] 589665 633156 817441 5 2 44221200 x 15 Balloon ([id number]) GUIDE 6FR Medtronic 1 WM2EP23 948811 26982 096510 1 JR 4.0 catheter (YJ1WX62) EUPHORA 3.0 Medtronic 1 [id number] 560874 762902 256291 5 2 [id number] x 15 Balloon ([id number]) EXOSEAL 6Fr Cardinal 1 EX600 979860 112712 755478 10 (EX600) Health Signature Audit [place] Stage Time Signature Unsigned Intra-Procedure 07/11/2020 Clementina Garrido 11:04:30 AM RT(R) Intra-Procedure 07/11/2020 Brennon Raymond RN 11:05:09 AM Intra-Procedure 07/11/2020 Jarek Mckeon 11:05:25 AM Jabier JONES Signatures Performing Physician : Signature : Jarek Baez MD Date : Time : Monitor : Clementina Garrido RT Signature : Date : Time : Nurse : Delfin Lorigan Signature : RN Date : Time : Nurse : Brennon Segundo RN Signature : Date : Time : [address] [place] [address]
[2020-07-11] MEDS ORDERED: PREDNISONE20 MG PO (08:30)
[2020-07-11] MEDS ORDERED: TUMS X-STR300 MG PO (08:31)
[2020-07-11 08:42] VITALS: BP 186/75; Ht 160 cm; Wt 64.0 kg
[2020-07-11 09:00] LABS: BASOPHILS 0.6 % (0-2); EOSINOPHILS 0.1 % (0-7); HEMOGLOBIN 11.6 g/dL (12-16); LYMPHOCYTES 16.5 % (15-50); MCH 32.5 pg (26.0-34.0); MCHC 32.2 g/dL (31.0-37.0); MCV 100.7 fL (80.0-100.0); MEAN PLATELET VOLUME 7.8 fL (7.4-10.4); MONOCYTES 1.2 % (2-11); NEUTROPHILS 81.6 % (40-80); PLATELET COUNT 225 10x3/uL (130-400); RBC 3.58 10x6/uL (4.00-5.40); RDW 14.7 % (11.5-14.5); WBC 5.6 10x3/uL (4.8-10.8)
[2020-07-11 09:16] LABS: ANION GAP 14.8 mmol/L (8-16); CARBON DIOXIDE 27.8 mmol/L (21.0-32.0); CHOL - HDL RATIO 2.3 ratio (2.3-4.1); CREATININE - SERUM 7.4 mg/dL (0.6-1.3); LDL-HDL RATIO 1.3 ratio (1.5-3.5); POTASSIUM - SERUM 4.6 mmol/L (3.5-5.1)
[2020-07-11] MEDS ORDERED: BAYER CHEWABLE81 MG PO (11:09)
--- NOTE | 2020-07-11 11:10 | NUR ---
PT REC'D TO CATH RECOVERY ROOM 4 VIA STRETCHER. MONITORS ESTAB. SISTER AT BS. SEE DESKTOP PUBLISHER FLOWSHEETS. ALARMS ON AND C/L IN REACH.
--- NOTE | 2020-07-11 11:25 | NUR ---
R GROIN EXOSEAL SITE SOFT, NO S/S BLEEDING OR HEMATOMA, R LEG/FOOT WARM WITH PALP PULSES AND CAP REFILL WNL. VSS. PT DENIES PAIN OR NEEDS. ALARMS ON AND C/L IN REACH.
[2020-07-11] MEDS ORDERED: PRAVASTATIN SOD10 MG PO (11:37)
--- NOTE | 2020-07-11 11:55 | NUR ---
R GROIN SITE SOFT, NO S/S BLEEDING OR HEMATOMA. PULSES PALP. VSS. NEW PRESCRIPTION FOR PRAVASTATIN CALLED IN TO [facility]. ALARMS ON AND C/L IN REACH.
--- NOTE | 2020-07-11 12:10 | NUR ---
PT RESTING QUIETLY, VSS. R GROIN SITE SOFT, NO S/S BLEEDING OR HEMATOMA. PULSES PALP. PT DENIES PAIN OR NEEDS. TOLERATING SIPS OF WATER. SISTER AT BS. ALARMS ON AND C/L IN REACH.
--- NOTE | 2020-07-11 12:40 | NUR ---
R GROIN SITE SOFT, NO S/S BLEEDING OR HEMATOMA. R LEG/FOOT WARM WITH PALP PULSES AND CAP REFILL WNL. VSS. ALARMS ON AND C/L IN REACH.
--- NOTE | 2020-07-11 13:10 | NUR ---
PT RESTING QUIETLY, VSS. R GROIN SITE SOFT, NO S/S BLEEDING OR HEMATOMA. PULSES PALP. PT DENIES PAIN OR NEEDS. ALARMS ON AND C/L IN REACH.
--- NOTE | 2020-07-11 13:58 | NUR ---
R GROIN SITE SOFT, PULSES PALP. HOB ELEVATED GRADUALLY, TEA AND SANDWICH TRAY PROVIDED. ALARMS ON AND C/L IN REACH.
--- NOTE | 2020-07-11 14:19 | NUR ---
PT ATE ALL OF SANDWICH, NO N/V. R GROIN EXOSEAL SITE SOFT, NO S/S BLEEDING OR HEMATOMA, PULSES PALP. PT DENIES PAIN OR NEEDS. ALARMS ON AND C/L IN REACH.
--- NOTE | 2020-07-11 14:36 | NUR ---
ALL DISCHARGE INSTRUCTIONS REVIEWED WITH PT, INCLUDING RESTRICTIONS, MEDS AND F/U APPT. PT VERBALIZES UNDERSTANDING. PIV D/C'D INTACT, DSG APPLIED. PT ALLOWED UP TO GO TO BR INDEPENDENTLY.
--- NOTE | 2020-07-11 14:45 | NUR ---
PT BACK TO ROOM, R GROIN SITE SOFT, NO S/S BLEEDING OR HEMATOMA. PT DRESSED SELF.
--- NOTE | 2020-07-11 15:11 | NUR ---
PT DISCHARGED VIA W/C TO PRIVATE VEHICLE WITH ALL PAPERWORK AND BELONGINGS.
--- NOTE | 2020-07-12 14:27 | CN ---
PATIENT NAME:JESS REYES MEDICAL RECORD: [id number] : 40 LOCATION:D.CAT ADMIT DATE: ACCOUNT: [id number] CONSULTING PHYSICIAN: KENNETH MELVIN MD REFERRING PHYSICIAN: KENNETH MELVIN MD DATE OF CONSULTATION: 07/11/2020 HISTORY OF PRESENT ILLNESS: An 80-year-old female well known to me with history of coronary artery disease, status post 2-vessel intervention, presented to the office initially with complaints of angina, found to have a severe defect consistent with restenosis, although cannot exclude progression of alturas disease. Symptomatology worsened rapidly, had a rest symptomatology, is being brought to the paving and surfacing labourer for diagnostic angiography. PAST MEDICAL HISTORY: Includes: 1. History of hypertension. 2. Hyperlipidemia. 3. Diabetes mellitus. 4. Chronic renal insufficiency. PHYSICAL EXAMINATION: GENERAL: Pleasant, in no acute distress, appears stated age. HEENT: Normocephalic, atraumatic. NECK: No JVD, no bruit. CARDIOVASCULAR: Regular. LUNGS: Kelly clear. ABDOMEN: Soft, nontender. EXTREMITIES: Pulses 2+ and equal. No edema. IMPRESSION: Known history of coronary artery disease with stent worrisome for restenosis. PLAN: For angiography and intervention based on the above. TRANSINT:[id number] Voice Confirmation ID: [id number] DOCUMENT ID: [id number] KENNETH MELVIN MD at 1427 CC: [id number] DICTATION DATE: 07/11/2005 GLASS MOLD REPAIRER: 07/11/20 0927 [facility] 07/11/[address] [address]
--- NOTE | 2020-07-12 14:28 | OP ---
PATIENT NAME: JESS REYES MEDICAL RECORD: [id number] :40 LOCATION:D.CAT ADMISSION DATE: SURGEON: KENNETH MELVIN MD DATE OF OPERATION: 07/11/2020 PROCEDURE: Left heart catheterization, selective coronary angiography, right femoral artery approach, left main and right coronary artery as well as IFR wire to the left main and right coronary. CATHETERS: 1. A 5-Lao sheath. 2. A 5/4 left and right Augustina. 3. A 5/4 pig. The procedure was well tolerated. FINDINGS: Left ventriculography in 30-degree BASURTO view: Normal wall motion and normal systolic function. CORONARY ANATOMY: 1. Left main has about a 70% to 80% stenosis. 2. Circumflex: The circumflex free of disease. 3. Right coronary artery has what appears to be an 80% to 90% stenosis. DESCRIPTION OF PROCEDURE: After the 5-Lao sheath was exchanged for a long 6-Lao sheath, XB LAD guiding catheter was placed easily into the left coronary ostium. The left main stenosis was addressed with a 4.0 x 15 mm Euphora balloon up to 12-14 atmospheres. Final injection shows excellent resolution of a 70% to 80% stenosis to no significant residual. This confirmed with post IFR wire. Next, the right coronary artery, using a JR guide, we placed the IFR wire down the 80% lesion. This confirmed flow restriction with IFR below 0.9. Balloon used was a 3.0 x 15 mm again Euphora balloon at the area of restenosis up to 14 atmospheres for 45 seconds. A final angiogram shows resolution of 80% right coronary artery. No significant residual. IMPRESSION: Successful percutaneous transluminal coronary intervention of both the left main and right IFR wire to the left main and right. Sheath closed with ExoSeal device. The patient was previously on Plavix. Heparin was used during the case. TRANSINT:[id number] Voice Confirmation ID: [id number] DOCUMENT ID: [id number] KENNETH MELVIN MD at 1428 CC: [id number] DICTATION DATE: 07/11/20 1105 COATING MACHINE HELPER: 07/11/20 1234 [facility] 07/11/20 [place] [address]
== END 2020-07-11 15:11 | disposition home or self-care (01) ==
LOC: D.CATH 07:49
PROVIDERS: ATTEND Internal Medicine Interventional Cardiology
DX: I25.10 Atherosclerotic heart disease of native coronary artery without angina pectoris (principal); R07.9 Chest pain, unspecified; R94.39 Abnormal result of other cardiovascular function study; I10 Essential (primary) hypertension; E78.5 Hyperlipidemia, unspecified; E11.9 Type 2 diabetes mellitus without complications; N18.9 Chronic kidney disease, unspecified